=== PATIENT | female | born 1945 | race African-American/Black ===

== ENCOUNTER 2016-06-13 15:33 | Inpatient (IN) | payer MEDICARE, OTHER ==
[2016-06-13 15:50] VITALS: BMI 35.1
--- NOTE | 2016-06-13 16:27 | PDOC ---
History of Present Illness - General History Source: Patient Exam Limitations: No Limitations - History of Present Illness Initial Comments: 06/13/16 18:37 The patient is a 70 year old female, with a significant past medical history of cerebral aneurysm s/p bleed s/p repair (06/2015), HLD, HTN, DM, CAD s/p MIs, CHF , pacemakers, Afib on asa plavix, who presents to the emergency department from [facility] with SOB and cough for 2 weeks. She reports having tightness and soreness in her chest whenever she coughs. She denies any chest pain when she does not cough. She reports having decreased appetite. Patient also notes having chills and being weak since being symptomatic. She reports having a neb treatment with no significant improvement at her [place]. She denies recent fevers, headache or dizziness. She denies recent nausea, vomit, diarrhea or constipation. She denies recent dysuria, frequency, urgency or hematuria. +sick contacts at [facility] Allergies: NKA Social history: Former Smoker. PCP: CARDIO: <Jose A Krueger - Last Filed: 06/13/16 18:37> <Nicolas Riley - Last Filed: 06/13/16 20:57> - General Chief Complaint: Shortness of Breath Stated Complaint: COUGH Time Seen by Provider: 06/13/16 15:56 Past History <Jose A Krueger - Last Filed: 06/13/16 18:37> - Past Medical History Cardiac Disorders: Yes (CAD - [place] X 3 AND AICD PLACEMENT; DISCHARGED FROM [facility] ago) COPD: Yes (CH. BRONCHITIS) CHF: Yes Diabetes: Yes GI Disorders: Yes (GASTRITIS) Disorders: Yes (NEUROGENIC BLADDER) HTN: Yes Hypercholesterolemia: Yes Kidney Stones: No Psychiatric Problems: Yes (depression) Suicide Attempt (Hx): No - Surgical History Cardiac Surgery: Yes (defib. -AICD) Neurologic Surgery: Yes (FOR CEREBRAL aneurysm IN ) - Psycho/Social/Smoking Cessation Hx Anxiety: No Suicidal Ideation: No Smoking History: Former smoker Have you smoked in the past 12 months: No Number of Cigarettes Smoked Daily: 5 If you are a former smoker, when did you quit?: 2005 Information on smoking cessation initiated: No 'Breaking Loose' booklet given: 10/01/16 Hx Alcohol Use: No Drug/Substance Use Hx: No Substance Use Type: None Hx Substance Use Treatment: No <Nicolas Riley - Last Filed: 06/13/16 20:57> - Past Medical History Allergies/Adverse Reactions: Allergies Allergy/AdvReac Type Severity Reaction Status Date / Time No Known Allergies Allergy Verified 03/06/16 18:33 Home Medications: Ambulatory Orders Aspirin [ASA -] 81 mg PO DAILY 01/29/16 Clopidogrel Bisulfate [Plavix -] 75 mg PO DAILY 01/29/16 Colchicine 0.6 mg PO DAILY 01/29/16 Digoxin [Lanoxin -] 0.125 mg PO DAILY 01/29/16 Divalproex [Depakote -] 500 mg PO BID 01/29/16 Docusate Sodium [Colace -] 100 mg PO BID 01/29/16 Ferrous Sulfate 325 mg PO DAILY 01/29/16 Furosemide [Lasix -] 40 mg PO DAILY 01/29/16 Glipizide [Glucotrol] 5 mg PO DAILY 01/29/16 Linaclotide [Linzess] 290 mcg PO DAILY 01/29/16 Lisinopril [Prinivil] 5 mg PO DAILY 01/29/16 Sitagliptin Phosphate [Januvia -] 50 mg PO DAILY 01/29/16 Carvedilol 12.5 mg PO BID #30 tablet 02/27/16 Escitalopram Oxalate [Lexapro -] 20 mg PO DAILY #30 tablet 02/27/16 Ranitidine [Zantac -] 150 mg PO HS #30 tablet 02/27/16 Simvastatin 40 mg PO HS #30 tablet 02/27/16 Spironolactone 25 mg PO DAILY #30 tablet 02/27/16 Zolpidem Tartrate [Ambien] 10 mg PO HS PRN #30 tablet MDD 1 02/27/16 Insulin Sliding Scale [Novolog Vial Sliding Scale -] 0 vial SQ ACHS 03/06/16 Folic Acid - 1 mg PO DAILY tablet 03/11/16 Levofloxacin [Levaquin] 250 mg PO DAILY #1 tablet 03/12/16 Prednisone [Deltasone -] 40 mg PO DAILY #3 tablet 03/12/16 Respiratory Specific PMHX - Complaint Specific PMHX TB (Tuberculosis): No <Nicolas Riley - Last Filed: 06/13/16 20:57> Review of Systems - Review of Systems Able to Perform ROS?: Yes Comments:: 06/13/16 18:37 GENERAL +chills, Loss of Appetite, and weakness. No reported: Fever, Diaphoresis, Malaise, HEENT: No reported: Rhinorrhea, Nasal Congestion, Throat Pain, Throat Swelling, Difficulty Swallowing, Mouth Swelling, Ear Pain, Eye Pain, Visual Changes CARDIOVASCULAR: +chest pressure/pain. No reported: Syncope, Palpitations, Irregular Heart Rate, Peripheral Edema RESPIRATORY: +cough and SOB. No reported: Wheezing, Stridor, Hemoptysis GASTROINTESTINAL: No reported: Abdominal pain, Abdominal Distension, Nausea, Vomiting, Diarrhea, Constipation, Melena, Hematochezia GENITOURINARY: No reported: Dysuria, Frequency, Urgency, Hesitancy, Flank Pain, Genital Pain MUSCULOSKELETAL: No reported: Myalgia, Arthralgia, Joint Swelling, Back pain, Neck Pain SKIN: No reported: Rash, Itching, Pallor HEMEATOLOGIC/IMMUNOLOGIC: No reported: Easy Bleeding, Easy Bruising, Lymphadenopathy, Frequent infections ENDOCRINE: No reported: Unexplained Weight Gain, Unexplained Weight Loss, Heat Intolerance , Cold Intolerance NEUROLOGIC: No reported: Headache, Focal Weakness, Paresthesias, Vertigo, Lightheadedness, Unsteady Gait, Seizure, Mental Status Changes, Incontinence PSYCHIATRIC: No reported: Anxiety, Depression <Jose A Krueger - Last Filed: 06/13/16 18:37> *Physical Exam - Vital Signs Last Vital Signs Temp Pulse Resp BP Pulse Ox 98.9 F 65 22 109/94 94 L 06/13/16 15:46 06/13/16 15:46 06/13/16 15:46 06/13/16 15:46 06/13/16 15:46 - Physical Exam Comments: 06/13/16 18:38 GENERAL: The patient is awake, alert, and fully oriented, obese HEAD: Normocephalic, atraumatic. EYES: extraocular movements intact, sclera anicteric, conjunctiva clear. ENT: Normal voice, Moist mucous membranes. NECK: Normal range of motion, supple LUNGS: Rales and rhonchi bilaterally. +moderately Tachypnic. HEART: Regular rate and rhythm, without murmur, rub or gallop. ABDOMEN: Soft, nontender, normoactive bowel sounds. reducible hernia in the umbilicus No guarding, no rebound.No CVA tenderness EXTREMITIES: Normal range of motion, no edema. No clubbing or cyanosis. No cords , erythema, or tenderness. NEUROLOGICAL: No facial asymmetry, Normal speech. moving all 4 extremities spontaneously and symmetrically PSYCH: Normal mood, normal affect. SKIN: Warm, Dry, normal turgor. <Jose A Krueger - Last Filed: 06/13/16 18:37> - Vital Signs Last Vital Signs Temp Pulse Resp BP Pulse Ox 98.9 F 65 22 109/94 94 L 06/13/16 15:46 06/13/16 15:46 06/13/16 15:46 06/13/16 15:46 06/13/16 15:46 - Physical Exam Comments: 06/13/16 20:56 +subonjunctival hemorrhage in L eye <Nicolas Riley - Last Filed: 06/13/16 20:57> Heart Score/ECG Review - ECG Impressions Comment:: 06/13/16 18:07 Twelve-lead EKG was performed and reviewed by me. ireregularly irregular, left axis deviation ventricular pcing present non specific ST changes <OsvaldoNicolas - Last Filed: 06/13/16 20:57> ED Treatment Course - LABORATORY CBC & Chemistry Diagram: 06/13/16 16:22 06/13/16 16:22 - ADDITIONAL ORDERS Additional order review: Laboratory Results 06/13/16 06/13/16 06/13/16 16:31 16:31 16:22 INR 1.22 H Sodium 137 Potassium 4.8 Chloride 100 Carbon Dioxide 27 Anion Gap 10 BUN 36 H D Creatinine 1.2 H Creat Clearance w eGFR 44.29 Random Glucose 91 D Lactic Acid 1.149 Calcium 8.6 Total Bilirubin 0.8 D AST 56 H D ALT 18 D Alkaline Phosphatase 93 Creatine Kinase 962 H D Troponin I 0.12 H B-Natriuretic Peptide 3262.81 H Total Protein 7.3 Albumin 3.4 06/13/16 16:22 RBC Cancelled MCV Cancelled MCHC Cancelled RDW Cancelled MPV Cancelled Neutrophils % Cancelled Lymphocytes % Cancelled Monocytes % Cancelled Eosinophils % Cancelled Basophils % Cancelled - Medications Given in the ED: ED Medications Discontinued Medications Generic Name Dose Route Start Last Admin Trade Name Narendra PRN Reason Stop Dose Admin Albuterol/Ipratropium 1 amp 06/13/16 17:28 06/13/16 17:57 Duoneb - NEB 06/13/16 17:29 1 amp ONCE ONE Administration Methylprednisolone Sodium Succinate 125 mg 06/13/16 17:28 06/13/16 17:31 Solu-Medrol - IVPB 06/13/16 17:29 125 mg ONCE ONE Administration <Jose A Krueger - Last Filed: 06/13/16 18:37> - LABORATORY CBC & Chemistry Diagram: 06/13/16 18:43 06/13/16 16:22 - RADIOLOGY Radiology Studies Ordered: Category Date Time Status CHEST X-RAY PORTABLE* [RAD] Stat Radiology 06/13/16 16:24 Ordered <Nicolas Riley - Last Filed: 06/13/16 20:57> Medical Decision Making - Medical Decision Making 06/13/16 18:04 70y F hx of chf, copd/asthma, cad from [facility] here with worsening cough/sob for several weeks on exam pt noted to be mildly tachypniec, vitals noted for o2 sat of 94% pulmonary exam noted for wheezing/rhonchi diffusely suspect copd exacerbation, ?trigger of pna vs viral syndrome vs influenza will ck cxr, labs will give nebs, steroids will reassess, likley admission A portion of this note was documented by scribe services under my direction. I have reviewed the details of the note, within reason, and agree with the documentation with the following case summary and management plan written by me 06/13/16 19:34 pts labs reiovewed no leukocytosis noted pts trop at .12 and bnp slightly elevated pt feeling improved with solumedrol and duo neb will admit for copd ecacerbation - likely viral exaccerbation case d/w dr. owens agreed with admission as trop is .[address] in tele until ruled out Case discussed in detail with admitting physician including history, physical exam and ancillary studies. Admitting physician has assumed care for the patient, will follow all pending diagnostics and will complete the evaluation and treatment. <Nicolas Riley - Last Filed: 06/13/16 20:57> *DC/Admit/Observation/Transfer - Attestations Scribe Attestion: 06/13/16 18:38 Documentation prepared by Jose A Krueger, acting as medical collector for Nicolas Riley MD. <Jose A Krueger - Last Filed: 06/13/16 18:37> - Discharge Dispostion Admit: Yes <Nicolas Riley - Last Filed: 06/13/16 20:57> Diagnosis at time of Disposition: COPD exacerbation, Subconjunctival hemorrhage of left eye Atrial fibrillation Qualifiers: Atrial fibrillation type: chronic Qualified Code(s): I48.2 - Chronic atrial fibrillation - Discharge Dispostion Condition at time of disposition: Stable - Referrals
[2016-06-13 16:55] LABS: INR 1.22 (0.82-1.09); PROTHROMBIN TIME (PATIENT) 13.5 SEC (9.98-11.88)
[2016-06-13 17:19] LABS: ALBUMIN 3.4 g/dl (3.4-5.0); BILIRUBIN,TOTAL 0.8 mg/dL (0.2-1.0); CALCIUM 8.6 mg/dL (8.5-10.1); CREATININE 1.2 mg/dL (0.55-1.02); TOT PROT 7.3 g/dl (6.4-8.2)
[2016-06-13 17:22] LABS: TROPONIN I 0.12 ng/ml (0.00-0.05)
[2016-06-13] MEDS ORDERED: methylPREDNISolone NA SUCC 125 MG/2 ML VIAL IVPB ONE (17:28)
[2016-06-13] MEDS ORDERED: ALBUTEROL SO4 2.5/IPRATROPIUM 0.5 INH SOL 3 ML VIAL.NEB. NEB ONE (17:28)
[2016-06-13] MEDS ORDERED: methylPREDNISolone NA SUCC 125 MG/2 ML VIAL ONE (17:32)
[2016-06-13 19:15] LABS: BASOPHIL 0.6 % (0-2.0); EOSINOPHIL 2.3 % (0-4.5); MCH 27.5 pg (25.7-33.7); MCHC 32.4 g/dl (32.0-36.0); MEAN CELL VOLUME 84.9 fl (80-96); NEUTROPHILS 48.6 % (42.8-82.8); RDW 19.2 % (11.6-15.6); WHITE BLOOD COUNT 5.4 K/mm3 (4.0-10.0)
[2016-06-13 20:14] LABS: PLATELET COUNT 112 K/MM3 (134-434)
[2016-06-13 20:15] LABS: MEAN PLT VOLUME 11.5 fl (7.5-11.1)
[2016-06-13 20:16] LABS: PLATELET COMMENT2 NO CLUMPING NOTED; PLATELET COMMENT3 NO CLOTTING DETECTED; PLATELET ESTIMATE SLT DECREASED (NORMAL)
[2016-06-13] MEDS ORDERED: PATIENT'S OWN MEDICATION (NON-FORMULARY) (Zolpidem Tartrate [Ambien] 10 MG) PO PRN (21:34)
[2016-06-13] MEDS ORDERED: PATIENT'S OWN MEDICATION (NON-FORMULARY) (Simvastatin [Simvastatin] 40 MG) PO SCH (22:00)
[2016-06-13] MEDS ORDERED: CARVEDILOL 12.5 MG TABLET (FP) ONE (22:27)
[2016-06-13] MEDS ORDERED: DIVALPROEX SODIUM 500 MG TABLET E.C. ONE (22:28)
[2016-06-13] MEDS ORDERED: ATORVASTATIN CA 40 MG TABLET (FP) ONE (22:28)
[2016-06-13] MEDS ORDERED: DOCUSATE SODIUM 100 MG CAPSULE (FP) PO ONE (22:28)
[2016-06-13] MEDS: ATORVASTATIN CA 20 MG TABLET (FP) PO SCH (22:41)
[2016-06-13] MEDS: DIVALPROEX SODIUM 500 MG TABLET E.C. PO SCH (22:41)
[2016-06-13] MEDS: CARVEDILOL 12.5 MG TABLET (FP) PO SCH (22:41)
[2016-06-13] MEDS: DOCUSATE SODIUM 100 MG CAPSULE (FP) PO SCH (22:41)
[2016-06-14] MEDS: guaiFENesin/D-METHORPHAN HB 10 ML UNIT-DOSE CUPS PO PRN ×3 (01:36→17:19)
[2016-06-14] MEDS: ACETAMINOPHEN 325 MG TABLET (FP) PO PRN ×2 (01:38→20:41)
[2016-06-14] MEDS: methylPREDNISolone NA SUCC 40 MG/1 ML VIAL IVPB SCH ×3 (01:39→18:07)
[2016-06-14] MEDS: glipiZIDE 5 MG TABLET (FP) PO SCH (06:32)
[2016-06-14] MEDS: sitaGLIPtin PHOSPHATE 50 MG TABLET PO SCH (06:32)
[2016-06-14] MEDS: INSULIN SLIDING SCALE (NOVOLOG) 1 VIAL SQ SCH ×3 (06:34→17:28)
[2016-06-14 08:18] LABS: BASOPHIL 0.2 % (0-2.0); MCH 27.3 pg (25.7-33.7); MCHC 32.3 g/dl (32.0-36.0); MEAN CELL VOLUME 84.3 fl (80-96); MEAN PLT VOLUME 11.5 fl (7.5-11.1); NEUTROPHILS 76.6 % (42.8-82.8); PLATELET COUNT 107 K/MM3 (134-434); WHITE BLOOD COUNT 5.3 K/mm3 (4.0-10.0)
[2016-06-14 08:38] LABS: ALBUMIN 3.1 g/dl (3.4-5.0); BILIRUBIN,TOTAL 0.7 mg/dL (0.2-1.0); CALCIUM 8.3 mg/dL (8.5-10.1); CREATININE 1.3 mg/dL (0.55-1.02)
[2016-06-14] MEDS ORDERED: PATIENT'S OWN MEDICATION (NON-FORMULARY) (Colchicine [Colchicine] 0.6 MG) PO SCH (10:00)
--- NOTE | 2016-06-14 10:30 | HP ---
Admitting History and Physical - Primary Care Physician PCP: Madelaine Collier - Admission Chief Complaint: SOB , chest pain History of Present Illness: - History of Present Illness Initial Comments: 06/13/16 18:37 The patient is a 70 year old female, with a significant past medical history of cerebral aneurysm s/p bleed s/p repair (06/2015), HLD, HTN, DM, CAD s/p MIs, CHF , pacemakers, Afib on asa plavix, who presents to the emergency department from [facility] with SOB and cough for 2 weeks. She reports having tightness and soreness in her chest whenever she coughs. She denies any chest pain when she does not cough. She reports having decreased appetite. Patient also notes having chills and being weak since being symptomatic. She reports having a neb treatment with no significant improvement at her [place]. She denies recent fevers, headache or dizziness. She denies recent nausea, vomit, diarrhea or constipation. She denies recent dysuria, frequency, urgency or hematuria. +sick contacts at [facility] Allergies: NKA Social history: Former Smoker. PCP: CARDIO: Pt examined by in Tele KNown to me from [facility]- was seen by me earlier this week for SOB -- started on PO prednisone , CXR done in [place] negative Pt was not feeling better and son wanted her to be transferred to hospital for evaluation. She c/o chest pain when she coughs. Today breathing is better, has a productive cough. 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 (c/p cerebral bleed (aneurysm-->repair) 07/2015 in [place]) Cardiovascular: Yes: AFIB, CHF (systolic), HTN, DC Renal/: Yes: Renal Inusuff ...: No Psych: Yes: Bipolar, Depression - Past Surgical History Past Surgical History: Yes: AICD - Smoking History Smoking history: Former smoker Have you smoked in the past 12 months: No Aproximately how many cigarettes per day: 10 If you are a former smoker, when did you quit?: 2005 - Alcohol/Substance Use Hx Alcohol Use: Yes (SOCIALLY) Home Medications - Allergies Allergies/Adverse Reactions: Allergies Allergy/AdvReac Type Severity Reaction Status Date / Time No Known Allergies Allergy Verified 03/06/16 18:33 - Home Medications Home Medications: Ambulatory Orders Aspirin [ASA -] 81 mg PO DAILY 01/29/16 Clopidogrel Bisulfate [Plavix -] 75 mg PO DAILY 01/29/16 Colchicine 0.6 mg PO DAILY 01/29/16 Digoxin [Lanoxin -] 0.125 mg PO DAILY 01/29/16 Divalproex [Depakote -] 500 mg PO BID 01/29/16 Docusate Sodium [Colace -] 100 mg PO BID 01/29/16 Ferrous Sulfate 325 mg PO DAILY 01/29/16 Furosemide [Lasix -] 40 mg PO DAILY 01/29/16 Glipizide [Glucotrol] 5 mg PO DAILY 01/29/16 Linaclotide [Linzess] 290 mcg PO DAILY 01/29/16 Lisinopril [Prinivil] 5 mg PO DAILY 01/29/16 Sitagliptin Phosphate [Januvia -] 50 mg PO DAILY 01/29/16 Carvedilol 12.5 mg PO BID #30 tablet 02/27/16 Escitalopram Oxalate [Lexapro -] 20 mg PO DAILY #30 tablet 02/27/16 Ranitidine [Zantac -] 150 mg PO HS #30 tablet 02/27/16 Simvastatin 40 mg PO HS #30 tablet 02/27/16 Spironolactone 25 mg PO DAILY #30 tablet 02/27/16 Zolpidem Tartrate [Ambien] 10 mg PO HS PRN #30 tablet MDD 1 02/27/16 Insulin Sliding Scale [Novolog Vial Sliding Scale -] 0 vial SQ ACHS 03/06/16 Folic Acid - 1 mg PO DAILY tablet 03/11/16 Levofloxacin [Levaquin] 250 mg PO DAILY #1 tablet 03/12/16 Prednisone [Deltasone -] 40 mg PO DAILY #3 tablet 03/12/16 Family Disease History - Family Disease History Family Disease History: Other: Daughter (STOPPED URING MARIJUANA; BIPOLAR DISORDER;HTN) Review of Systems - Review of Systems Constitutional: denies: Chills, Fever Cardiovascular: reports: Chest Pain. denies: Palpitations Respiratory: reports: Cough, SOB, Wheezing Physical Examination Vital Signs: Vital Signs Temperature 98 F 06/14/16 06:00 Pulse Rate 72 06/14/16 06:00 Respiratory Rate 18 06/14/16 09:00 Blood Pressure 124/54 06/14/16 06:00 O2 Sat by Pulse Oximetry (%) 99 06/14/16 09:00 Constitutional: Yes: No Distress, Calm Cardiovascular: Yes: Pulse Irregular Respiratory: Yes: Diminished, Rhonchi Gastrointestinal: Yes: Normal Bowel Sounds, Soft, Abdomen, Obese. No: Distention Edema: Yes Edema: LLE: Trace, RLE: Trace Psychiatric: Yes: Alert, Oriented Labs: CBC, BMP 06/14/16 05:45 06/14/16 05:45 Imaging - Results Chest X-ray: Image Reviewed (No infiltrate) EKG: Image Reviewed (Afib) Problem List - Problems (1) COPD exacerbation Code(s): J44.1 - CHRONIC OBSTRUCTIVE PULMONARY DISEASE W (ACUTE) EXACERBATION (2) Chest pain Code(s): R07.9 - CHEST PAIN, UNSPECIFIED Qualifiers: Chest pain type: unspecified Qualified Code(s): R07.9 - Chest pain, unspecified (3) NSTEMI (non-ST elevated myocardial infarction) Code(s): I21.4 - NON-ST ELEVATION (NSTEMI) MYOCARDIAL INFARCTION (4) Atrial fibrillation Code(s): I48.91 - UNSPECIFIED ATRIAL FIBRILLATION Qualifiers: Atrial fibrillation type: chronic Qualified Code(s): I48.2 - Chronic atrial fibrillation Assessment/Plan PLAN -- Check cardiac enzymes -- spoke with [employer] Grinder -- will need stress test -- on Solumedrol -- Nebs as needed -- DVT prophylaxis-- Lovenox -- Pt not on AC due to h/o alcoholic abuse, pt is now in [facility] [place] , but tells me she does not want to go there
[2016-06-14] MEDS: DOCUSATE SODIUM 100 MG CAPSULE (FP) PO SCH ×2 (11:08→22:11)
[2016-06-14] MEDS: SPIRONOLACTONE 25 MG TABLET (FP) PO SCH (11:09)
[2016-06-14] MEDS: CARVEDILOL 12.5 MG TABLET (FP) PO SCH ×2 (11:09→22:11)
[2016-06-14] MEDS: FUROSEMIDE 40 MG TABLET (FP) PO SCH (11:09)
[2016-06-14] MEDS: ESCITALOPRAM OXALATE 20 MG TABLET (FP) PO SCH (11:09)
[2016-06-14] MEDS: ASPIRIN 81 MG CHEWABLE TABLETS PO SCH (11:09)
[2016-06-14] MEDS: LISINOPRIL 5 MG TABLET (FP) PO SCH (11:09)
[2016-06-14] MEDS: CLOPIDOGREL BISULFATE 75 MG TABLET (FP) PO SCH (11:09)
[2016-06-14] MEDS: DIGOXIN 0.125 MG TABLET (FP) PO SCH (11:10)
[2016-06-14] MEDS: COLCHICINE 0.6 MG TABLET (FP) PO SCH (11:10)
[2016-06-14] MEDS: PANTOPRAZOLE 40 MG TABLET (FP) PO SCH (11:10)
[2016-06-14] MEDS ORDERED: PT OWN MED DRAWER 7, Y5N ONE (11:12)
[2016-06-14] MEDS: DIVALPROEX SODIUM 500 MG TABLET E.C. PO SCH ×2 (11:13→22:14)
[2016-06-14] MEDS: POLYETHYLENE GLYCOL 3350 119 GM BTL PO SCH (11:14)
[2016-06-14 11:49] LABS: TROPONIN I 0.05 ng/ml (0.00-0.05)
--- NOTE | 2016-06-14 11:51 | CON.CARD ---
Consult Consult Specialty:: Cardiology Referred by:: Dr. Vaughn Reason for Consultation:: Chest pain, elevated troponin - History of Present Illness Chief Complaint: SOB, cough, chest tightness History of Present Illness: 70 year old woman with a history of HTN, HLD, DM II, CAD reported prior WI's x3 , last cardiac cath 12/2015 ([place]) showed non-obstructive CAD (Left Main: 30% ; LAD prox 30%, mid 30%, distal 30%; LCs mid 30%; om1 40%; rcX Dominant vessel, mid 30%; LVEF 30%; peripheral vessel disease including left external iliac 80% stenosis), Chronic systolic CHF with severe LV systolic dysfunction s/p Satya Sci ICD 2006, AFib previously on coumadin stopped after ICH (cerebral aneursym s/p clipping), COPD, prior etoh abuse, bipolar admitted from [place] with c/o cough, sob , chest tightness. Pt. seen and examined today in [facility]. coughing throughout the exam. no current chest pain. does note intermittent b/l LE edema improved with leg elevation. 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 (c/p cerebral bleed (aneurysm-->repair) 07/2015 in [place]) Cardio/Vascular: Yes: AFIB, CHF (systolic), HTN, WI Pulmonary: Yes: Bronchitis Renal/: Yes: Renal Inusuff ...: No Psych: Yes: Bipolar, Depression - Past Surgical History Past Surgical History: Yes: AICD - Alcohol/Substance Use Hx Alcohol Use: Yes (SOCIALLY) - Smoking History Smoking history: Former smoker Have you smoked in the past 12 months: No Aproximately how many cigarettes per day: 10 If you are a former smoker, when did you quit?: 2005 - Social History Usual Living Arrangement: Custodial ADL: Support Services History of Recent Travel: No Home Medications - Allergies Allergies/Adverse Reactions: Allergies Allergy/AdvReac Type Severity Reaction Status Date / Time No Known Allergies Allergy Verified 03/06/16 18:33 - Home Medications Home Medications: Ambulatory Orders Aspirin [ASA -] 81 mg PO DAILY 01/29/16 Clopidogrel Bisulfate [Plavix -] 75 mg PO DAILY 01/29/16 Colchicine 0.6 mg PO DAILY 01/29/16 Digoxin [Lanoxin -] 0.125 mg PO DAILY 01/29/16 Divalproex [Depakote -] 500 mg PO BID 01/29/16 Docusate Sodium [Colace -] 100 mg PO BID 01/29/16 Ferrous Sulfate 325 mg PO DAILY 01/29/16 Furosemide [Lasix -] 40 mg PO DAILY 01/29/16 Glipizide [Glucotrol] 5 mg PO DAILY 01/29/16 Linaclotide [Linzess] 290 mcg PO DAILY 01/29/16 Lisinopril [Prinivil] 5 mg PO DAILY 01/29/16 Sitagliptin Phosphate [Januvia -] 50 mg PO DAILY 01/29/16 Carvedilol 12.5 mg PO BID #30 tablet 02/27/16 Escitalopram Oxalate [Lexapro -] 20 mg PO DAILY #30 tablet 02/27/16 Ranitidine [Zantac -] 150 mg PO HS #30 tablet 02/27/16 Simvastatin 40 mg PO HS #30 tablet 02/27/16 Spironolactone 25 mg PO DAILY #30 tablet 02/27/16 Zolpidem Tartrate [Ambien] 10 mg PO HS PRN #30 tablet MDD 1 02/27/16 Insulin Sliding Scale [Novolog Vial Sliding Scale -] 0 vial SQ ACHS 03/06/16 Folic Acid - 1 mg PO DAILY tablet 03/11/16 Levofloxacin [Levaquin] 250 mg PO DAILY #1 tablet 03/12/16 Prednisone [Deltasone -] 40 mg PO DAILY #3 tablet 03/12/16 Family Disease History - Family Disease History Family Disease History: Other: Daughter (STOPPED URING MARIJUANA; BIPOLAR DISORDER;HTN) Review of Systems - Review of Systems Constitutional: denies: No Symptoms, Chills, Diaphoresis, Fever, Lethargy, Loss of Appetite, Malaise, Night Sweats, Unintentional Wgt. Loss, Weakness, Other Eyes: denies: No Symptoms, Blind Spots, Blurred Vision, Double Vision, Eye Pain , Floaters, Photophobia, Recent Change in Vision, Other HENT: denies: No Symptoms, Difficult Swallowing, Ear Discharge, Ear Pain, Epistaxis, Gingival Bleeding, Hearing Loss, Mouth Swelling, Nasal Congestion, Ocular Prosthesis, Throat Pain, Toothache, Ringing in Ears, Other Neck: denies: No Symptoms, Decreased ROM, Lumps, Pain on Movement, Stiffness, Swollen Glands, Tenderness, Other Cardiovascular: reports: Chest Pain, Edema, Shortness of Breath. denies: No Symptoms, Palpitations, Other Respiratory: reports: Cough, SOB, SOB on Exertion, Wheezing. denies: No Symptoms, Exercise Intolerance, Hemoptysis, Orthopnea, PND, Snoring, Other Gastrointestinal: denies: No Symptoms, Abdominal Pain, Bloating, Constipation, Diarrhea, Dysphagia, Indigestion, Melena, Nausea, Rectal Bleeding, Vomiting, Vomiting Blood, Other Genitourinary: denies: No Symptoms, Burning, Discharge, Dysuria, Flank Pain, Frequency, Hematuria, Incontinence, Lesions, Menses, Pain, Testicular Mass, Testicular Pain, Testicular Swelling, Urgency, Vaginal Bleeding, Other Breasts: denies: No Symptoms Reported, See HPI, Breast Implants, Discharge from Nipple, Lumps, Pain, Skin Changes, Other Musculoskeletal: denies: No Symptoms, Back Pain, Crepitus, Decreased ROM, Extremity Pain, Joint Pain, Joint Swelling, Muscle Pain, Muscle Cramps, Muscle Weakness, Other Integumentary: denies: No Symptoms, Blister, Bruising, Change in Color, Eczema, Erythema, Incision, Lesions, Lump, Pallor, Pruritis, Rash, Wound, Other Neurological: denies: No Symptoms, Change in LOC, Change in Speech, Confusion, Dizziness, Headache, Incoordination, Numbness, Parasthesia, Pre-Existing Deficit , Seizure, Syncope, Tremors, Unsteady Gait, Weakness, Other Endocrine: denies: No Symptoms, Excessive Sweating, Flushing, Increased Hunger, Increased Thirst, Intolerance to Cold, Intolerance to Heat, Unexplained Weight Gain, Unexplained Weight Loss, Other Hematology/Lymphatic: denies: No Symptoms, Easily Bruised, Excessive Bleeding, Swollen Glands, Other Psychiatric: denies: No Symptoms, Altered Sleep Pattern, Anxiety, Depression, Hallucinations, Panic, Paranoia, Suicidal, Other - Risk Factors Known Risk Factors: Yes: Diabetes Mellitus, Hypercholesterolemia, Hypertension, Prior WI /Emb Stroke Vital Signs: Vital Signs Temperature 98 F 06/14/16 06:00 Pulse Rate 68 06/14/16 11:32 Respiratory Rate 18 06/14/16 11:32 Blood Pressure 129/61 06/14/16 11:32 O2 Sat by Pulse Oximetry (%) 99 06/14/16 09:00 Constitutional: Yes: No Distress, Calm, Obese Eyes: Yes: Conjunctiva Clear, EOM Intact, PERRL HENT: Yes: Atraumatic, Normocephalic Neck: Yes: Supple, Trachea Midline Respiratory: Yes: Regular, Cough, On Nasal O2, Rhonchi, SOB, Wheezes. No: Rales Gastrointestinal: Yes: WNL, Normal Bowel Sounds, Soft. No: Distention, Tenderness Renal/: Yes: WNL Cardiovascular: Yes: Pulse Irregular. No: Regular Rate and Rhythm, Bradycardia , Tachycardia, Gallop, Rub, Varicosities JVD: No Carotid Bruit: No PMI: Non-Displaced Heart Sounds: Yes: S1, S2. No: Split S2, S3, S4, Clicks, Gallop, Rub Murmur: No: Systolic Murmur, Diastolic Murmur Musculoskeletal: Yes: WNL Extremities: Yes: WNL Edema: LLE: Trace, RLE: Trace Peripheral Pulses WNL: Yes Peripheral Pulses: 2+ Left Doralis Pedis, 2+ Right Dorsalis Pedis Integumentary: Yes: WNL Neurological: Yes: Alert, Oriented Psychiatric: Yes: Alert, Oriented - Other Data Labs, Other Data: CBC, BMP 06/14/16 05:45 06/14/16 05:45 INR, PTT INR 1.22 (0.82-1.09) H 06/13/16 16:31 Troponin, BNP 06/14/16 05:45 Troponin I Cancelled Troponin, BNP 06/14/16 05:45 Troponin I Cancelled ekg-not in chart, reportedly vpaced Echo: Pending, Report Reviewed Prior Cardiac Procedures: Cardiac Catheterization Ejection Fraction %: LVEF < 40 % Imaging - Results Chest X-ray: Report Reviewed, Image Reviewed EKG: Report Reviewed, Image Reviewed Other: Report Reviewed, Image Reviewed Assessment/Plan 70 year old woman with a history of HTN, HLD, DM II, CAD reported prior WI's x3 , last cardiac cath 12/2015 ([place]) showed non-obstructive CAD (Left Main: 30% ; LAD prox 30%, mid 30%, distal 30%; LCs mid 30%; om1 40%; rcX Dominant vessel, mid 30%; LVEF 30%; peripheral vessel disease including left external iliac 80% stenosis), Chronic systolic CHF with severe LV systolic dysfunction s/p Satya Sci ICD 2006, AFib previously on coumadin stopped after ICH (cerebral aneursym s/p clipping), COPD, prior etoh abuse, bipolar admitted from [place] with c/o cough, sob , chest tightness. Chest pain-atypical, likely secondary to bronchitis, unlikely acs -recent cardiac cath as above, non-obs CAD -1st trop 0.12 trended down to 0.05 -check 3rd set of cardiac enzymes this afternoon -cont home cardiac meds -treat for bronchitis and monitor for improvement in symptoms -cont tele monitoring SOB-likely bronchitis, appears overall euvolemic -known chronic systolic chf and severe LV systolic dysfunction -cont home lasix for now -tx of acute bronchitis -will monitor for need for increased diuresis afib-hr controlled -cont digoxin and coreg -cont ASA -not on full AC as per prior reports due to history of ICH and cerebral aneurysm -monitor tele
--- NOTE | 2016-06-14 13:38 | EKG ---
Test Reason : Blood Pressure : / mmHG Vent. Rate : 071 BPM Atrial Rate : 192 BPM P-R Int : 000 ms QRS Dur : 102 ms QT Int : 402 ms P-R-T Axes : 000 -43 167 degrees QTc Int : 436 ms ATRIAL FIBRILLATION WITH DEMAND ventricular-paced complexes LEFT AXIS DEVIATION MINIMAL VOLTAGE CRITERIA FOR LVH, MAY BE NORMAL VARIANT NONSPECIFIC ST AND T WAVE ABNORMALITY ABNORMAL ECG WHEN COMPARED WITH ECG OF 07-MAR-2016 00:25, NO SIGNIFICANT CHANGE WAS FOUND Confirmed by VINAY ASHLEY MD ([id number]) on 06/14/2016 1:37:43 PM Referred By: Confirmed By:VINAY ASHLEY MD
[2016-06-14] MEDS: ZOLPIDEM TARTRATE 5 MG TABLET PO PRN (22:11)
[2016-06-14] MEDS: ATORVASTATIN CA 20 MG TABLET (FP) PO SCH (22:11)
[2016-06-14] MEDS: ALBUTEROL SO4 2.5/IPRATROPIUM 0.5 INH SOL 3 ML VIAL.NEB. NEB PRN (22:40)
[2016-06-15] MEDS: methylPREDNISolone NA SUCC 40 MG/1 ML VIAL IVPB SCH ×3 (02:46→17:59)
[2016-06-15] MEDS: ALBUTEROL SO4 2.5/IPRATROPIUM 0.5 INH SOL 3 ML VIAL.NEB. NEB PRN (06:23)
[2016-06-15] MEDS: glipiZIDE 5 MG TABLET (FP) PO SCH (06:43)
[2016-06-15] MEDS: sitaGLIPtin PHOSPHATE 50 MG TABLET PO SCH (06:43)
[2016-06-15] MEDS: INSULIN SLIDING SCALE (NOVOLOG) 1 VIAL SQ SCH ×3 (06:43→17:59)
--- NOTE | 2016-06-15 09:27 | PN ---
Progress Note, Physician Chief Complaint: has wheezing denies chest pain - Current Medication List Current Medications: Active Medications Acetaminophen (Tylenol -) 650 mg PO Q6H PRN PRN Reason: FEVER OR PAIN Last Admin: 06/14/16 20:41 Dose: 650 mg Albuterol/Ipratropium (Duoneb -) 1 amp NEB Q6H PRN PRN Reason: SHORTNESS OF BREATH Last Admin: 06/15/16 06:23 Dose: 1 amp Aspirin (Asa -) 81 mg PO DAILY [facility] Last Admin: 06/14/16 11:09 Dose: 81 mg Atorvastatin Calcium (Lipitor -) 20 mg PO HS [facility] Last Admin: 06/14/16 22:11 Dose: 20 mg Carvedilol (Coreg -) 12.5 mg PO BID [facility] Last Admin: 06/14/16 22:11 Dose: 12.5 mg Clopidogrel Bisulfate (Plavix -) 75 mg PO DAILY [facility] Last Admin: 06/14/16 11:09 Dose: 75 mg Colchicine (Colcrys -) 0.6 mg PO DAILY [facility] Last Admin: 06/14/16 11:10 Dose: 0.6 mg Digoxin (Lanoxin -) 0.125 mg PO DAILY [facility] Last Admin: 06/14/16 11:10 Dose: 0.125 mg Divalproex Sodium (Depakote -) 500 mg PO BID [facility] Last Admin: 06/14/16 22:14 Dose: 500 mg Docusate Sodium (Colace -) 100 mg PO BID [facility] Last Admin: 06/14/16 22:11 Dose: 100 mg Escitalopram Oxalate (Lexapro -) 20 mg PO DAILY [facility] Last Admin: 06/14/16 11:09 Dose: 20 mg Furosemide (Lasix -) 40 mg PO DAILY [facility] Last Admin: 06/14/16 11:09 Dose: 40 mg Glipizide (Glucotrol -) 5 mg PO ACBK [facility] Last Admin: 06/15/16 06:43 Dose: 5 mg Guaifenesin (Robitussin Dm -) 10 ml PO Q6H PRN Last Admin: 06/14/16 17:19 Dose: 10 ml Insulin Aspart (Novolog Vial Sliding Scale -) 1 vial SQ TIDAC [facility] PRN Reason: Protocol Last Admin: 06/15/16 06:43 Dose: 2 units Lisinopril (Prinivil) 5 mg PO DAILY [facility] Last Admin: 06/14/16 11:09 Dose: 5 mg Methylprednisolone Sodium Succinate (Solu-Medrol -) 40 mg IVPB Q8H-IV [facility] Last Admin: 06/15/16 02:46 Dose: 40 mg Pantoprazole Sodium (Protonix -) 40 mg PO DAILY [facility] Last Admin: 06/14/16 11:10 Dose: 40 mg Polyethylene Glycol (Miralax (For Daily Use) -) 17 gm PO DAILY [facility] Last Admin: 06/14/16 11:14 Dose: 17 grams Sitagliptin Phosphate (Januvia -) 50 mg PO ACBK [facility] Last Admin: 06/15/16 06:43 Dose: 50 mg Spironolactone (Aldactone -) 25 mg PO DAILY [facility] Last Admin: 06/14/16 11:09 Dose: 25 mg Zolpidem Tartrate (Ambien -) 5 mg PO HS PRN PRN Reason: INSOMNIA Last Admin: 06/14/16 22:11 Dose: 5 mg - Objective Vital Signs: Vital Signs Temperature 98.4 F 06/15/16 02:27 Pulse Rate 74 06/15/16 06:00 Respiratory Rate 20 06/15/16 06:00 Blood Pressure 129/74 06/15/16 06:00 O2 Sat by Pulse Oximetry (%) 96 06/14/16 21:00 Constitutional: Yes: No Distress Cardiovascular: Yes: Pulse Irregular Respiratory: Yes: Diminished, Rhonchi Gastrointestinal: Yes: Normal Bowel Sounds, Soft, Abdomen, Obese. No: Distention, Tenderness Edema: No Labs: CBC, BMP 06/14/16 05:45 06/14/16 05:45 INR, PTT INR 1.22 (0.82-1.09) H 06/13/16 16:31 Problem List - Problems (1) COPD exacerbation Code(s): J44.1 - CHRONIC OBSTRUCTIVE PULMONARY DISEASE W (ACUTE) EXACERBATION (2) Chest pain Code(s): R07.9 - CHEST PAIN, UNSPECIFIED Qualifiers: Chest pain type: unspecified Qualified Code(s): R07.9 - Chest pain, unspecified (3) NSTEMI (non-ST elevated myocardial infarction) Code(s): I21.4 - NON-ST ELEVATION (NSTEMI) MYOCARDIAL INFARCTION (4) Atrial fibrillation Code(s): I48.91 - UNSPECIFIED ATRIAL FIBRILLATION Qualifiers: Atrial fibrillation type: chronic Qualified Code(s): I48.2 - Chronic atrial fibrillation Assessment/Plan PLAN -- cardiac enzymes negative -- start Ceftriaxone -- on Solumedrol-- continue current dose -- Nebs as needed -- DVT prophylaxis-- Lovenox -- Pt not on AC due to h/o alcoholic abuse, pt is now in [facility] [place] , but tells me she does not want to go there
[2016-06-15] MEDS: ALBUTEROL SO4 2.5/IPRATROPIUM 0.5 INH SOL 3 ML VIAL.NEB. NEB SCH ×4 (10:00→21:48)
[2016-06-15] MEDS: DOCUSATE SODIUM 100 MG CAPSULE (FP) PO SCH ×2 (10:03→21:34)
[2016-06-15] MEDS: DIGOXIN 0.125 MG TABLET (FP) PO SCH (10:03)
[2016-06-15] MEDS: CLOPIDOGREL BISULFATE 75 MG TABLET (FP) PO SCH (10:03)
[2016-06-15] MEDS: FUROSEMIDE 40 MG TABLET (FP) PO SCH (10:03)
[2016-06-15] MEDS: ESCITALOPRAM OXALATE 20 MG TABLET (FP) PO SCH (10:03)
[2016-06-15] MEDS: SPIRONOLACTONE 25 MG TABLET (FP) PO SCH (10:03)
[2016-06-15] MEDS: LISINOPRIL 5 MG TABLET (FP) PO SCH (10:03)
[2016-06-15] MEDS: POLYETHYLENE GLYCOL 3350 119 GM BTL PO SCH (10:04)
[2016-06-15] MEDS: DIVALPROEX SODIUM 500 MG TABLET E.C. PO SCH ×2 (10:04→21:34)
[2016-06-15] MEDS: COLCHICINE 0.6 MG TABLET (FP) PO SCH (10:04)
[2016-06-15] MEDS: PANTOPRAZOLE 40 MG TABLET (FP) PO SCH (10:04)
[2016-06-15] MEDS: CARVEDILOL 12.5 MG TABLET (FP) PO SCH ×2 (10:05→21:34)
[2016-06-15] MEDS: ASPIRIN 81 MG CHEWABLE TABLETS PO SCH (10:05)
[2016-06-15] MEDS: CEFTRIAXONE 50 ML IVPB SCH (10:06)
--- NOTE | 2016-06-15 10:18 | PN ---
Progress Note, Physician History of Present Illness: seen and examined today in nad. states she is feeling slightly better today. still coughing frequently, wheezing, sob. - Current Medication List Current Medications: Active Medications Acetaminophen (Tylenol -) 650 mg PO Q6H PRN PRN Reason: FEVER OR PAIN Last Admin: 06/14/16 20:41 Dose: 650 mg Albuterol/Ipratropium (Duoneb -) 1 amp NEB Q4H [facility] Aspirin (Asa -) 81 mg PO DAILY [facility] Last Admin: 06/15/16 10:05 Dose: 81 mg Atorvastatin Calcium (Lipitor -) 20 mg PO HS [facility] Last Admin: 06/14/16 22:11 Dose: 20 mg Carvedilol (Coreg -) 12.5 mg PO BID [facility] Last Admin: 06/15/16 10:05 Dose: 12.5 mg Clopidogrel Bisulfate (Plavix -) 75 mg PO DAILY [facility] Last Admin: 06/15/16 10:03 Dose: 75 mg Colchicine (Colcrys -) 0.6 mg PO DAILY [facility] Last Admin: 06/15/16 10:04 Dose: 0.6 mg Digoxin (Lanoxin -) 0.125 mg PO DAILY [facility] Last Admin: 06/15/16 10:03 Dose: 0.125 mg Divalproex Sodium (Depakote -) 500 mg PO BID [facility] Last Admin: 06/15/16 10:04 Dose: 500 mg Docusate Sodium (Colace -) 100 mg PO BID [facility] Last Admin: 06/15/16 10:03 Dose: 100 mg Escitalopram Oxalate (Lexapro -) 20 mg PO DAILY [facility] Last Admin: 06/15/16 10:03 Dose: 20 mg Furosemide (Lasix -) 40 mg PO DAILY [facility] Last Admin: 06/15/16 10:03 Dose: 40 mg Glipizide (Glucotrol -) 5 mg PO ACBK [facility] Last Admin: 06/15/16 06:43 Dose: 5 mg Guaifenesin (Robitussin Dm -) 10 ml PO Q6H PRN Last Admin: 06/14/16 17:19 Dose: 10 ml Ceftriaxone Sodium (Rocephin 1gm Ivpb (Pre-Docked)) 50 mls @ 100 mls/hr IVPB DAILY [facility] Last Admin: 06/15/16 10:06 Dose: 100 mls/hr Insulin Aspart (Novolog Vial Sliding Scale -) 1 vial SQ TIDAC [facility] PRN Reason: Protocol Last Admin: 06/15/16 06:43 Dose: 2 units Lisinopril (Prinivil) 5 mg PO DAILY [facility] Last Admin: 06/15/16 10:03 Dose: 5 mg Methylprednisolone Sodium Succinate (Solu-Medrol -) 40 mg IVPB Q8H-IV [facility] Last Admin: 06/15/16 10:04 Dose: 40 mg Pantoprazole Sodium (Protonix -) 40 mg PO DAILY [facility] Last Admin: 06/15/16 10:04 Dose: 40 mg Polyethylene Glycol (Miralax (For Daily Use) -) 17 gm PO DAILY [facility] Last Admin: 06/15/16 10:04 Dose: 17 grams Sitagliptin Phosphate (Januvia -) 50 mg PO ACBK [facility] Last Admin: 06/15/16 06:43 Dose: 50 mg Spironolactone (Aldactone -) 25 mg PO DAILY [facility] Last Admin: 06/15/16 10:03 Dose: 25 mg Zolpidem Tartrate (Ambien -) 5 mg PO HS PRN PRN Reason: INSOMNIA Last Admin: 06/14/16 22:11 Dose: 5 mg - Objective Vital Signs: Vital Signs Temperature 98.4 F 06/15/16 02:27 Pulse Rate 88 06/15/16 10:03 Respiratory Rate 20 06/15/16 06:00 Blood Pressure 129/74 06/15/16 06:00 O2 Sat by Pulse Oximetry (%) 96 06/14/16 21:00 Constitutional: Yes: No Distress, Calm, Obese Eyes: Yes: WNL, Conjunctiva Clear, EOM Intact, PERRL HENT: Yes: WNL, Atraumatic, Normocephalic Neck: Yes: WNL, Supple, Trachea Midline Cardiovascular: Yes: Pulse Irregular, S1, S2. No: Regular Rate and Rhythm, Bradycardia, Tachycardia, Bruit, JVD, Gallop, Murmur, Rub, S3, S4, Varicosities Respiratory: Yes: Regular, Diminished, On Nasal O2, Rhonchi, SOB, Wheezes. No: Rales Gastrointestinal: Yes: WNL, Normal Bowel Sounds, Soft. No: Distention, Tenderness Musculoskeletal: Yes: WNL Extremities: Yes: WNL Edema: No Peripheral Pulses WNL: Yes Peripheral Pulses: Left Doralis Pedis: 2+, Right Dorsalis Pedis: 2+ Integumentary: Yes: WNL Neurological: Yes: Alert, Oriented Psychiatric: Yes: Alert, Oriented Labs: CBC, BMP 06/14/16 05:45 06/14/16 05:45 INR, PTT INR 1.22 (0.82-1.09) H 06/13/16 16:31 - ....Imaging Chest X-ray: Report Reviewed, Image Reviewed EKG: Report Reviewed, Image Reviewed Other: Report Reviewed, Image Reviewed (tele-AFib, Vpaced, HR controlled) Assessment/Plan 70 year old woman with a history of HTN, HLD, DM II, CAD reported prior [place]'s x3 , last cardiac cath 12/2015 ([place]) showed non-obstructive CAD (Left Main: 30% ; LAD prox 30%, mid 30%, distal 30%; LCs mid 30%; om1 40%; rcX Dominant vessel, mid 30%; LVEF 30%; peripheral vessel disease including left external iliac 80% stenosis), Chronic systolic CHF with severe LV systolic dysfunction s/p Satya Sci ICD 2006, AFib previously on coumadin stopped after ICH (cerebral aneursym s/p clipping), COPD, prior etoh abuse, bipolar admitted from [place] with c/o cough, sob , chest tightness. Chest pain-atypical, likely secondary to bronchitis, unlikely acs -recent cardiac cath as above, non-obs CAD -1st trop 0.12 trended down to 0.05 -cont ASA, Plavix (for PAD), Coreg, Lipitor -on further review and consideration of above data and recent cardiac cath showing mild non-obstructive disease and in light of bronchitis with associated chest pain being the most likely diagnosis, additional ischemic work up does not appear necessary on this admission -cont medical management as above for CAD -treat for bronchitis and monitor for improvement in symptoms -cont tele monitoring for now SOB-likely bronchitis, appears overall euvolemic -known chronic systolic chf and severe LV systolic dysfunction -cont Lasix 40mg po daily -cont Coreg, Lisinopril, Spironolactone, Lasix afib-hr controlled -cont digoxin and coreg -cont ASA and Plavix (for PAD) -not on full AC as per prior reports due to history of ICH and cerebral aneurysm , in addition she is on ASA and Plavix for other conditions, would not start full AC at this point -cont tele monitoring for now
[2016-06-15] MEDS: guaiFENesin/D-METHORPHAN HB 10 ML UNIT-DOSE CUPS PO PRN ×2 (13:30→21:49)
[2016-06-15] MEDS: ZOLPIDEM TARTRATE 5 MG TABLET PO PRN (21:34)
[2016-06-15] MEDS: ATORVASTATIN CA 20 MG TABLET (FP) PO SCH (21:34)
[2016-06-15] MEDS: ACETAMINOPHEN 325 MG TABLET (FP) PO PRN (21:49)
[2016-06-16] MEDS: methylPREDNISolone NA SUCC 40 MG/1 ML VIAL IVPB SCH ×3 (01:08→18:40)
[2016-06-16] MEDS: ALBUTEROL SO4 2.5/IPRATROPIUM 0.5 INH SOL 3 ML VIAL.NEB. NEB SCH ×6 (03:00→22:30)
[2016-06-16] MEDS: sitaGLIPtin PHOSPHATE 50 MG TABLET PO SCH (06:27)
[2016-06-16] MEDS: INSULIN SLIDING SCALE (NOVOLOG) 1 VIAL SQ SCH ×3 (06:27→18:40)
[2016-06-16] MEDS: glipiZIDE 5 MG TABLET (FP) PO SCH (06:27)
--- NOTE | 2016-06-16 08:25 | PN ---
Progress Note (short form) - Note Progress Note: SUBJECTIVE: Patient seen and examined. Chart reviewed. Ambulatory on the floor. Mood is labile today. As such denies chest pain. Still coughing. OBJECTIVE: Vital Signs 06/16/16 06/16/16 06/16/16 02:00 05:52 06:00 Temperature 97.7 F 97.8 F Pulse Rate 68 68 Respiratory 18 18 Rate Blood Pressure 141/73 138/75 O2 Sat by Pulse 99 Oximetry (%) Intake & Output 06/15/16 06/16/16 06/16/16 23:59 07:59 15:59 Intake Total 260 210 Output Total 800 Balance 260 -590 Weight 102.24 kg Intake: IV 10 10 saline lock 10 10 Oral 250 200 Output: Urine 800 Straight Cath 800 Other: Voiding Method Toilet Toilet Bowel Movement No No Weight Measurement Method Standing Scale Active Medications Acetaminophen (Tylenol -) 650 mg PO Q6H PRN PRN Reason: FEVER OR PAIN Last Admin: 06/15/16 21:49 Dose: 650 mg Albuterol/Ipratropium (Duoneb -) 1 amp NEB Q4H [facility] Last Admin: 06/16/16 06:20 Dose: 1 amp Aspirin (Asa -) 81 mg PO DAILY [facility] Last Admin: 06/15/16 10:05 Dose: 81 mg Atorvastatin Calcium (Lipitor -) 20 mg PO HS [facility] Last Admin: 06/15/16 21:34 Dose: 20 mg Benzocaine/Menthol (Cepacol Lozenge -) 1 each MM Q4H PRN PRN Reason: SORE THROAT Carvedilol (Coreg -) 12.5 mg PO BID [facility] Last Admin: 06/15/16 21:34 Dose: 12.5 mg Clopidogrel Bisulfate (Plavix -) 75 mg PO DAILY [facility] Last Admin: 06/15/16 10:03 Dose: 75 mg Colchicine (Colcrys -) 0.6 mg PO DAILY [facility] Last Admin: 06/15/16 10:04 Dose: 0.6 mg Digoxin (Lanoxin -) 0.125 mg PO DAILY [facility] Last Admin: 06/15/16 10:03 Dose: 0.125 mg Divalproex Sodium (Depakote -) 500 mg PO BID [facility] Last Admin: 06/15/16 21:34 Dose: 500 mg Docusate Sodium (Colace -) 100 mg PO BID [facility] Last Admin: 06/15/16 21:34 Dose: 100 mg Escitalopram Oxalate (Lexapro -) 20 mg PO DAILY [facility] Last Admin: 06/15/16 10:03 Dose: 20 mg Furosemide (Lasix -) 40 mg PO DAILY [facility] Last Admin: 06/15/16 10:03 Dose: 40 mg Glipizide (Glucotrol -) 5 mg PO ACBK [facility] Last Admin: 06/16/16 06:27 Dose: 5 mg Guaifenesin (Robitussin Dm -) 10 ml PO Q6H PRN Last Admin: 06/15/16 21:49 Dose: 10 ml Ceftriaxone Sodium (Rocephin 1gm Ivpb (Pre-Docked)) 50 mls @ 100 mls/hr IVPB DAILY [facility] Last Admin: 06/15/16 10:06 Dose: 100 mls/hr Insulin Aspart (Novolog Vial Sliding Scale -) 1 vial SQ TIDAC [facility] PRN Reason: Protocol Last Admin: 06/16/16 06:27 Dose: 6 units Lisinopril (Prinivil) 5 mg PO DAILY [facility] Last Admin: 06/15/16 10:03 Dose: 5 mg Methylprednisolone Sodium Succinate (Solu-Medrol -) 40 mg IVPB Q8H-IV [facility] Last Admin: 06/16/16 01:08 Dose: 40 mg Pantoprazole Sodium (Protonix -) 40 mg PO DAILY [facility] Last Admin: 06/15/16 10:04 Dose: 40 mg Polyethylene Glycol (Miralax (For Daily Use) -) 17 gm PO DAILY [facility] Last Admin: 06/15/16 10:04 Dose: 17 grams Sitagliptin Phosphate (Januvia -) 50 mg PO ACBK [facility] Last Admin: 06/16/16 06:27 Dose: 50 mg Spironolactone (Aldactone -) 25 mg PO DAILY [facility] Last Admin: 06/15/16 10:03 Dose: 25 mg Zolpidem Tartrate (Ambien -) 5 mg PO HS PRN PRN Reason: INSOMNIA Last Admin: 06/15/16 21:34 Dose: 5 mg CBC, BMP 06/14/16 05:45 06/14/16 05:45 Laboratory Results - last 24 hr 06/15/16 06/15/16 06/16/16 12:01 17:16 06:22 POC Glucometer 178 217 263 Microbiology 06/13/16 16:25 Blood Culture - Preliminary Blood - Peripheral Venous NO GROWTH OBTAINED AFTER 48 HOURS, INCUBATION TO CONTINUE FOR 3 DAYS. 06/13/16 16:22 Blood Culture - Preliminary Blood - Peripheral Venous NO GROWTH OBTAINED AFTER 48 HOURS, INCUBATION TO CONTINUE FOR 3 DAYS. PHYSICAL EXAMINATION: Constitutional: Yes: No Distress. HEENT: Left eye conjunctival redness. Limbus clear. Cardiovascular: Yes: Pulse Irregular Respiratory: Yes: Diminished, Bilateral Diffused Rhonchi Gastrointestinal: Yes: Normal Bowel Sounds, Soft, Abdomen, Obese. No: Distention, Tenderness Edema: No ASSESSMENT & PLAN: - Still short of breath. - Continue antibiotics. - On Solumedrol-- continue current dose. - Nebs as needed. - DVT prophylaxis-- Lovenox. - Patient not on AC due to h/o alcoholic abuse, pt is now in [facility] [place] , but tells me she does not want to go there. - Cepacol for sore throat. - Follow up labs. - Check Depakote level. - Blood sugars readings noted. - Add basal Insulin. - Can D/C Telemetry. - Discussed with Dr. Owen also. - Will follow. Documentation prepared by Ling Foster, acting as a biomedical equipment technician for Madelaine Collier MD.
[2016-06-16] MEDS: BENZOCAINE/MENTH/CETYLPYRD CL 1 EACH LOZENGE MM PRN ×3 (10:03→18:45)
[2016-06-16] MEDS: CEFTRIAXONE 50 ML IVPB SCH (10:16)
[2016-06-16] MEDS: ASPIRIN 81 MG CHEWABLE TABLETS PO SCH (10:17)
[2016-06-16] MEDS: LISINOPRIL 5 MG TABLET (FP) PO SCH (10:17)
[2016-06-16] MEDS: PANTOPRAZOLE 40 MG TABLET (FP) PO SCH (10:17)
[2016-06-16] MEDS: ESCITALOPRAM OXALATE 20 MG TABLET (FP) PO SCH (10:17)
[2016-06-16] MEDS: SPIRONOLACTONE 25 MG TABLET (FP) PO SCH (10:17)
[2016-06-16] MEDS: CARVEDILOL 12.5 MG TABLET (FP) PO SCH ×2 (10:17→21:37)
[2016-06-16] MEDS: CLOPIDOGREL BISULFATE 75 MG TABLET (FP) PO SCH (10:17)
[2016-06-16] MEDS: DIGOXIN 0.125 MG TABLET (FP) PO SCH (10:17)
[2016-06-16] MEDS: FUROSEMIDE 40 MG TABLET (FP) PO SCH (10:17)
[2016-06-16] MEDS: COLCHICINE 0.6 MG TABLET (FP) PO SCH (10:18)
[2016-06-16] MEDS: POLYETHYLENE GLYCOL 3350 119 GM BTL PO SCH (10:18)
[2016-06-16] MEDS: DOCUSATE SODIUM 100 MG CAPSULE (FP) PO SCH ×2 (10:18→21:37)
[2016-06-16] MEDS: DIVALPROEX SODIUM 500 MG TABLET E.C. PO SCH ×2 (10:20→21:37)
[2016-06-16] MEDS ORDERED: PT OWN MED DRAWER 7, Y5N ONE ×2 (10:20→21:34)
--- NOTE | 2016-06-16 11:21 | PN ---
Progress Note, Physician History of Present Illness: seen and examined today in nad. no overnight events. no new complaints. still coughing, sore throat. - Current Medication List Current Medications: Active Medications Acetaminophen (Tylenol -) 650 mg PO Q6H PRN PRN Reason: FEVER OR PAIN Last Admin: 06/15/16 21:49 Dose: 650 mg Albuterol/Ipratropium (Duoneb -) 1 amp NEB Q4H [facility] Last Admin: 06/16/16 06:20 Dose: 1 amp Aspirin (Asa -) 81 mg PO DAILY [facility] Last Admin: 06/16/16 10:17 Dose: 81 mg Atorvastatin Calcium (Lipitor -) 20 mg PO HS [facility] Last Admin: 06/15/16 21:34 Dose: 20 mg Benzocaine/Menthol (Cepacol Lozenge -) 1 each MM Q4H PRN PRN Reason: SORE THROAT Last Admin: 06/16/16 10:03 Dose: 1 each Carvedilol (Coreg -) 12.5 mg PO BID [facility] Last Admin: 06/16/16 10:17 Dose: 12.5 mg Clopidogrel Bisulfate (Plavix -) 75 mg PO DAILY [facility] Last Admin: 06/16/16 10:17 Dose: 75 mg Colchicine (Colcrys -) 0.6 mg PO DAILY [facility] Last Admin: 06/16/16 10:18 Dose: 0.6 mg Digoxin (Lanoxin -) 0.125 mg PO DAILY [facility] Last Admin: 06/16/16 10:17 Dose: 0.125 mg Divalproex Sodium (Depakote -) 500 mg PO BID [facility] Last Admin: 06/16/16 10:20 Dose: 500 mg Docusate Sodium (Colace -) 100 mg PO BID [facility] Last Admin: 06/16/16 10:18 Dose: 100 mg Escitalopram Oxalate (Lexapro -) 20 mg PO DAILY [facility] Last Admin: 06/16/16 10:17 Dose: 20 mg Furosemide (Lasix -) 40 mg PO DAILY [facility] Last Admin: 06/16/16 10:17 Dose: 40 mg Glipizide (Glucotrol -) 5 mg PO ACBK [facility] Last Admin: 06/16/16 06:27 Dose: 5 mg Guaifenesin (Robitussin Dm -) 10 ml PO Q6H PRN Last Admin: 06/15/16 21:49 Dose: 10 ml Ceftriaxone Sodium (Rocephin 1gm Ivpb (Pre-Docked)) 50 mls @ 100 mls/hr IVPB DAILY [facility] Last Admin: 06/16/16 10:16 Dose: 100 mls/hr Insulin Aspart (Novolog Vial Sliding Scale -) 1 vial SQ TIDAC [facility] PRN Reason: Protocol Last Admin: 06/16/16 06:27 Dose: 6 units Insulin Detemir (Levemir Vial) 8 units SQ HS [facility] Lisinopril (Prinivil) 5 mg PO DAILY [facility] Last Admin: 06/16/16 10:17 Dose: 5 mg Methylprednisolone Sodium Succinate (Solu-Medrol -) 40 mg IVPB Q8H-IV [facility] Last Admin: 06/16/16 10:17 Dose: 40 mg Pantoprazole Sodium (Protonix -) 40 mg PO DAILY [facility] Last Admin: 06/16/16 10:17 Dose: 40 mg Polyethylene Glycol (Miralax (For Daily Use) -) 17 gm PO DAILY [facility] Last Admin: 06/16/16 10:18 Dose: 17 grams Sitagliptin Phosphate (Januvia -) 50 mg PO ACBK [facility] Last Admin: 06/16/16 06:27 Dose: 50 mg Spironolactone (Aldactone -) 25 mg PO DAILY [facility] Last Admin: 06/16/16 10:17 Dose: 25 mg Zolpidem Tartrate (Ambien -) 5 mg PO HS PRN PRN Reason: INSOMNIA Last Admin: 06/15/16 21:34 Dose: 5 mg - Objective Vital Signs: Vital Signs Temperature 97.8 F 06/16/16 06:00 Pulse Rate 92 H 06/16/16 10:17 Respiratory Rate 18 06/16/16 06:00 Blood Pressure 138/75 06/16/16 06:00 O2 Sat by Pulse Oximetry (%) 99 06/16/16 05:52 Constitutional: Yes: No Distress, Calm, Obese Eyes: Yes: WNL, Conjunctiva Clear, EOM Intact, PERRL HENT: Yes: WNL, Atraumatic, Normocephalic Neck: Yes: WNL, Supple, Trachea Midline Cardiovascular: Yes: Pulse Irregular, S1, S2. No: Bradycardia, Tachycardia, Bruit, JVD, Gallop, Murmur, Rub, S3, S4, Varicosities Respiratory: Yes: Regular, Diminished, On Nasal O2, Rhonchi, Wheezes. No: Rales , SOB Gastrointestinal: Yes: WNL, Normal Bowel Sounds, Soft. No: Distention, Tenderness Musculoskeletal: Yes: WNL Extremities: Yes: WNL Edema: No Peripheral Pulses WNL: Yes Peripheral Pulses: Left Doralis Pedis: 2+, Right Dorsalis Pedis: 2+ Integumentary: Yes: WNL Neurological: Yes: Alert, Oriented Psychiatric: Yes: Alert, Oriented Labs: CBC, BMP 06/14/16 05:45 06/14/16 05:45 INR, PTT INR 1.22 (0.82-1.09) H 06/13/16 16:31 - ....Imaging Chest X-ray: Report Reviewed, Image Reviewed EKG: Report Reviewed, Image Reviewed Other: Report Reviewed, Image Reviewed (tele-AFib, HR controlled, Vpaced) Assessment/Plan 70 year old woman with a history of HTN, HLD, DM II, CAD reported prior [place]'s x3 , last cardiac cath 12/2015 ([place]) showed non-obstructive CAD (Left Main: 30% ; LAD prox 30%, mid 30%, distal 30%; LCs mid 30%; om1 40%; rcX Dominant vessel, mid 30%; LVEF 30%; peripheral vessel disease including left external iliac 80% stenosis), Chronic systolic CHF with severe LV systolic dysfunction s/p Satya Sci ICD 2006, AFib previously on coumadin stopped after ICH (cerebral aneursym s/p clipping), COPD, prior etoh abuse, bipolar admitted from [place] with c/o cough, sob , chest tightness. Chest pain-atypical, likely secondary to bronchitis, unlikely acs -recent cardiac cath as above, non-obs CAD -1st trop 0.12 trended down to 0.05 -cont ASA, Plavix (for PAD), Coreg, Lipitor -on further review and consideration of above data and recent cardiac cath showing mild non-obstructive disease and in light of bronchitis with associated chest pain being the most likely diagnosis, additional ischemic work up does not appear necessary on this admission -cont medical management as above for CAD -treat for bronchitis and monitor for improvement in symptoms -ok to dc tele, pt has not had any arrhythmias concerning for ischemia since admission -outpatient follow up SOB-likely bronchitis, appears overall euvolemic -known chronic systolic chf and severe LV systolic dysfunction -cont Lasix 40mg po daily -cont Coreg, Lisinopril, Spironolactone, Lasix afib-hr controlled -cont digoxin and coreg -cont ASA and Plavix (for PAD) -not on full AC as per prior reports due to history of ICH and cerebral aneurysm , in addition she is on ASA and Plavix for other conditions, would not start full AC at this point -ok to dc tele
[2016-06-16] MEDS: ACETAMINOPHEN 325 MG TABLET (FP) PO PRN ×2 (14:07→18:45)
[2016-06-16] MEDS ORDERED: INSULIN (NOVOLOG) ASPART 100 UNITS/ML 10ML VIAL ONE (18:20)
[2016-06-16] MEDS: guaiFENesin/D-METHORPHAN HB 10 ML UNIT-DOSE CUPS PO PRN (18:45)
[2016-06-16] MEDS: ZOLPIDEM TARTRATE 5 MG TABLET PO PRN (21:37)
[2016-06-16] MEDS: ATORVASTATIN CA 20 MG TABLET (FP) PO SCH (21:37)
[2016-06-16] MEDS: INSULIN DETEMIR 100 UNITS/ML MDV SQ SCH (21:38)
[2016-06-17] MEDS: methylPREDNISolone NA SUCC 40 MG/1 ML VIAL IVPB SCH ×2 (01:05→09:53)
[2016-06-17] MEDS: ALBUTEROL SO4 2.5/IPRATROPIUM 0.5 INH SOL 3 ML VIAL.NEB. NEB SCH ×6 (02:00→21:35)
[2016-06-17] MEDS: guaiFENesin/D-METHORPHAN HB 10 ML UNIT-DOSE CUPS PO PRN ×2 (05:45→19:48)
[2016-06-17] MEDS: BENZOCAINE/MENTH/CETYLPYRD CL 1 EACH LOZENGE MM PRN (05:45)
[2016-06-17] MEDS: sitaGLIPtin PHOSPHATE 50 MG TABLET PO SCH (06:32)
[2016-06-17] MEDS: INSULIN SLIDING SCALE (NOVOLOG) 1 VIAL SQ SCH ×3 (06:32→17:18)
[2016-06-17] MEDS: glipiZIDE 5 MG TABLET (FP) PO SCH (06:32)
[2016-06-17 07:17] LABS: BASOPHIL 0.2 % (0-2.0); MCH 27.7 pg (25.7-33.7); MCHC 32.9 g/dl (32.0-36.0); MEAN PLT VOLUME 12.2 fl (7.5-11.1); NEUTROPHILS 87.2 % (42.8-82.8); PLATELET COUNT 132 K/MM3 (134-434); RDW 18.9 % (11.6-15.6)
[2016-06-17 07:51] LABS: ALBUMIN 3.3 g/dl (3.4-5.0); CALCIUM 8.8 mg/dL (8.5-10.1)
[2016-06-17 07:56] LABS: BILIRUBIN,TOTAL 0.6 mg/dL (0.2-1.0); TOT PROT 7.4 g/dl (6.4-8.2)
[2016-06-17] MEDS ORDERED: PT OWN MED DRAWER 7, Y5N ONE ×2 (08:18→21:22)
[2016-06-17] MEDS: LISINOPRIL 5 MG TABLET (FP) PO SCH (09:53)
[2016-06-17] MEDS: COLCHICINE 0.6 MG TABLET (FP) PO SCH (09:53)
[2016-06-17] MEDS: DOCUSATE SODIUM 100 MG CAPSULE (FP) PO SCH ×2 (09:53→21:24)
[2016-06-17] MEDS: FUROSEMIDE 40 MG TABLET (FP) PO SCH (09:53)
[2016-06-17] MEDS: DIVALPROEX SODIUM 500 MG TABLET E.C. PO SCH ×2 (09:53→21:24)
[2016-06-17] MEDS: CLOPIDOGREL BISULFATE 75 MG TABLET (FP) PO SCH (09:53)
[2016-06-17] MEDS: CEFTRIAXONE 50 ML IVPB SCH (09:53)
[2016-06-17] MEDS: DIGOXIN 0.125 MG TABLET (FP) PO SCH (09:54)
[2016-06-17] MEDS: ASPIRIN 81 MG CHEWABLE TABLETS PO SCH (09:54)
[2016-06-17] MEDS: ESCITALOPRAM OXALATE 20 MG TABLET (FP) PO SCH (09:54)
[2016-06-17] MEDS: PANTOPRAZOLE 40 MG TABLET (FP) PO SCH (09:54)
[2016-06-17] MEDS: CARVEDILOL 12.5 MG TABLET (FP) PO SCH ×2 (09:55→21:24)
[2016-06-17] MEDS: POLYETHYLENE GLYCOL 3350 119 GM BTL PO SCH (09:55)
[2016-06-17] MEDS: SPIRONOLACTONE 25 MG TABLET (FP) PO SCH (09:55)
--- NOTE | 2016-06-17 10:10 | PN ---
Progress Note, Physician Chief Complaint: feeling better has cough denies chest pain - Current Medication List Current Medications: Active Medications Acetaminophen (Tylenol -) 650 mg PO Q6H PRN PRN Reason: FEVER OR PAIN Last Admin: 06/16/16 18:45 Dose: 650 mg Albuterol/Ipratropium (Duoneb -) 1 amp NEB Q4H [facility] Last Admin: 06/17/16 06:35 Dose: 1 amp Aspirin (Asa -) 81 mg PO DAILY [facility] Last Admin: 06/17/16 09:54 Dose: 81 mg Atorvastatin Calcium (Lipitor -) 20 mg PO HS [facility] Last Admin: 06/16/16 21:37 Dose: 20 mg Benzocaine/Menthol (Cepacol Lozenge -) 1 each MM Q4H PRN PRN Reason: SORE THROAT Last Admin: 06/17/16 05:45 Dose: 1 each Carvedilol (Coreg -) 12.5 mg PO BID [facility] Last Admin: 06/17/16 09:55 Dose: 12.5 mg Clopidogrel Bisulfate (Plavix -) 75 mg PO DAILY [facility] Last Admin: 06/17/16 09:53 Dose: 75 mg Colchicine (Colcrys -) 0.6 mg PO DAILY [facility] Last Admin: 06/17/16 09:53 Dose: 0.6 mg Digoxin (Lanoxin -) 0.125 mg PO DAILY [facility] Last Admin: 06/17/16 09:54 Dose: 0.125 mg Divalproex Sodium (Depakote -) 500 mg PO BID [facility] Last Admin: 06/17/16 09:53 Dose: 500 mg Docusate Sodium (Colace -) 100 mg PO BID [facility] Last Admin: 06/17/16 09:53 Dose: 100 mg Escitalopram Oxalate (Lexapro -) 20 mg PO DAILY [facility] Last Admin: 06/17/16 09:54 Dose: 20 mg Furosemide (Lasix -) 40 mg PO DAILY [facility] Last Admin: 06/17/16 09:53 Dose: 40 mg Glipizide (Glucotrol -) 5 mg PO ACBK [facility] Last Admin: 06/17/16 06:32 Dose: 5 mg Guaifenesin (Robitussin Dm -) 10 ml PO Q4H PRN PRN Reason: COUGH Ceftriaxone Sodium (Rocephin 1gm Ivpb (Pre-Docked)) 50 mls @ 100 mls/hr IVPB DAILY [facility] Last Admin: 06/17/16 09:53 Dose: 100 mls/hr Insulin Aspart (Novolog Vial Sliding Scale -) 1 vial SQ TIDAC [facility] PRN Reason: Protocol Last Admin: 06/17/16 06:32 Dose: 4 units Insulin Detemir (Levemir Vial) 8 units SQ HS [facility] Last Admin: 06/16/16 21:38 Dose: 8 units Lisinopril (Prinivil) 5 mg PO DAILY [facility] Last Admin: 06/17/16 09:53 Dose: 5 mg Methylprednisolone Sodium Succinate (Solu-Medrol -) 40 mg IVPB Q12H [facility] Pantoprazole Sodium (Protonix -) 40 mg PO DAILY [facility] Last Admin: 06/17/16 09:54 Dose: 40 mg Polyethylene Glycol (Miralax (For Daily Use) -) 17 gm PO DAILY [facility] Last Admin: 06/17/16 09:55 Dose: 17 grams Sitagliptin Phosphate (Januvia -) 50 mg PO ACBK [facility] Last Admin: 06/17/16 06:32 Dose: 50 mg Spironolactone (Aldactone -) 25 mg PO DAILY [facility] Last Admin: 06/17/16 09:55 Dose: 25 mg Zolpidem Tartrate (Ambien -) 5 mg PO HS PRN PRN Reason: INSOMNIA Last Admin: 06/16/16 21:37 Dose: 5 mg - Objective Vital Signs: Vital Signs Temperature 98 F 06/17/16 07:52 Pulse Rate 85 06/17/16 09:54 Respiratory Rate 20 06/17/16 07:52 Blood Pressure 146/80 06/17/16 07:52 O2 Sat by Pulse Oximetry (%) 99 06/16/16 21:00 Constitutional: Yes: No Distress, Calm Cardiovascular: Yes: Pulse Irregular Respiratory: Yes: Cough, Rhonchi (decreased) Gastrointestinal: Yes: Normal Bowel Sounds, Soft, Abdomen, Obese. No: Distention, Tenderness Edema: No Labs: CBC, BMP 06/17/16 05:35 06/17/16 05:35 INR, PTT INR 1.22 (0.82-1.09) H 06/13/16 16:31 Problem List - Problems (1) COPD exacerbation Code(s): J44.1 - CHRONIC OBSTRUCTIVE PULMONARY DISEASE W (ACUTE) EXACERBATION (2) Chest pain Code(s): R07.9 - CHEST PAIN, UNSPECIFIED Qualifiers: Chest pain type: unspecified Qualified Code(s): R07.9 - Chest pain, unspecified (3) NSTEMI (non-ST elevated myocardial infarction) Code(s): I21.4 - NON-ST ELEVATION (NSTEMI) MYOCARDIAL INFARCTION (4) Atrial fibrillation Code(s): I48.91 - UNSPECIFIED ATRIAL FIBRILLATION Qualifiers: Atrial fibrillation type: chronic Qualified Code(s): I48.2 - Chronic atrial fibrillation Assessment/Plan PLAN -- cardiac enzymes negative -- on Ceftriaxone -- on Solumedrol--taper dose -- Nebs as needed -- start inhaled corticosteroids -- PT eval -- DVT prophylaxis-- Lovenox -- Pt not on AC due to h/o alcoholic abuse, pt is now in [employer] [facility] care [place] , but tells me she does not want to go there
[2016-06-17] MEDS: BUDESONIDE/FORMETEROL FUMARATE 160/4.5 mcg INHALER IH SCH ×2 (11:56→21:25)
--- NOTE | 2016-06-17 14:45 | PN ---
Progress Note, Physician Chief Complaint: Pt is anxious, and says she does not want to return to [facility],. Denies chest pain or dyspnea. History of Present Illness: The patient is a 70 year old black female, with a significant past medical history of cerebral aneurysm s/p bleed s/p repair (06/2015), HLD, HTN, DM, CAD s/ p MIs, diastolic CHF, pacemaker, Afib on asa and plavix, who presents to the emergency department from [facility] with SOB and cough for 2 weeks. She reports having tightness and soreness in her chest whenever she coughs. She denies any chest pain when she does not cough. She reports having decreased appetite. Patient also notes having chills and being weak since being symptomatic. She reports having a neb treatment with no significant improvement at her OR. She denies recent fevers, headache or dizziness. She denies recent nausea, vomit, diarrhea or constipation. She denies recent dysuria, frequency, urgency or hematuria. +sick contacts at [facility] Allergies: NKA Social history: Former Smoker; ETOH abuse. PCP: CARDIO: - Current Medication List Current Medications: Active Medications Acetaminophen (Tylenol -) 650 mg PO Q6H PRN PRN Reason: FEVER OR PAIN Last Admin: 06/16/16 18:45 Dose: 650 mg Albuterol/Ipratropium (Duoneb -) 1 amp NEB Q4H [facility] Last Admin: 06/17/16 13:25 Dose: 1 amp Aspirin (Asa -) 81 mg PO DAILY [facility] Last Admin: 06/17/16 09:54 Dose: 81 mg Atorvastatin Calcium (Lipitor -) 20 mg PO HS [facility] Last Admin: 06/16/16 21:37 Dose: 20 mg Benzocaine/Menthol (Cepacol Lozenge -) 1 each MM Q4H PRN PRN Reason: SORE THROAT Last Admin: 06/17/16 05:45 Dose: 1 each Budesonide/Formoterol Fumarate (Symbicort 160/4.5mcg -) 2 puff IH BID [facility] Last Admin: 06/17/16 11:56 Dose: 2 puff Carvedilol (Coreg -) 12.5 mg PO BID [facility] Last Admin: 06/17/16 09:55 Dose: 12.5 mg Clopidogrel Bisulfate (Plavix -) 75 mg PO DAILY [facility] Last Admin: 06/17/16 09:53 Dose: 75 mg Colchicine (Colcrys -) 0.6 mg PO DAILY [facility] Last Admin: 06/17/16 09:53 Dose: 0.6 mg Digoxin (Lanoxin -) 0.125 mg PO DAILY [facility] Last Admin: 06/17/16 09:54 Dose: 0.125 mg Divalproex Sodium (Depakote -) 500 mg PO BID [facility] Last Admin: 06/17/16 09:53 Dose: 500 mg Docusate Sodium (Colace -) 100 mg PO BID [facility] Last Admin: 06/17/16 09:53 Dose: 100 mg Escitalopram Oxalate (Lexapro -) 20 mg PO DAILY [facility] Last Admin: 06/17/16 09:54 Dose: 20 mg Furosemide (Lasix -) 40 mg PO DAILY [facility] Last Admin: 06/17/16 09:53 Dose: 40 mg Glipizide (Glucotrol -) 5 mg PO ACBK [facility] Last Admin: 06/17/16 06:32 Dose: 5 mg Guaifenesin (Robitussin Dm -) 10 ml PO Q4H PRN PRN Reason: COUGH Ceftriaxone Sodium (Rocephin 1gm Ivpb (Pre-Docked)) 50 mls @ 100 mls/hr IVPB DAILY [facility] Last Admin: 06/17/16 09:53 Dose: 100 mls/hr Insulin Aspart (Novolog Vial Sliding Scale -) 1 vial SQ TIDAC [facility] PRN Reason: Protocol Last Admin: 06/17/16 11:44 Dose: 4 units Insulin Detemir (Levemir Vial) 8 units SQ HS [facility] Last Admin: 06/16/16 21:38 Dose: 8 units Lisinopril (Prinivil) 5 mg PO DAILY [facility] Last Admin: 06/17/16 09:53 Dose: 5 mg Methylprednisolone Sodium Succinate (Solu-Medrol -) 40 mg IVPB BID [facility] Pantoprazole Sodium (Protonix -) 40 mg PO DAILY [facility] Last Admin: 06/17/16 09:54 Dose: 40 mg Polyethylene Glycol (Miralax (For Daily Use) -) 17 gm PO DAILY [facility] Last Admin: 06/17/16 09:55 Dose: 17 grams Saliva Substitute (Mouthkote Solution -) 1 applic MM DAILY [facility] Sitagliptin Phosphate (Januvia -) 50 mg PO ACBK [facility] Last Admin: 06/17/16 06:32 Dose: 50 mg Spironolactone (Aldactone -) 25 mg PO DAILY [facility] Last Admin: 06/17/16 09:55 Dose: 25 mg Zolpidem Tartrate (Ambien -) 5 mg PO HS PRN PRN Reason: INSOMNIA Last Admin: 06/16/16 21:37 Dose: 5 mg - Objective Vital Signs: Vital Signs Temperature 98 F 06/17/16 07:52 Pulse Rate 85 06/17/16 09:54 Respiratory Rate 20 06/17/16 08:00 Blood Pressure 146/80 06/17/16 07:52 O2 Sat by Pulse Oximetry (%) 97 06/17/16 08:00 Constitutional: Yes: Anxious, Mild Distress Eyes: Yes: WNL HENT: Yes: WNL Neck: Yes: WNL Cardiovascular: Yes: Pulse Irregular Respiratory: Yes: Regular Gastrointestinal: Yes: Soft ...Rectal Exam: Yes: Deferred Genitourinary: No: Anuria Breast(s): Yes: WNL Musculoskeletal: Yes: WNL Extremities: Yes: Cool Edema: Yes Edema: LLE: Trace, RLE: Trace Peripheral Pulses WNL: Yes Integumentary: Yes: WNL Neurological: Yes: Alert, Oriented Psychiatric: Yes: Other (anxiety) Labs: CBC, BMP 06/17/16 05:35 06/17/16 05:35 INR, PTT INR 1.22 (0.82-1.09) H 06/13/16 16:31 Problem List - Problems (1) COPD exacerbation Assessment/Plan: bronchodilators, steroids, and O2 per park activities coordinator. Code(s): J44.1 - CHRONIC OBSTRUCTIVE PULMONARY DISEASE W (ACUTE) EXACERBATION (2) Chest pain Assessment/Plan: non-obstructive CAD on most recent coronary angiogram. Continue anti-ischemic/CHF medications. On ASA and clopidogrel. Code(s): R07.9 - CHEST PAIN, UNSPECIFIED Qualifiers: Chest pain type: unspecified Qualified Code(s): R07.9 - Chest pain, unspecified (3) Renal dysfunction Assessment/Plan: avoid dehydration (would discontinue furosemide); f/u BUN/Cr. Code(s): N28.9 - DISORDER OF KIDNEY AND URETER, UNSPECIFIED (4) Subconjunctival hemorrhage of left eye Code(s): H11.32 - CONJUNCTIVAL HEMORRHAGE, LEFT EYE (5) AA (alcohol abuse) Code(s): F10.10 - ALCOHOL ABUSE, UNCOMPLICATED (6) Atrial fibrillation Assessment/Plan: On carvedilol for AF HR control (as well as for severe systolic LV dysfunction and HTN). On ASA and clopidogrel (CAD and PAD); off systemic anticoagulant due to hx cerebral bleed. Code(s): I48.91 - UNSPECIFIED ATRIAL FIBRILLATION Qualifiers: Atrial fibrillation type: chronic Qualified Code(s): I48.2 - Chronic atrial fibrillation (7) Bipolar I disorder with depression Code(s): F31.9 - BIPOLAR DISORDER, UNSPECIFIED (8) Acute on chronic systolic (congestive) heart failure Assessment/Plan: Continue Coreg, lisinopril, Aldactone. On digoxin; keep level 0.5-1.0 (presently 0.7) Would discontinue furosemide (no JVD; CXR without acute changes; rising BUN). F/u K+ (presently 4.8); pt is on ACEI and spironolactone. Code(s): I50.23 - ACUTE ON CHRONIC SYSTOLIC (CONGESTIVE) HEART FAILURE
[2016-06-17] MEDS: LYTES/YERBA SANTA 240 ML BOTTLE MM SCH (14:54)
[2016-06-17] MEDS: ACETAMINOPHEN 325 MG TABLET (FP) PO PRN (19:48)
[2016-06-17] MEDS: ATORVASTATIN CA 20 MG TABLET (FP) PO SCH (21:24)
[2016-06-17] MEDS: INSULIN DETEMIR 100 UNITS/ML MDV SQ SCH (21:24)
[2016-06-17] MEDS: ZOLPIDEM TARTRATE 5 MG TABLET PO PRN (21:24)
[2016-06-17] MEDS ORDERED: methylPREDNISolone NA SUCC 40 MG/1 ML VIAL IVPB SCH (22:00)
[2016-06-18] MEDS: ALBUTEROL SO4 2.5/IPRATROPIUM 0.5 INH SOL 3 ML VIAL.NEB. NEB SCH ×4 (02:30→13:30)
[2016-06-18] MEDS: INSULIN SLIDING SCALE (NOVOLOG) 1 VIAL SQ SCH ×3 (06:23→18:22)
[2016-06-18] MEDS: glipiZIDE 5 MG TABLET (FP) PO SCH (06:23)
[2016-06-18] MEDS: sitaGLIPtin PHOSPHATE 50 MG TABLET PO SCH (06:23)
[2016-06-18] MEDS: guaiFENesin/D-METHORPHAN HB 10 ML UNIT-DOSE CUPS PO PRN ×4 (06:42→21:09)
[2016-06-18] MEDS: LYTES/YERBA SANTA 240 ML BOTTLE MM SCH (10:31)
--- NOTE | 2016-06-18 11:18 | PN ---
Progress Note, Physician Chief Complaint: SOB today, has more cough denies chest pain - Current Medication List Current Medications: Active Medications Acetaminophen (Tylenol -) 650 mg PO Q6H PRN PRN Reason: FEVER OR PAIN Last Admin: 06/17/16 19:48 Dose: 650 mg Albuterol/Ipratropium (Duoneb -) 1 amp NEB Q4H [facility] Last Admin: 06/18/16 09:25 Dose: 1 amp Aspirin (Asa -) 81 mg PO DAILY [facility] Last Admin: 06/17/16 09:54 Dose: 81 mg Atorvastatin Calcium (Lipitor -) 20 mg PO HS [facility] Last Admin: 06/17/16 21:24 Dose: 20 mg Benzocaine/Menthol (Cepacol Lozenge -) 1 each MM Q4H PRN PRN Reason: SORE THROAT Last Admin: 06/17/16 05:45 Dose: 1 each Budesonide/Formoterol Fumarate (Symbicort 160/4.5mcg -) 2 puff IH BID [facility] Last Admin: 06/17/16 21:25 Dose: 2 puff Carvedilol (Coreg -) 12.5 mg PO BID [facility] Last Admin: 06/17/16 21:24 Dose: 12.5 mg Clopidogrel Bisulfate (Plavix -) 75 mg PO DAILY [facility] Last Admin: 06/17/16 09:53 Dose: 75 mg Colchicine (Colcrys -) 0.6 mg PO DAILY [facility] Last Admin: 06/17/16 09:53 Dose: 0.6 mg Digoxin (Lanoxin -) 0.125 mg PO DAILY [facility] Last Admin: 06/17/16 09:54 Dose: 0.125 mg Divalproex Sodium (Depakote -) 500 mg PO BID [facility] Last Admin: 06/17/16 21:24 Dose: 500 mg Docusate Sodium (Colace -) 100 mg PO BID [facility] Last Admin: 06/17/16 21:24 Dose: 100 mg Escitalopram Oxalate (Lexapro -) 20 mg PO DAILY [facility] Last Admin: 06/17/16 09:54 Dose: 20 mg Furosemide (Lasix -) 40 mg PO DAILY [facility] Last Admin: 06/17/16 09:53 Dose: 40 mg Glipizide (Glucotrol -) 5 mg PO ACBK [facility] Last Admin: 06/18/16 06:23 Dose: 5 mg Guaifenesin (Robitussin Dm -) 10 ml PO Q4H PRN PRN Reason: COUGH Last Admin: 06/18/16 06:42 Dose: 10 ml Ceftriaxone Sodium (Rocephin 1gm Ivpb (Pre-Docked)) 50 mls @ 100 mls/hr IVPB DAILY [facility] Last Admin: 06/17/16 09:53 Dose: 100 mls/hr Insulin Aspart (Novolog Vial Sliding Scale -) 1 vial SQ TIDAC [facility] PRN Reason: Protocol Last Admin: 06/18/16 06:23 Dose: 6 units Insulin Detemir (Levemir Vial) 8 units SQ HS [facility] Last Admin: 06/17/16 21:24 Dose: 8 units Lisinopril (Prinivil) 5 mg PO DAILY [facility] Last Admin: 06/17/16 09:53 Dose: 5 mg Pantoprazole Sodium (Protonix -) 40 mg PO DAILY [facility] Last Admin: 06/17/16 09:54 Dose: 40 mg Polyethylene Glycol (Miralax (For Daily Use) -) 17 gm PO DAILY [facility] Last Admin: 06/17/16 09:55 Dose: 17 grams Saliva Substitute (Mouthkote Solution -) 1 applic MM DAILY [facility] Last Admin: 06/17/16 14:54 Dose: 1 applic Sitagliptin Phosphate (Januvia -) 50 mg PO ACBK [facility] Last Admin: 06/18/16 06:23 Dose: 50 mg Spironolactone (Aldactone -) 25 mg PO DAILY [facility] Last Admin: 06/17/16 09:55 Dose: 25 mg Zolpidem Tartrate (Ambien -) 5 mg PO HS PRN PRN Reason: INSOMNIA Last Admin: 06/17/16 21:24 Dose: 5 mg - Objective Vital Signs: Vital Signs Temperature 98.4 F 06/18/16 06:00 Pulse Rate 77 06/18/16 08:58 Respiratory Rate 20 06/18/16 08:58 Blood Pressure 138/87 06/18/16 08:58 O2 Sat by Pulse Oximetry (%) 100 06/18/16 09:05 Constitutional: Yes: No Distress, Calm Cardiovascular: Yes: Pulse Irregular Respiratory: Yes: Diminished, Rhonchi Gastrointestinal: Yes: Normal Bowel Sounds, Soft, Abdomen, Obese. No: Distention, Tenderness Edema: No Labs: CBC, BMP 06/17/16 05:35 06/17/16 05:35 INR, PTT INR 1.22 (0.82-1.09) H 06/13/16 16:31 Problem List - Problems (1) COPD exacerbation Code(s): J44.1 - CHRONIC OBSTRUCTIVE PULMONARY DISEASE W (ACUTE) EXACERBATION (2) Chest pain Code(s): R07.9 - CHEST PAIN, UNSPECIFIED Qualifiers: Chest pain type: unspecified Qualified Code(s): R07.9 - Chest pain, unspecified (3) NSTEMI (non-ST elevated myocardial infarction) Code(s): I21.4 - NON-ST ELEVATION (NSTEMI) MYOCARDIAL INFARCTION (4) Atrial fibrillation Code(s): I48.91 - UNSPECIFIED ATRIAL FIBRILLATION Qualifiers: Atrial fibrillation type: chronic Qualified Code(s): I48.2 - Chronic atrial fibrillation Assessment/Plan PLAN -- cardiac enzymes negative -- on Ceftriaxone -- on Solumedrol--increase today -- Nebs as needed -- on inhaled corticosteroids -- PT eval -- DVT prophylaxis-- Lovenox -- Pulmonary evaluation -- Pt not on AC due to h/o alcoholic abuse, pt is now in prison care [place] , but tells me she does not want to go there
[2016-06-18] MEDS: COLCHICINE 0.6 MG TABLET (FP) PO SCH (11:26)
[2016-06-18] MEDS: DIGOXIN 0.125 MG TABLET (FP) PO SCH (11:27)
[2016-06-18] MEDS: ESCITALOPRAM OXALATE 20 MG TABLET (FP) PO SCH (11:27)
[2016-06-18] MEDS: PANTOPRAZOLE 40 MG TABLET (FP) PO SCH (11:27)
[2016-06-18] MEDS: CARVEDILOL 12.5 MG TABLET (FP) PO SCH ×2 (11:27→21:07)
[2016-06-18] MEDS: FUROSEMIDE 40 MG TABLET (FP) PO SCH (11:27)
[2016-06-18] MEDS: CLOPIDOGREL BISULFATE 75 MG TABLET (FP) PO SCH (11:27)
[2016-06-18] MEDS: ASPIRIN 81 MG CHEWABLE TABLETS PO SCH (11:28)
[2016-06-18] MEDS: SPIRONOLACTONE 25 MG TABLET (FP) PO SCH (11:28)
[2016-06-18] MEDS: DOCUSATE SODIUM 100 MG CAPSULE (FP) PO SCH ×2 (11:28→21:07)
[2016-06-18] MEDS: POLYETHYLENE GLYCOL 3350 119 GM BTL PO SCH (11:29)
[2016-06-18] MEDS: LISINOPRIL 5 MG TABLET (FP) PO SCH (11:29)
[2016-06-18] MEDS: BUDESONIDE/FORMETEROL FUMARATE 160/4.5 mcg INHALER IH SCH ×2 (11:30→21:09)
[2016-06-18] MEDS: ACETAMINOPHEN 325 MG TABLET (FP) PO PRN ×2 (11:40→21:05)
[2016-06-18] MEDS ORDERED: PT OWN MED DRAWER 7, Y5N ONE (12:30)
[2016-06-18] MEDS: DIVALPROEX SODIUM 500 MG TABLET E.C. PO SCH ×2 (12:33→21:15)
[2016-06-18] MEDS: CEFTRIAXONE 50 ML IVPB SCH (12:34)
[2016-06-18] MEDS: methylPREDNISolone NA SUCC 125 MG/2 ML VIAL IVPB SCH ×2 (12:47→18:22)
[2016-06-18] MEDS ORDERED: INSULIN (NOVOLOG) ASPART 100 UNITS/ML 10ML VIAL ONE ×2 (13:03→18:16)
--- NOTE | 2016-06-18 14:52 | PN ---
Progress Note (short form) - Note Progress Note: PULMONARY CONSULTATION DICTATED 06/18/16 IMP COPD EXACERBATION CHF SEVERE LV DYSFUNCTION S/P ICD ASHD S/P CA X 3 AFIB DM HTN HLD H/O SMOKING H/O NUT PROCESS HELPER BLEED H/O ETOH BIPOLAR PLAN IV STEROIDS INHALED BRONCHODILATORS NASAL O2 LASIX ANTIBIOTICS CHEST CT PFTS 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 - Problems (1) Acute on chronic systolic (congestive) heart failure Code(s): I50.23 - ACUTE ON CHRONIC SYSTOLIC (CONGESTIVE) HEART FAILURE (2) COPD exacerbation Code(s): J44.1 - CHRONIC OBSTRUCTIVE PULMONARY DISEASE W (ACUTE) EXACERBATION (3) Chest pain Code(s): R07.9 - CHEST PAIN, UNSPECIFIED Qualifiers: Chest pain type: unspecified Qualified Code(s): R07.9 - Chest pain, unspecified (4) Renal dysfunction Code(s): N28.9 - DISORDER OF KIDNEY AND URETER, UNSPECIFIED (5) AA (alcohol abuse) Code(s): F10.10 - ALCOHOL ABUSE, UNCOMPLICATED (6) Atrial fibrillation Code(s): I48.91 - UNSPECIFIED ATRIAL FIBRILLATION Qualifiers: Atrial fibrillation type: chronic Qualified Code(s): I48.2 - Chronic atrial fibrillation (7) Brain aneurysm Code(s): I67.1 - CEREBRAL ANEURYSM, NONRUPTURED (9) Atrial fibrillation with normal ventricular rate Code(s): I48.91 - UNSPECIFIED ATRIAL FIBRILLATION (10) Atypical chest pain Code(s): R07.89 - OTHER CHEST PAIN (11) Bipolar I disorder with depression Code(s): F31.9 - BIPOLAR DISORDER, UNSPECIFIED (12) Arteriosclerosis of coronary artery in patient with history of myocardial infarction Code(s): I25.10 - ATHSCL HEART DISEASE OF [place] CORONARY ARTERY W/O ANG PCTRS I25.2 - OLD MYOCARDIAL INFARCTION (13) Chronic bronchitis Code(s): J42 - UNSPECIFIED CHRONIC BRONCHITIS Qualifiers: Chronic bronchitis type: unspecified Qualified Code(s): J42 - Unspecified chronic bronchitis (14) HLD (hyperlipidemia) Code(s): E78.5 - HYPERLIPIDEMIA, UNSPECIFIED (15) HTN (hypertension) Code(s): I10 - ESSENTIAL (PRIMARY) HYPERTENSION Qualifiers: Hypertension type: essential hypertension Qualified Code(s): I10 - Essential (primary) hypertension (16) Neurogenic bladder Code(s): N31.9 - NEUROMUSCULAR DYSFUNCTION OF BLADDER, UNSPECIFIED (17) Obesity Code(s): E66.9 - OBESITY, UNSPECIFIED Qualifiers: Obesity type: due to excess calories Obesity severity: non-morbid Qualified Code(s): E66.09 - Other obesity due to excess calories (18) COPD (chronic obstructive pulmonary disease) Code(s): J44.9 - CHRONIC OBSTRUCTIVE PULMONARY DISEASE, UNSPECIFIED
--- NOTE | 2016-06-18 14:56 | PN ---
Progress Note, Physician Chief Complaint: Pt denies chest pain or dyspnea. History of Present Illness: The patient is a 70 year old black female, with a significant past medical history of cerebral aneurysm s/p bleed s/p repair (06/2015), HLD, HTN, DM, CAD s/ p MIs, diastolic CHF, pacemaker, Afib on asa and plavix, who presents to the emergency department from [facility] with SOB and cough for 2 weeks. She reports having tightness and soreness in her chest whenever she coughs. She denies any chest pain when she does not cough. She reports having decreased appetite. Patient also notes having chills and being weak since being symptomatic. She reports having a neb treatment with no significant improvement at her [place]. She denies recent fevers, headache or dizziness. She denies recent nausea, vomit, diarrhea or constipation. She denies recent dysuria, frequency, urgency or hematuria. +sick contacts at [facility] Allergies: NKA Social history: Former Smoker; ETOH abuse. PCP: CARDIO: - Current Medication List Current Medications: Active Medications Acetaminophen (Tylenol -) 650 mg PO Q6H PRN PRN Reason: FEVER OR PAIN Last Admin: 06/18/16 11:40 Dose: 650 mg Albuterol Sulfate (Ventolin 0.083% Nebulizer Soln -) 1 amp NEB Q4H PRN PRN Reason: SHORT OF BREATH/WHEEZING Aspirin (Asa -) 81 mg PO DAILY [facility] Last Admin: 06/18/16 11:28 Dose: 81 mg Atorvastatin Calcium (Lipitor -) 20 mg PO HS [facility] Last Admin: 06/17/16 21:24 Dose: 20 mg Benzocaine/Menthol (Cepacol Lozenge -) 1 each MM Q4H PRN PRN Reason: SORE THROAT Last Admin: 06/17/16 05:45 Dose: 1 each Budesonide/Formoterol Fumarate (Symbicort 160/4.5mcg -) 2 puff IH BID [facility] Last Admin: 06/18/16 11:30 Dose: 2 puff Carvedilol (Coreg -) 12.5 mg PO BID [facility] Last Admin: 06/18/16 11:27 Dose: 12.5 mg Clopidogrel Bisulfate (Plavix -) 75 mg PO DAILY [facility] Last Admin: 06/18/16 11:27 Dose: 75 mg Colchicine (Colcrys -) 0.6 mg PO DAILY [facility] Last Admin: 06/18/16 11:26 Dose: 0.6 mg Digoxin (Lanoxin -) 0.125 mg PO DAILY [facility] Last Admin: 06/18/16 11:27 Dose: 0.125 mg Divalproex Sodium (Depakote -) 500 mg PO BID [facility] Last Admin: 06/18/16 12:33 Dose: 500 mg Docusate Sodium (Colace -) 100 mg PO BID [facility] Last Admin: 06/18/16 11:28 Dose: 100 mg Escitalopram Oxalate (Lexapro -) 20 mg PO DAILY [facility] Last Admin: 06/18/16 11:27 Dose: 20 mg Furosemide (Lasix -) 40 mg PO DAILY [facility] Last Admin: 06/18/16 11:27 Dose: 40 mg Glipizide (Glucotrol -) 5 mg PO ACBK [facility] Last Admin: 06/18/16 06:23 Dose: 5 mg Guaifenesin (Robitussin Dm -) 10 ml PO Q4H PRN PRN Reason: COUGH Last Admin: 06/18/16 11:41 Dose: 10 ml Ceftriaxone Sodium (Rocephin 1gm Ivpb (Pre-Docked)) 50 mls @ 100 mls/hr IVPB DAILY [facility] Last Admin: 06/18/16 12:34 Dose: 100 mls/hr Insulin Aspart (Novolog Vial Sliding Scale -) 1 vial SQ TIDAC [facility] PRN Reason: Protocol Last Admin: 06/18/16 13:05 Dose: 2 units Insulin Detemir (Levemir Vial) 8 units SQ HS [facility] Last Admin: 06/17/16 21:24 Dose: 8 units Lisinopril (Prinivil) 5 mg PO DAILY [facility] Last Admin: 06/18/16 11:29 Dose: 5 mg Methylprednisolone Sodium Succinate (Solu-Medrol -) 60 mg IVPB Q8H-IV [facility] Last Admin: 06/18/16 12:47 Dose: 60 mg Pantoprazole Sodium (Protonix -) 40 mg PO DAILY [facility] Last Admin: 06/18/16 11:27 Dose: 40 mg Polyethylene Glycol (Miralax (For Daily Use) -) 17 gm PO DAILY [facility] Last Admin: 06/18/16 11:29 Dose: 17 grams Saliva Substitute (Mouthkote Solution -) 1 applic MM DAILY [facility] Last Admin: 06/17/16 14:54 Dose: 1 applic Sitagliptin Phosphate (Januvia -) 50 mg PO ACBK [facility] Last Admin: 06/18/16 06:23 Dose: 50 mg Spironolactone (Aldactone -) 25 mg PO DAILY [facility] Last Admin: 06/18/16 11:28 Dose: 25 mg Tiotropium [place] (Spiriva -) 18 puff IH DAILY [facility] Zolpidem Tartrate (Ambien -) 5 mg PO HS PRN PRN Reason: INSOMNIA Last Admin: 06/17/16 21:24 Dose: 5 mg - Objective Vital Signs: Vital Signs Temperature 98.4 F 06/18/16 06:00 Pulse Rate 94 H 06/18/16 11:27 Respiratory Rate 20 06/18/16 08:58 Blood Pressure 138/87 06/18/16 08:58 O2 Sat by Pulse Oximetry (%) 100 06/18/16 09:05 Constitutional: Yes: Calm Eyes: Yes: WNL HENT: Yes: WNL Neck: Yes: WNL Cardiovascular: Yes: Pulse Irregular Respiratory: Yes: Regular Gastrointestinal: Yes: Soft ...Rectal Exam: Yes: Deferred Breast(s): Yes: WNL Musculoskeletal: Yes: WNL Extremities: Yes: WNL Edema: No Integumentary: Yes: WNL Neurological: Yes: Alert, Oriented Psychiatric: Yes: Alert, Oriented Labs: CBC, BMP 06/17/16 05:35 06/17/16 05:35 INR, PTT INR 1.22 (0.82-1.09) H 06/13/16 16:31 Problem List - Problems (1) COPD exacerbation Assessment/Plan: bronchodilators, steroids, and O2 per senior telecommunications specialist. Code(s): J44.1 - CHRONIC OBSTRUCTIVE PULMONARY DISEASE W (ACUTE) EXACERBATION (2) Chest pain Assessment/Plan: non-obstructive CAD on most recent coronary angiogram. Continue anti-ischemic/CHF medications. On ASA and clopidogrel. Code(s): R07.9 - CHEST PAIN, UNSPECIFIED Qualifiers: Chest pain type: unspecified Qualified Code(s): R07.9 - Chest pain, unspecified (3) Renal dysfunction Assessment/Plan: avoid dehydration (would discontinue furosemide); f/u BUN/Cr. Code(s): N28.9 - DISORDER OF KIDNEY AND URETER, UNSPECIFIED (4) Subconjunctival hemorrhage of left eye Code(s): H11.32 - CONJUNCTIVAL HEMORRHAGE, LEFT EYE (5) AA (alcohol abuse) Code(s): F10.10 - ALCOHOL ABUSE, UNCOMPLICATED (6) Atrial fibrillation Assessment/Plan: On carvedilol for AF HR control (as well as for severe systolic LV dysfunction and HTN). On ASA and clopidogrel (CAD and PAD); off systemic anticoagulant due to hx cerebral bleed. Code(s): I48.91 - UNSPECIFIED ATRIAL FIBRILLATION Qualifiers: Atrial fibrillation type: chronic Qualified Code(s): I48.2 - Chronic atrial fibrillation (7) Bipolar I disorder with depression Code(s): F31.9 - BIPOLAR DISORDER, UNSPECIFIED (8) Acute on chronic systolic (congestive) heart failure Assessment/Plan: Continue Coreg, lisinopril, Aldactone. On digoxin; keep level 0.5-1.0 (presently 0.7) Would discontinue furosemide (no JVD; CXR without acute changes; rising BUN). F/u K+ (presently 4.8); pt is on ACEI and spironolactone. Code(s): I50.23 - ACUTE ON CHRONIC SYSTOLIC (CONGESTIVE) HEART FAILURE
--- NOTE | 2016-06-18 17:37 | CONS ---
DATE OF CONSULTATION: 06/18/2016 PULMONARY CONSULTATION REFERRING PHYSICIAN: Shannon Vaughn M.D. HISTORY OF PRESENT ILLNESS: The patient is a 70-year-old black female past medical history of ASHD status post [place] x3, type 2 diabetes mellitus, hyperlipidemia, hypertension, atrial fibrillation, CHF with severe LV dysfunction status post ICD 2017, history of intracerebral hemorrhage status post clipping, COPD, history of ETOH, bipolar, hypertension, hyperlipidemia, admitted to [facility] from [facility] secondary to increasing shortness of breath, cough, and chest congestion. Patient denied any fevers, did complain of some chills. Not any nausea, vomiting, or diaphoreses. Patient was admitted with the above. On admission, she was felt to have most likely COPD exacerbation, probable CHF. She was evaluated by Dr. Mejia for cardiology consultation. Patient was placed on steroids, inhaled bronchodilators with initial improvement, though today she started developed increasing cough, chest congestion, and dyspnea on exertion. She denies any hemoptysis. She has a history of tobacco use for many years, quit in 2006. There is no history of occupational exposure to chemicals or fumes. There is no history of DVT or PE in the past. PAST MEDICAL HISTORY: Again includes ASHD status post [place] x3, CHF status post ICD, type 2 diabetes mellitus, COPD, hyperlipidemia, hypertension as well as atrial fibrillation and chronic kidney disease. REVIEW OF SYSTEMS: Positive for cough. Positive bronchospasm. Positive shortness of breath. No fever. No chills. No hemoptysis. No abdominal pain. Positive lower extremity edema. CURRENT MEDICATIONS: Include Symbicort 160/4.5, Solu-Medrol 60 q.8, lisinopril, Tylenol, ceftriaxone, Depakote, lexapro, colchicine, Robitussin DM, Ambien, albuterol, DuoNeb, Coreg, Lanoxin, Colace, Miralax, Januvia, Lipitor, Levemir, Lasix, Aldactone, aspirin, Plavix ,and Protonix and Glucotrol. PHYSICAL EXAMINATION: General: The patient is a well-developed, well-nourished female, awake, alert, currently in no acute distress. Vital signs: She is currently afebrile. Blood pressure is 138/87, respiratory rate 20, O2 saturation is 100% on nasal O2, and heart rate is 94 and regular. HEENT: Head is normocephalic, atraumatic. Neck: Supple. Heart: Regular. S1, S2. Chest: Decreased bilateral rhonchi and wheezes. Abdomen: Soft. Bowel sounds positive. Extremities: Bilateral lower extremity edema. LABORATORY: BUN 35, creatinine 1.0. WBC 8, hemoglobin 11.6, hematocrit 35.2 with platelet count of 132,000. BNP 3262. Chest x-ray reveals no pulmonary vascular congestion. IMPRESSION: Dyspnea, chest congestion most likely multiple factors: 1. Chronic obstructive pulmonary disease exacerbation. 2. Congestive heart failure. 3. Atherosclerotic heart disease status post myocardial infarction x3. 4. History of severe left ventricular dysfunction status post implantable cardioverter defibrillator. 5. Atrial fibrillation. 6. Diabetes mellitus. 7. Hypertension. 8. History of tobacco use. PLAN: Continue IV steroids, inhaled bronchodilators, supplemental O2. Obtain CT scan of the chest. Continue Lasix. Daily weights. PFTs as outpatient. DIMITRY STUART M.D. [id number] MTDD
[2016-06-18] MEDS: INSULIN DETEMIR 100 UNITS/ML MDV SQ SCH (21:08)
[2016-06-18] MEDS: ATORVASTATIN CA 20 MG TABLET (FP) PO SCH (21:09)
[2016-06-18] MEDS: ZOLPIDEM TARTRATE 5 MG TABLET PO PRN (21:29)
[2016-06-19] MEDS: guaiFENesin/D-METHORPHAN HB 10 ML UNIT-DOSE CUPS PO PRN ×5 (01:32→21:22)
[2016-06-19] MEDS: COLCHICINE 0.6 MG TABLET (FP) PO SCH ×2 (01:48→10:51)
[2016-06-19] MEDS: methylPREDNISolone NA SUCC 125 MG/2 ML VIAL IVPB SCH ×3 (01:57→18:17)
[2016-06-19] MEDS: glipiZIDE 5 MG TABLET (FP) PO SCH (06:46)
[2016-06-19] MEDS: INSULIN SLIDING SCALE (NOVOLOG) 1 VIAL SQ SCH ×3 (06:46→17:08)
[2016-06-19] MEDS: sitaGLIPtin PHOSPHATE 50 MG TABLET PO SCH (06:46)
[2016-06-19] MEDS: ACETAMINOPHEN 325 MG TABLET (FP) PO PRN ×3 (06:47→21:22)
[2016-06-19] MEDS ORDERED: PT OWN MED DRAWER 7, Y5N ONE ×4 (10:44→21:21)
[2016-06-19] MEDS: BUDESONIDE/FORMETEROL FUMARATE 160/4.5 mcg INHALER IH SCH ×2 (10:47→21:13)
[2016-06-19] MEDS: methylPREDNISolone NA SUCC 40 MG/1 ML VIAL IVPB SCH (10:47)
[2016-06-19] MEDS: ASPIRIN 81 MG CHEWABLE TABLETS PO SCH (10:48)
[2016-06-19] MEDS: DOCUSATE SODIUM 100 MG CAPSULE (FP) PO SCH ×2 (10:48→21:14)
[2016-06-19] MEDS: FUROSEMIDE 40 MG TABLET (FP) PO SCH (10:48)
[2016-06-19] MEDS: SPIRONOLACTONE 25 MG TABLET (FP) PO SCH (10:49)
[2016-06-19] MEDS: DIVALPROEX SODIUM 500 MG TABLET E.C. PO SCH ×2 (10:49→21:12)
[2016-06-19] MEDS: CARVEDILOL 12.5 MG TABLET (FP) PO SCH ×2 (10:49→21:12)
[2016-06-19] MEDS: CLOPIDOGREL BISULFATE 75 MG TABLET (FP) PO SCH (10:49)
[2016-06-19] MEDS: PANTOPRAZOLE 40 MG TABLET (FP) PO SCH (10:49)
[2016-06-19] MEDS: LISINOPRIL 5 MG TABLET (FP) PO SCH (10:49)
[2016-06-19] MEDS: ESCITALOPRAM OXALATE 20 MG TABLET (FP) PO SCH (10:49)
[2016-06-19] MEDS: TIOTROPIUM BROMIDE 18 MCG/INH (DEVICE W/ 30 CAPSULES) IH SCH (10:51)
[2016-06-19] MEDS: DIGOXIN 0.125 MG TABLET (FP) PO SCH (10:55)
[2016-06-19] MEDS: LYTES/YERBA SANTA 240 ML BOTTLE MM SCH (10:58)
[2016-06-19] MEDS: POLYETHYLENE GLYCOL 3350 119 GM BTL PO SCH (11:00)
[2016-06-19] MEDS ORDERED: INSULIN (NOVOLOG) ASPART 100 UNITS/ML 10ML VIAL ONE ×3 (11:20→17:14)
--- NOTE | 2016-06-19 12:06 | PN ---
Progress Note, Physician Chief Complaint: feeling better today Wheezing is less - Current Medication List Current Medications: Active Medications Acetaminophen (Tylenol -) 650 mg PO Q6H PRN PRN Reason: FEVER OR PAIN Last Admin: 06/19/16 06:47 Dose: 650 mg Albuterol Sulfate (Ventolin 0.083% Nebulizer Soln -) 1 amp NEB Q4H PRN PRN Reason: SHORT OF BREATH/WHEEZING Aspirin (Asa -) 81 mg PO DAILY [facility] Last Admin: 06/19/16 10:48 Dose: 81 mg Atorvastatin Calcium (Lipitor -) 20 mg PO HS [facility] Last Admin: 06/18/16 21:09 Dose: 20 mg Benzocaine/Menthol (Cepacol Lozenge -) 1 each MM Q4H PRN PRN Reason: SORE THROAT Last Admin: 06/17/16 05:45 Dose: 1 each Budesonide/Formoterol Fumarate (Symbicort 160/4.5mcg -) 2 puff IH BID [facility] Last Admin: 06/19/16 10:47 Dose: 2 puff Carvedilol (Coreg -) 12.5 mg PO BID [facility] Last Admin: 06/19/16 10:49 Dose: 12.5 mg Clopidogrel Bisulfate (Plavix -) 75 mg PO DAILY [facility] Last Admin: 06/19/16 10:49 Dose: 75 mg Colchicine (Colcrys -) 0.6 mg PO DAILY [facility] Last Admin: 06/19/16 10:51 Dose: Not Given Digoxin (Lanoxin -) 0.125 mg PO DAILY [facility] Last Admin: 06/19/16 10:55 Dose: 0.125 mg Divalproex Sodium (Depakote -) 500 mg PO BID [facility] Last Admin: 06/19/16 10:49 Dose: 500 mg Docusate Sodium (Colace -) 100 mg PO BID [facility] Last Admin: 06/19/16 10:48 Dose: 100 mg Escitalopram Oxalate (Lexapro -) 20 mg PO DAILY [facility] Last Admin: 06/19/16 10:49 Dose: 20 mg Furosemide (Lasix -) 40 mg PO DAILY [facility] Last Admin: 06/19/16 10:48 Dose: 40 mg Glipizide (Glucotrol -) 5 mg PO ACBK [facility] Last Admin: 06/19/16 06:46 Dose: 5 mg Guaifenesin (Robitussin Dm -) 10 ml PO Q4H PRN PRN Reason: COUGH Last Admin: 06/19/16 11:13 Dose: 10 ml Ceftriaxone Sodium (Rocephin 1gm Ivpb (Pre-Docked)) 50 mls @ 100 mls/hr IVPB DAILY [facility] Last Admin: 06/18/16 12:34 Dose: 100 mls/hr Insulin Aspart (Novolog Vial Sliding Scale -) 1 vial SQ TIDAC [facility] PRN Reason: Protocol Last Admin: 06/19/16 11:27 Dose: 4 units Insulin Detemir (Levemir Vial) 8 units SQ HS [facility] Last Admin: 06/18/16 21:08 Dose: 8 units Lisinopril (Prinivil) 5 mg PO DAILY [facility] Last Admin: 06/19/16 10:49 Dose: 5 mg Methylprednisolone Sodium Succinate (Solu-Medrol -) 60 mg IVPB Q8H-IV [facility] Last Admin: 06/19/16 10:47 Dose: 60 mg Pantoprazole Sodium (Protonix -) 40 mg PO DAILY [facility] Last Admin: 06/19/16 10:49 Dose: 40 mg Polyethylene Glycol (Miralax (For Daily Use) -) 17 gm PO DAILY [facility] Last Admin: 06/19/16 11:00 Dose: 17 grams Saliva Substitute (Mouthkote Solution -) 1 applic MM DAILY [facility] Last Admin: 06/19/16 10:58 Dose: 1 applic Sitagliptin Phosphate (Januvia -) 50 mg PO ACBK [facility] Last Admin: 06/19/16 06:46 Dose: 50 mg Spironolactone (Aldactone -) 25 mg PO DAILY [facility] Last Admin: 06/19/16 10:49 Dose: 25 mg Tiotropium [place] (Spiriva -) 18 puff IH DAILY [facility] Last Admin: 06/19/16 10:51 Dose: 18 inh Zolpidem Tartrate (Ambien -) 5 mg PO HS PRN PRN Reason: INSOMNIA Last Admin: 06/18/16 21:29 Dose: 5 mg - Objective Vital Signs: Vital Signs Temperature 98.8 F 06/19/16 10:39 Pulse Rate 67 06/19/16 10:55 Respiratory Rate 20 06/19/16 10:39 Blood Pressure 149/64 06/19/16 10:39 O2 Sat by Pulse Oximetry (%) 95 06/18/16 21:00 Constitutional: Yes: No Distress, Calm Cardiovascular: Yes: Pulse Irregular Respiratory: Yes: Diminished, Rhonchi (decreased) Gastrointestinal: Yes: Normal Bowel Sounds, Soft, Abdomen, Obese. No: Distention, Tenderness Edema: No Labs: CBC, BMP 06/17/16 05:35 06/17/16 05:35 INR, PTT INR 1.22 (0.82-1.09) H 06/13/16 16:31 Problem List - Problems (1) COPD exacerbation Code(s): J44.1 - CHRONIC OBSTRUCTIVE PULMONARY DISEASE W (ACUTE) EXACERBATION (2) Chest pain Code(s): R07.9 - CHEST PAIN, UNSPECIFIED Qualifiers: Chest pain type: unspecified Qualified Code(s): R07.9 - Chest pain, unspecified (3) NSTEMI (non-ST elevated myocardial infarction) Code(s): I21.4 - NON-ST ELEVATION (NSTEMI) MYOCARDIAL INFARCTION (4) Atrial fibrillation Code(s): I48.91 - UNSPECIFIED ATRIAL FIBRILLATION Qualifiers: Atrial fibrillation type: chronic Qualified Code(s): I48.2 - Chronic atrial fibrillation Assessment/Plan PLAN -- on Ceftriaxone -- on Solumedrol -- Nebs as needed -- on inhaled corticosteroids -- PT eval -- DVT prophylaxis-- Lovenox -- Pulmonary evaluation appreciated CT chest notedno infiltrates Incentive spirometry -- Pt not on AC due to h/o alcoholic abuse, pt is now in [facility] , but tells me she does not want to go there
--- NOTE | 2016-06-19 12:13 | PN ---
Progress Note (short form) - Note Progress Note: PULMONARY States breathing is much improved from yesterday but still short of breath with chest tightness. Last Vital Signs Temp Pulse Resp BP Pulse Ox 98.8 F 67 20 149/64 95 06/19/16 10:39 06/19/16 10:55 06/19/16 10:39 06/19/16 10:39 06/18/16 21:00 Gen: NAD at rest Heart: RRR Lung: bilateral expiratory wheezes, decreased air entry Abd: soft, nontender Ext: no edema CBC, BMP 06/17/16 05:35 06/17/16 05:35 Active Medications Acetaminophen (Tylenol -) 650 mg PO Q6H PRN PRN Reason: FEVER OR PAIN Last Admin: 06/19/16 06:47 Dose: 650 mg Albuterol Sulfate (Ventolin 0.083% Nebulizer Soln -) 1 amp NEB Q4H PRN PRN Reason: SHORT OF BREATH/WHEEZING Aspirin (Asa -) 81 mg PO DAILY [facility] Last Admin: 06/19/16 10:48 Dose: 81 mg Atorvastatin Calcium (Lipitor -) 20 mg PO HS [facility] Last Admin: 06/18/16 21:09 Dose: 20 mg Benzocaine/Menthol (Cepacol Lozenge -) 1 each MM Q4H PRN PRN Reason: SORE THROAT Last Admin: 06/17/16 05:45 Dose: 1 each Budesonide/Formoterol Fumarate (Symbicort 160/4.5mcg -) 2 puff IH BID [facility] Last Admin: 06/19/16 10:47 Dose: 2 puff Carvedilol (Coreg -) 12.5 mg PO BID [facility] Last Admin: 06/19/16 10:49 Dose: 12.5 mg Clopidogrel Bisulfate (Plavix -) 75 mg PO DAILY [facility] Last Admin: 06/19/16 10:49 Dose: 75 mg Colchicine (Colcrys -) 0.6 mg PO DAILY [facility] Last Admin: 06/19/16 10:51 Dose: Not Given Digoxin (Lanoxin -) 0.125 mg PO DAILY [facility] Last Admin: 06/19/16 10:55 Dose: 0.125 mg Divalproex Sodium (Depakote -) 500 mg PO BID [facility] Last Admin: 06/19/16 10:49 Dose: 500 mg Docusate Sodium (Colace -) 100 mg PO BID [facility] Last Admin: 06/19/16 10:48 Dose: 100 mg Escitalopram Oxalate (Lexapro -) 20 mg PO DAILY [facility] Last Admin: 06/19/16 10:49 Dose: 20 mg Furosemide (Lasix -) 40 mg PO DAILY [facility] Last Admin: 06/19/16 10:48 Dose: 40 mg Glipizide (Glucotrol -) 5 mg PO ACBK [facility] Last Admin: 06/19/16 06:46 Dose: 5 mg Guaifenesin (Robitussin Dm -) 10 ml PO Q4H PRN PRN Reason: COUGH Last Admin: 06/19/16 11:13 Dose: 10 ml Ceftriaxone Sodium (Rocephin 1gm Ivpb (Pre-Docked)) 50 mls @ 100 mls/hr IVPB DAILY [facility] Last Admin: 06/18/16 12:34 Dose: 100 mls/hr Insulin Aspart (Novolog Vial Sliding Scale -) 1 vial SQ TIDAC [facility] PRN Reason: Protocol Last Admin: 06/19/16 11:27 Dose: 4 units Insulin Detemir (Levemir Vial) 8 units SQ HS [facility] Last Admin: 06/18/16 21:08 Dose: 8 units Lisinopril (Prinivil) 5 mg PO DAILY [facility] Last Admin: 06/19/16 10:49 Dose: 5 mg Methylprednisolone Sodium Succinate (Solu-Medrol -) 60 mg IVPB Q8H-IV [facility] Last Admin: 06/19/16 10:47 Dose: 60 mg Pantoprazole Sodium (Protonix -) 40 mg PO DAILY [facility] Last Admin: 06/19/16 10:49 Dose: 40 mg Polyethylene Glycol (Miralax (For Daily Use) -) 17 gm PO DAILY [facility] Last Admin: 06/19/16 11:00 Dose: 17 grams Saliva Substitute (Mouthkote Solution -) 1 applic MM DAILY [facility] Last Admin: 06/19/16 10:58 Dose: 1 applic Sitagliptin Phosphate (Januvia -) 50 mg PO ACBK [facility] Last Admin: 06/19/16 06:46 Dose: 50 mg Spironolactone (Aldactone -) 25 mg PO DAILY [facility] Last Admin: 06/19/16 10:49 Dose: 25 mg Tiotropium [place] (Spiriva -) 18 puff IH DAILY [facility] Last Admin: 06/19/16 10:51 Dose: 18 inh Zolpidem Tartrate (Ambien -) 5 mg PO HS PRN PRN Reason: INSOMNIA Last Admin: 06/18/16 21:29 Dose: 5 mg A/P Acute COPD Exacerbation LV Systolic Dysfunction CAD s/p CABG Atrial Fibrillation HTN DM Hyperlipidemia - continue medrol at current dose, if continues to improve can taper in AM - inhaled bronchodilators standing and PRN - CT chest reviewed, small area of atelectasis but no infiltrates - can d/c antibiotics if cultures negative - O2 to keep SpO2 >90% - rate controlled - anticoagulation if no contraindications - DVT prophylaxis
[2016-06-19] MEDS: CEFTRIAXONE 50 ML IVPB SCH (12:17)
[2016-06-19] MEDS: ATORVASTATIN CA 20 MG TABLET (FP) PO SCH (21:13)
[2016-06-19] MEDS: INSULIN DETEMIR 100 UNITS/ML MDV SQ SCH (21:13)
[2016-06-19] MEDS: ZOLPIDEM TARTRATE 5 MG TABLET PO PRN (21:22)
[2016-06-20] MEDS: methylPREDNISolone NA SUCC 125 MG/2 ML VIAL IVPB SCH ×2 (02:29→10:21)
[2016-06-20] MEDS: sitaGLIPtin PHOSPHATE 50 MG TABLET PO SCH (06:33)
[2016-06-20] MEDS: glipiZIDE 5 MG TABLET (FP) PO SCH (06:33)
[2016-06-20] MEDS: INSULIN SLIDING SCALE (NOVOLOG) 1 VIAL SQ SCH ×3 (06:33→17:24)
[2016-06-20] MEDS: ACETAMINOPHEN 325 MG TABLET (FP) PO PRN ×2 (07:09→20:05)
[2016-06-20] MEDS: guaiFENesin/D-METHORPHAN HB 10 ML UNIT-DOSE CUPS PO PRN ×2 (07:09→21:49)
[2016-06-20] MEDS ORDERED: PT OWN MED DRAWER 7, Y5N ONE ×5 (09:40→22:41)
[2016-06-20] MEDS: BUDESONIDE/FORMETEROL FUMARATE 160/4.5 mcg INHALER IH SCH ×2 (09:43→21:30)
[2016-06-20] MEDS: TIOTROPIUM BROMIDE 18 MCG/INH (DEVICE W/ 30 CAPSULES) IH SCH ×2 (09:43→10:20)
[2016-06-20] MEDS: FUROSEMIDE 40 MG TABLET (FP) PO SCH (09:44)
[2016-06-20] MEDS: DOCUSATE SODIUM 100 MG CAPSULE (FP) PO SCH ×2 (09:44→21:29)
[2016-06-20] MEDS: COLCHICINE 0.6 MG TABLET (FP) PO SCH (09:44)
[2016-06-20] MEDS: LISINOPRIL 5 MG TABLET (FP) PO SCH (09:44)
[2016-06-20] MEDS: ASPIRIN 81 MG CHEWABLE TABLETS PO SCH (09:44)
[2016-06-20] MEDS: CLOPIDOGREL BISULFATE 75 MG TABLET (FP) PO SCH (09:44)
[2016-06-20] MEDS: CARVEDILOL 12.5 MG TABLET (FP) PO SCH ×2 (09:44→21:29)
[2016-06-20] MEDS: PANTOPRAZOLE 40 MG TABLET (FP) PO SCH (09:44)
[2016-06-20] MEDS: SPIRONOLACTONE 25 MG TABLET (FP) PO SCH (09:44)
[2016-06-20] MEDS: ESCITALOPRAM OXALATE 20 MG TABLET (FP) PO SCH (09:45)
[2016-06-20] MEDS: DIGOXIN 0.125 MG TABLET (FP) PO SCH (09:45)
[2016-06-20] MEDS: DIVALPROEX SODIUM 500 MG TABLET E.C. PO SCH ×2 (09:49→21:29)
--- NOTE | 2016-06-20 10:06 | PN ---
Progress Note (short form) - Note Progress Note: Subjective Patient seen and examined. Chart reviewed. Feels better. Mood is pleasant today. Denies cp. Still gets SOB. Does not want to go back to [facility] on [facility]. Objective Last Vital Signs Temp Pulse Resp BP Pulse Ox 98.2 F 72 20 139/62 99 06/20/16 09:35 06/20/16 09:35 06/20/16 09:35 06/20/16 09:35 06/19/16 21:00 Labs: CBC, BMP 06/17/16 05:35 06/17/16 05:35 Problem List - Problems (1) COPD exacerbation Code(s): J44.1 - CHRONIC OBSTRUCTIVE PULMONARY DISEASE W (ACUTE) EXACERBATION (2) Chest pain Code(s): R07.9 - CHEST PAIN, UNSPECIFIED Qualifiers: Chest pain type: unspecified Qualified Code(s): R07.9 - Chest pain, unspecified (3) NSTEMI (non-ST elevated myocardial infarction) Code(s): I21.4 - NON-ST ELEVATION (NSTEMI) MYOCARDIAL INFARCTION (4) Atrial fibrillation Code(s): I48.91 - UNSPECIFIED ATRIAL FIBRILLATION Qualifiers: Atrial fibrillation type: chronic Qualified Code(s): I48.2 - Chronic atrial fibrillation Physical Exam: Constitutional: Yes: No Distress, Calm Cardiovascular: Yes: Pulse Irregular Respiratory: Yes: Diminished, Rhonchi (decreased) Gastrointestinal: Yes: Normal Bowel Sounds, Soft, Abdomen, Obese. No: Distention, Tenderness Edema: No Assessment and Plan Continue steroids same dose Continue other meds Ambulate Will follow Discussed with casey saw operator also Documentation prepared by Ni [address], acting as a biomedical technician for Madelaine Collier MD.
[2016-06-20] MEDS: POLYETHYLENE GLYCOL 3350 119 GM BTL PO SCH (10:20)
[2016-06-20] MEDS: LYTES/YERBA SANTA 240 ML BOTTLE MM SCH (10:21)
[2016-06-20] MEDS: ALBUTEROL SO4 0.083% IH SOL 2.5 MG/3 ML VIAL.NEB. NEB PRN ×2 (11:11→21:43)
[2016-06-20] MEDS ORDERED: INSULIN (NOVOLOG) ASPART 100 UNITS/ML 10ML VIAL ONE (12:09)
--- NOTE | 2016-06-20 13:15 | PN ---
Teaching Attending Note Name of Resident: Lisbet Godwin ATTENDING PHYSICIAN STATEMENT I saw and evaluated the patient. I reviewed the resident's note and discussed the case with the resident. I agree with the resident's findings and plan as documented. PULMONARY ALERT,FEELING BETTER,LESS DYSPNEIC IMP COPD EXACERBATION IMPROVING CHF SEVERE LV DYSFUNCTION S/P ICD ASHD S/P AR X 3 AFIB DM HTN HLD H/O SMOKING H/O MEDICAL SCRIBE BLEED H/O ETOH BIPOLAR PLAN STEROID TAPER INHALED BRONCHODILATORS NASAL O2 LASIX ANTIBIOTICS PFTS 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 - Problems (1) Acute on chronic systolic (congestive) heart failure Code(s): I50.23 - ACUTE ON CHRONIC SYSTOLIC (CONGESTIVE) HEART FAILURE (2) COPD exacerbation Code(s): J44.1 - CHRONIC OBSTRUCTIVE PULMONARY DISEASE W (ACUTE) EXACERBATION (3) Chest pain Code(s): R07.9 - CHEST PAIN, UNSPECIFIED Qualifiers: Chest pain type: unspecified Qualified Code(s): R07.9 - Chest pain, unspecified (4) Renal dysfunction Code(s): N28.9 - DISORDER OF KIDNEY AND URETER, UNSPECIFIED (5) AA (alcohol abuse) Code(s): F10.10 - ALCOHOL ABUSE, UNCOMPLICATED (6) Atrial fibrillation Code(s): I48.91 - UNSPECIFIED ATRIAL FIBRILLATION Qualifiers: Atrial fibrillation type: chronic Qualified Code(s): I48.2 - Chronic atrial fibrillation (7) Brain aneurysm Code(s): I67.1 - CEREBRAL ANEURYSM, NONRUPTURED (9) Atrial fibrillation with normal ventricular rate Code(s): I48.91 - UNSPECIFIED ATRIAL FIBRILLATION (10) Atypical chest pain Code(s): R07.89 - OTHER CHEST PAIN (11) Bipolar I disorder with depression Code(s): F31.9 - BIPOLAR DISORDER, UNSPECIFIED (12) Arteriosclerosis of coronary artery in patient with history of myocardial infarction Code(s): I25.10 - ATHSCL HEART DISEASE OF [place] CORONARY ARTERY W/O ANG PCTRS I25.2 - OLD MYOCARDIAL INFARCTION (13) Chronic bronchitis Code(s): J42 - UNSPECIFIED CHRONIC BRONCHITIS Qualifiers: Chronic bronchitis type: unspecified Qualified Code(s): J42 - Unspecified chronic bronchitis (14) HLD (hyperlipidemia) Code(s): E78.5 - HYPERLIPIDEMIA, UNSPECIFIED (15) HTN (hypertension) Code(s): I10 - ESSENTIAL (PRIMARY) HYPERTENSION Qualifiers: Hypertension type: essential hypertension Qualified Code(s): I10 - Essential (primary) hypertension (16) Neurogenic bladder Code(s): N31.9 - NEUROMUSCULAR DYSFUNCTION OF [place], UNSPECIFIED (17) Obesity Code(s): E66.9 - OBESITY, UNSPECIFIED Qualifiers: Obesity type: due to excess calories Obesity severity: non-morbid Qualified Code(s): E66.09 - Other obesity due to excess calories (18) COPD (chronic obstructive pulmonary disease) Code(s): J44.9 - CHRONIC OBSTRUCTIVE PULMONARY DISEASE, UNSPECIFIED
--- NOTE | 2016-06-20 16:04 | PN ---
Physical Exam: SUBJECTIVE: Patient seen and examined Patient resting in bed nad. No acute events overnight. afebrile and hemodynamically stable. States she feels much better. ambulating down hallway without O2 and doesnt get SOB. Uses NC at night. states she has a cough and only gets sob when coughing. states she has trouble coughing up the sputum. Deneis chest pain, f/c, n/c, abd pain, diarrhea or constipation. OBJECTIVE: Vital Signs Period Temp Pulse Resp BP Sys/Bernard Pulse Ox Last 24 Hr 97.5 F-98.8 F 62-89 16-20 139-155/62-92 96-99 GENERAL: The patient is awake, alert, and fully oriented, in no acute distress. HEAD: Normal with no signs of trauma. EYES: PERRL, extraocular movements intact, sclera anicteric, conjunctiva clear. ENT: moist mucous membranes. NECK: supple. LUNGS: coarse breath sounds diffusely. wet cough. HEART: irregularly irregular, S1, S2 ABDOMEN: Soft, nontender, nondistended, normoactive bowel sounds EXTREMITIES: 2+ pulses, warm, well-perfused, no edema. NEUROLOGICAL: Cranial nerves II through XII grossly intact. Normal speech, gait not observed. PSYCH: Normal mood, normal affect. SKIN: Warm, dry Laboratory Results - last 24 hr 06/19/16 06/20/16 06/20/16 17:06 06:11 11:57 POC Glucometer 299 281 248 Active Medications Generic Name Dose Route Start Last Admin Trade Name Freq PRN Reason Stop Dose Admin Acetaminophen 650 mg 06/14/16 01:07 06/20/16 07:09 Tylenol - PO 650 mg Q6H PRN Administration FEVER OR PAIN Albuterol Sulfate 1 amp 06/18/16 14:53 06/20/16 11:11 Ventolin 0.083% Nebulizer Soln - NEB 1 amp Q4H PRN Administration SHORT OF BREATH/WHEEZING Aspirin 81 mg 06/14/16 10:00 06/20/16 09:44 Asa - PO 81 mg DAILY [facility] Administration Atorvastatin Calcium 20 mg 06/13/16 22:00 06/19/16 21:13 Lipitor - PO 20 mg HS OBIE Administration Benzocaine/Menthol 1 each 06/16/16 09:27 06/17/16 05:45 Cepacol Lozenge - MM 1 each Q4H PRN Administration SORE THROAT Budesonide/Formoterol Fumarate 2 puff 06/17/16 11:30 06/20/16 09:43 Symbicort 160/4.5mcg - IH 2 puff BID OBIE Administration Carvedilol 12.5 mg 06/13/16 22:00 06/20/16 09:44 Coreg - PO 12.5 mg BID OBIE Administration Clopidogrel Bisulfate 75 mg 06/14/16 10:00 06/20/16 09:44 Plavix - PO 75 mg DAILY OBIE Administration Colchicine 0.6 mg 06/14/16 10:00 06/20/16 09:44 Colcrys - PO 0.6 mg DAILY OBIE Administration Digoxin 0.125 mg 06/14/16 10:00 06/20/16 09:45 Lanoxin - PO 0.125 mg DAILY OBIE Administration Divalproex Sodium 500 mg 06/13/16 22:00 06/20/16 09:49 Depakote - PO 500 mg BID OBIE Administration Docusate Sodium 100 mg 06/13/16 22:00 06/20/16 09:44 Colace - PO 100 mg BID OBIE Administration Escitalopram Oxalate 20 mg 06/14/16 10:00 06/20/16 09:45 Lexapro - PO 20 mg DAILY OBIE Administration Furosemide 40 mg 06/14/16 10:00 06/20/16 09:44 Lasix - PO 40 mg DAILY OBIE Administration Glipizide 5 mg 06/14/16 07:00 06/20/16 06:33 Glucotrol - PO 5 mg ACBK [facility] Administration Guaifenesin 10 ml 06/17/16 10:07 06/20/16 07:09 Robitussin Dm - PO 10 ml Q4H PRN Administration COUGH Insulin Aspart 1 vial 06/14/16 07:00 06/20/16 11:59 Novolog Vial Sliding Scale - SQ 4 units TIDAC [facility] Administration Protocol Insulin Detemir 8 units 06/16/16 22:00 06/19/16 21:13 Levemir Vial SQ 8 units HS [facility]BIE Administration Lisinopril 5 mg 06/14/16 10:00 06/20/16 09:44 Prinivil PO 5 mg DAILY [facility]BIE Administration Methylprednisolone Sodium Succinate 40 mg 06/20/16 18:00 Solu-Medrol - IVPB Q8H-IV [facility] Pantoprazole Sodium 40 mg 06/14/16 10:00 06/20/16 09:44 Protonix - PO 40 mg DAILY [facility]BIE Administration Polyethylene Glycol 17 gm 06/14/16 10:30 06/20/16 10:20 Miralax (For Daily Use) - PO 17 grams DAILY [facility] Administration Saliva Substitute 1 applic 06/17/16 13:30 06/20/16 10:21 Mouthkote Solution - MM Not Given DAILY [facility] Sitagliptin Phosphate 50 mg 06/14/16 07:00 06/20/16 06:33 Januvia - PO 50 mg ACBK [facility] Administration Spironolactone 25 mg 06/14/16 10:00 06/20/16 09:44 Aldactone - PO 25 mg DAILY [facility]BI[facility] Administration Tiotropium [place] 18 puff 06/18/16 15:00 06/20/16 10:20 Spiriva - IH 1 inh DAILY [facility] Administration Zolpidem Tartrate 5 mg 06/13/16 21:47 06/19/16 21:22 Ambien - PO 5 mg HS PRN Administration INSOMNIA ASSESSMENT/PLAN: acute on chronic COPD exacebation -symptomatic improvement -CT chest enedelia cute process -NC O2 as needed -symbicort, spiriva, albuterol -taper medrol 60 BID -mucinex -abx notindicated -pre/post exercise O2 measurement before d/c systolic CHF -s/p ICD -stable Afib -continue plavix HTN -continue home meds HLD -continue home meds DM -tight glycemic control while on steroids Problem List - Problems (1) COPD (chronic obstructive pulmonary disease) Code(s): J44.9 - CHRONIC OBSTRUCTIVE PULMONARY DISEASE, UNSPECIFIED (2) COPD exacerbation Code(s): J44.1 - CHRONIC OBSTRUCTIVE PULMONARY DISEASE W (ACUTE) EXACERBATION (3) Atrial fibrillation Code(s): I48.91 - UNSPECIFIED ATRIAL FIBRILLATION Qualifiers: Atrial fibrillation type: chronic Qualified Code(s): I48.2 - Chronic atrial fibrillation (4) Brain aneurysm Code(s): I67.1 - CEREBRAL ANEURYSM, NONRUPTURED (6) S/P cerebral aneurysm repair Code(s): Z98.89 - OTHER SPECIFIED POSTPROCEDURAL STATES * DO NOT USE * Z86.79 - PERSONAL HISTORY OF OTHER DISEASES OF THE CIRCULATORY SYSTEM (7) Atrial fibrillation with normal ventricular rate Code(s): I48.91 - UNSPECIFIED ATRIAL FIBRILLATION (8) Bipolar I disorder with depression Code(s): F31.9 - BIPOLAR DISORDER, UNSPECIFIED (9) DVT prophylaxis Code(s): [id number] - (10) Bipolar disorder Code(s): F31.9 - BIPOLAR DISORDER, UNSPECIFIED Qualifiers: Current episode severity: unspecified (11) Diabetes Code(s): E11.9 - TYPE 2 DIABETES MELLITUS WITHOUT COMPLICATIONS Qualifiers: Diabetes mellitus type: type 2 Diabetes mellitus complication status: with unspecified complications (12) HLD (hyperlipidemia) Code(s): E78.5 - HYPERLIPIDEMIA, UNSPECIFIED (13) HTN (hypertension) Code(s): I10 - ESSENTIAL (PRIMARY) HYPERTENSION Qualifiers: Hypertension type: essential hypertension Qualified Code(s): I10 - Essential (primary) hypertension (14) Obesity Code(s): E66.9 - OBESITY, UNSPECIFIED Qualifiers: Obesity type: due to excess calories Obesity severity: non-morbid Qualified Code(s): E66.09 - Other obesity due to excess calories (15) Systolic CHF Code(s): I50.20 - UNSPECIFIED SYSTOLIC (CONGESTIVE) HEART FAILURE Qualifiers: Congestive heart failure chronicity: unspecified congestive heart failure chronicity Qualified Code(s): I50.20 - Unspecified systolic (congestive) heart failure Visit type - Emergency Visit Emergency Visit: Yes ED Registration Date: 06/13/16 Care time: The patient presented to the Emergency Department on the above date and was hospitalized for further evaluation of their emergent condition. - New Patient This patient is new to me today: Yes Date on this admission: 06/20/16 - Critical Care Critical Care patient: No - Discharge Referral Referred to [facility] No
[2016-06-20] MEDS: methylPREDNISolone NA SUCC 40 MG/1 ML VIAL IVPB SCH (17:25)
[2016-06-20] MEDS: INSULIN DETEMIR 100 UNITS/ML MDV SQ SCH (21:29)
[2016-06-20] MEDS: ATORVASTATIN CA 20 MG TABLET (FP) PO SCH (21:29)
[2016-06-20] MEDS: ZOLPIDEM TARTRATE 5 MG TABLET PO PRN (21:49)
[2016-06-20] MEDS ORDERED: INSULIN DETEMIR 100 UNITS/ML MDV SQ ONE (21:58)
[2016-06-20] MEDS ORDERED: guaiFENesin 600 MG TABLET.ER (FP) PO SCH (22:00)
[2016-06-21] MEDS ORDERED: PT OWN MED DRAWER 7, Y5N ONE (00:56)
[2016-06-21] MEDS: methylPREDNISolone NA SUCC 40 MG/1 ML VIAL IVPB SCH ×3 (02:01→17:45)
[2016-06-21] MEDS ORDERED: INSULIN (NOVOLOG) ASPART 100 UNITS/ML 10ML VIAL ONE ×4 (05:52→17:38)
[2016-06-21] MEDS: glipiZIDE 5 MG TABLET (FP) PO SCH (06:10)
[2016-06-21] MEDS: sitaGLIPtin PHOSPHATE 50 MG TABLET PO SCH (06:10)
[2016-06-21] MEDS: INSULIN SLIDING SCALE (NOVOLOG) 1 VIAL SQ SCH ×3 (06:10→17:43)
[2016-06-21] MEDS: ACETAMINOPHEN 325 MG TABLET (FP) PO PRN ×2 (06:11→15:23)
--- NOTE | 2016-06-21 09:35 | PN ---
Progress Note (short form) - Note Progress Note: PULMONARY Breathing continues to improve. Still some nonproductive cough and wheezing. No fevers or chills. Last Vital Signs Temp Pulse Resp BP Pulse Ox 98.8 F 65 18 171/88 99 06/21/16 06:00 06/21/16 06:00 06/21/16 06:00 06/21/16 06:00 06/20/16 21:00 Gen: NAD at rest Heart: RRR Lung: bilateral expiratory wheezes and ronchi, better air entry Abd: soft, nontender Ext: no edema CBC, BMP 06/17/16 05:35 06/17/16 05:35 Active Medications Acetaminophen (Tylenol -) 650 mg PO Q6H PRN PRN Reason: FEVER OR PAIN Last Admin: 06/21/16 06:11 Dose: 650 mg Albuterol Sulfate (Ventolin 0.083% Nebulizer Soln -) 1 amp NEB Q4H PRN PRN Reason: SHORT OF BREATH/WHEEZING Last Admin: 06/20/16 21:43 Dose: 1 amp Aspirin (Asa -) 81 mg PO DAILY [facility] Last Admin: 06/20/16 09:44 Dose: 81 mg Atorvastatin Calcium (Lipitor -) 20 mg PO HS [facility] Last Admin: 06/20/16 21:29 Dose: 20 mg Benzocaine/Menthol (Cepacol Lozenge -) 1 each MM Q4H PRN PRN Reason: SORE THROAT Last Admin: 06/17/16 05:45 Dose: 1 each Budesonide/Formoterol Fumarate (Symbicort 160/4.5mcg -) 2 puff IH BID [facility] Last Admin: 06/20/16 21:30 Dose: 2 puff Carvedilol (Coreg -) 12.5 mg PO BID [facility] Last Admin: 06/20/16 21:29 Dose: 12.5 mg Clopidogrel Bisulfate (Plavix -) 75 mg PO DAILY [facility] Last Admin: 06/20/16 09:44 Dose: 75 mg Colchicine (Colcrys -) 0.6 mg PO DAILY [facility] Last Admin: 06/20/16 09:44 Dose: 0.6 mg Digoxin (Lanoxin -) 0.125 mg PO DAILY [facility] Last Admin: 06/20/16 09:45 Dose: 0.125 mg Divalproex Sodium (Depakote -) 500 mg PO BID [facility] Last Admin: 06/20/16 21:29 Dose: 500 mg Docusate Sodium (Colace -) 100 mg PO BID [facility] Last Admin: 06/20/16 21:29 Dose: 100 mg Escitalopram Oxalate (Lexapro -) 20 mg PO DAILY [facility] Last Admin: 06/20/16 09:45 Dose: 20 mg Furosemide (Lasix -) 40 mg PO DAILY [facility] Last Admin: 06/20/16 09:44 Dose: 40 mg Glipizide (Glucotrol -) 5 mg PO ACBK [facility] Last Admin: 06/21/16 06:10 Dose: 5 mg Guaifenesin (Robitussin Dm -) 10 ml PO Q4H PRN PRN Reason: COUGH Last Admin: 06/20/16 21:49 Dose: 10 ml Insulin Aspart (Novolog Vial Sliding Scale -) 1 vial SQ TIDAC [facility] PRN Reason: Protocol Last Admin: 06/21/16 06:10 Dose: 6 units Insulin Detemir (Levemir Vial) 8 units SQ HS [facility] Last Admin: 06/20/16 21:29 Dose: 8 units Lisinopril (Prinivil) 5 mg PO DAILY [facility] Last Admin: 06/20/16 09:44 Dose: 5 mg Methylprednisolone Sodium Succinate (Solu-Medrol -) 40 mg IVPB Q8H-IV [facility] Last Admin: 06/21/16 02:01 Dose: 40 mg Pantoprazole Sodium (Protonix -) 40 mg PO DAILY [facility] Last Admin: 06/20/16 09:44 Dose: 40 mg Polyethylene Glycol (Miralax (For Daily Use) -) 17 gm PO DAILY [facility] Last Admin: 06/20/16 10:20 Dose: 17 grams Saliva Substitute (Mouthkote Solution -) 1 applic MM DAILY [facility] Last Admin: 06/20/16 10:21 Dose: Not Given Sitagliptin Phosphate (Januvia -) 50 mg PO ACBK [facility] Last Admin: 06/21/16 06:10 Dose: 50 mg Spironolactone (Aldactone -) 25 mg PO DAILY [facility] Last Admin: 06/20/16 09:44 Dose: 25 mg Tiotropium [place] (Spiriva -) 18 puff IH DAILY [facility] Last Admin: 06/20/16 10:20 Dose: 1 inh Zolpidem Tartrate (Ambien -) 5 mg PO HS PRN PRN Reason: INSOMNIA Last Admin: 06/20/16 21:49 Dose: 5 mg A/P Acute COPD Exacerbation LV Systolic Dysfunction CAD s/p CABG Atrial Fibrillation HTN DM Hyperlipidemia - continue medrol at current dose, if continues to improve can taper in AM - inhaled bronchodilators standing and PRN - O2 to keep SpO2 >90% - rate controlled - anticoagulation if no contraindications - DVT prophylaxis
[2016-06-21] MEDS: ESCITALOPRAM OXALATE 20 MG TABLET (FP) PO SCH (10:51)
[2016-06-21] MEDS: DIGOXIN 0.125 MG TABLET (FP) PO SCH (10:51)
[2016-06-21] MEDS: ASPIRIN 81 MG CHEWABLE TABLETS PO SCH (10:51)
[2016-06-21] MEDS: SPIRONOLACTONE 25 MG TABLET (FP) PO SCH (10:51)
[2016-06-21] MEDS: COLCHICINE 0.6 MG TABLET (FP) PO SCH (10:51)
[2016-06-21] MEDS: PANTOPRAZOLE 40 MG TABLET (FP) PO SCH (10:56)
[2016-06-21] MEDS: FUROSEMIDE 40 MG TABLET (FP) PO SCH (10:57)
[2016-06-21] MEDS: CLOPIDOGREL BISULFATE 75 MG TABLET (FP) PO SCH (10:57)
[2016-06-21] MEDS: LISINOPRIL 5 MG TABLET (FP) PO SCH (10:57)
[2016-06-21] MEDS: CARVEDILOL 12.5 MG TABLET (FP) PO SCH ×2 (10:57→21:17)
[2016-06-21] MEDS: DOCUSATE SODIUM 100 MG CAPSULE (FP) PO SCH ×2 (10:57→21:17)
[2016-06-21] MEDS: ENOXAPARIN NA (PORCINE) 40 MG/0.4 ML DISP.SYRIN SQ SCH (10:58)
[2016-06-21] MEDS: DIVALPROEX SODIUM 500 MG TABLET E.C. PO SCH ×2 (10:58→21:17)
[2016-06-21] MEDS: TIOTROPIUM BROMIDE 18 MCG/INH (DEVICE W/ 30 CAPSULES) IH SCH (10:59)
[2016-06-21] MEDS: BUDESONIDE/FORMETEROL FUMARATE 160/4.5 mcg INHALER IH SCH ×2 (10:59→21:18)
[2016-06-21] MEDS: LYTES/YERBA SANTA 240 ML BOTTLE MM SCH (11:26)
--- NOTE | 2016-06-21 11:33 | PN ---
Progress Note (short form) - Note Progress Note: Progress Note: Subjective Patient seen and examined. Feels better. Mood is pleasant Denies cp. Objective Vital Signs Period Temp Pulse Resp BP Sys/Bernard Pulse Ox Last 24 Hr 98.0 F-98.8 F 65-84 16-20 137-171/55-88 99 Active Medications Acetaminophen (Tylenol -) 650 mg PO Q6H PRN PRN Reason: FEVER OR PAIN Last Admin: 06/21/16 06:11 Dose: 650 mg Albuterol Sulfate (Ventolin 0.083% Nebulizer Soln -) 1 amp NEB Q4H PRN PRN Reason: SHORT OF BREATH/WHEEZING Last Admin: 06/20/16 21:43 Dose: 1 amp Aspirin (Asa -) 81 mg PO DAILY [facility] Last Admin: 06/21/16 10:51 Dose: 81 mg Atorvastatin Calcium (Lipitor -) 20 mg PO HS [facility] Last Admin: 06/20/16 21:29 Dose: 20 mg Benzocaine/Menthol (Cepacol Lozenge -) 1 each MM Q4H PRN PRN Reason: SORE THROAT Last Admin: 06/17/16 05:45 Dose: 1 each Budesonide/Formoterol Fumarate (Symbicort 160/4.5mcg -) 2 puff IH BID [facility] Last Admin: 06/21/16 10:59 Dose: 2 puff Carvedilol (Coreg -) 12.5 mg PO BID [facility] Last Admin: 06/21/16 10:57 Dose: 12.5 mg Clopidogrel Bisulfate (Plavix -) 75 mg PO DAILY [facility] Last Admin: 06/21/16 10:57 Dose: 75 mg Colchicine (Colcrys -) 0.6 mg PO DAILY [facility] Last Admin: 06/21/16 10:51 Dose: 0.6 mg Digoxin (Lanoxin -) 0.125 mg PO DAILY [facility] Last Admin: 06/21/16 10:51 Dose: 0.125 mg Divalproex Sodium (Depakote -) 500 mg PO BID [facility] Last Admin: 06/21/16 10:58 Dose: 500 mg Docusate Sodium (Colace -) 100 mg PO BID [facility] Last Admin: 06/21/16 10:57 Dose: 100 mg Enoxaparin Sodium (Lovenox -) 40 mg SQ DAILY [facility] Last Admin: 06/21/16 10:58 Dose: 40 mg Escitalopram Oxalate (Lexapro -) 20 mg PO DAILY [facility] Last Admin: 06/21/16 10:51 Dose: 20 mg Furosemide (Lasix -) 40 mg PO DAILY [facility] Last Admin: 06/21/16 10:57 Dose: 40 mg Glipizide (Glucotrol -) 5 mg PO ACBK [facility] Last Admin: 06/21/16 06:10 Dose: 5 mg Guaifenesin (Robitussin Dm -) 10 ml PO Q4H PRN PRN Reason: COUGH Last Admin: 06/20/16 21:49 Dose: 10 ml Insulin Aspart (Novolog Vial Sliding Scale -) 1 vial SQ TIDAC [facility] PRN Reason: Protocol Last Admin: 06/21/16 11:10 Dose: 4 units Insulin Detemir (Levemir Vial) 8 units SQ HS [facility] Last Admin: 06/20/16 21:29 Dose: 8 units Lisinopril (Prinivil) 5 mg PO DAILY [facility] Last Admin: 06/21/16 10:57 Dose: 5 mg Methylprednisolone Sodium Succinate (Solu-Medrol -) 40 mg IVPB Q8H-IV [facility] Last Admin: 06/21/16 10:59 Dose: 40 mg Pantoprazole Sodium (Protonix -) 40 mg PO DAILY [facility] Last Admin: 06/21/16 10:56 Dose: 40 mg Polyethylene Glycol (Miralax (For Daily Use) -) 17 gm PO DAILY [facility] Last Admin: 06/20/16 10:20 Dose: 17 grams Saliva Substitute (Mouthkote Solution -) 1 applic MM DAILY [facility] Last Admin: 06/21/16 11:26 Dose: 1 applic Sitagliptin Phosphate (Januvia -) 50 mg PO ACBK [facility] Last Admin: 06/21/16 06:10 Dose: 50 mg Spironolactone (Aldactone -) 25 mg PO DAILY [facility] Last Admin: 06/21/16 10:51 Dose: 25 mg Tiotropium [place] (Spiriva -) 18 puff IH DAILY [facility] Last Admin: 06/21/16 10:59 Dose: 1 inh Zolpidem Tartrate (Ambien -) 5 mg PO HS PRN PRN Reason: INSOMNIA Last Admin: 06/20/16 21:49 Dose: 5 mg CBC, BMP 06/17/16 05:35 06/17/16 05:35 Problem List - Problems (1) COPD exacerbation Code(s): J44.1 - CHRONIC OBSTRUCTIVE PULMONARY DISEASE W (ACUTE) EXACERBATION (2) Chest pain Code(s): R07.9 - CHEST PAIN, UNSPECIFIED Qualifiers: Chest pain type: unspecified Qualified Code(s): R07.9 - Chest pain, unspecified (3) NSTEMI (non-ST elevated myocardial infarction) Code(s): I21.4 - NON-ST ELEVATION (NSTEMI) MYOCARDIAL INFARCTION (4) Atrial fibrillation Code(s): I48.91 - UNSPECIFIED ATRIAL FIBRILLATION Qualifiers: Atrial fibrillation type: chronic Qualified Code(s): I48.2 - Chronic atrial fibrillation Physical Exam: Constitutional: Yes: No Distress, Calm Cardiovascular: Yes: Pulse Irregular Respiratory: Yes: Diminished, Rhonchi (decreased) Gastrointestinal: Yes: Normal Bowel Sounds, Soft, Abdomen, Obese. No: Distention, Tenderness Edema: No Assessment and Plan slowly getting better Continue steroids same dose pulmonary follow up noted Continue other meds meds reviewed Ambulate will follow
[2016-06-21] MEDS: POLYETHYLENE GLYCOL 3350 119 GM BTL PO SCH (15:21)
[2016-06-21] MEDS: ATORVASTATIN CA 20 MG TABLET (FP) PO SCH (21:17)
[2016-06-21] MEDS: INSULIN DETEMIR 100 UNITS/ML MDV SQ SCH (21:18)
[2016-06-21] MEDS: guaiFENesin/D-METHORPHAN HB 10 ML UNIT-DOSE CUPS PO PRN (21:26)
[2016-06-21] MEDS: ZOLPIDEM TARTRATE 5 MG TABLET PO PRN (21:26)
[2016-06-22] MEDS: methylPREDNISolone NA SUCC 40 MG/1 ML VIAL IVPB SCH ×3 (01:16→21:53)
[2016-06-22] MEDS: INSULIN SLIDING SCALE (NOVOLOG) 1 VIAL SQ SCH ×3 (06:34→17:02)
[2016-06-22] MEDS: sitaGLIPtin PHOSPHATE 50 MG TABLET PO SCH (06:34)
[2016-06-22] MEDS: glipiZIDE 5 MG TABLET (FP) PO SCH (06:34)
[2016-06-22] MEDS ORDERED: INSULIN (NOVOLOG) ASPART 100 UNITS/ML 10ML VIAL ONE (08:38)
[2016-06-22] MEDS ORDERED: PT OWN MED DRAWER 7, Y5N ONE ×3 (08:40→20:49)
[2016-06-22] MEDS: FUROSEMIDE 40 MG TABLET (FP) PO SCH (09:22)
[2016-06-22] MEDS: DOCUSATE SODIUM 100 MG CAPSULE (FP) PO SCH ×2 (09:23→21:49)
[2016-06-22] MEDS: SPIRONOLACTONE 25 MG TABLET (FP) PO SCH (09:23)
[2016-06-22] MEDS: ESCITALOPRAM OXALATE 20 MG TABLET (FP) PO SCH (09:23)
[2016-06-22] MEDS: CARVEDILOL 12.5 MG TABLET (FP) PO SCH ×2 (09:23→21:49)
[2016-06-22] MEDS: ASPIRIN 81 MG CHEWABLE TABLETS PO SCH (09:23)
[2016-06-22] MEDS: COLCHICINE 0.6 MG TABLET (FP) PO SCH (09:23)
[2016-06-22] MEDS: DIGOXIN 0.125 MG TABLET (FP) PO SCH (09:23)
[2016-06-22] MEDS: CLOPIDOGREL BISULFATE 75 MG TABLET (FP) PO SCH (09:23)
[2016-06-22] MEDS: PANTOPRAZOLE 40 MG TABLET (FP) PO SCH (09:23)
[2016-06-22] MEDS: LISINOPRIL 5 MG TABLET (FP) PO SCH (09:24)
[2016-06-22] MEDS: ENOXAPARIN NA (PORCINE) 40 MG/0.4 ML DISP.SYRIN SQ SCH (09:24)
[2016-06-22] MEDS: BUDESONIDE/FORMETEROL FUMARATE 160/4.5 mcg INHALER IH SCH ×2 (09:24→21:54)
[2016-06-22] MEDS: DIVALPROEX SODIUM 500 MG TABLET E.C. PO SCH ×2 (09:34→21:49)
[2016-06-22] MEDS: POLYETHYLENE GLYCOL 3350 119 GM BTL PO SCH (09:34)
[2016-06-22] MEDS: LYTES/YERBA SANTA 240 ML BOTTLE MM SCH (09:34)
[2016-06-22] MEDS: ACETAMINOPHEN 325 MG TABLET (FP) PO PRN ×2 (11:07→23:51)
--- NOTE | 2016-06-22 11:10 | PN ---
Progress Note (short form) - Note Progress Note: PULMONARY Breathing continues to improve. Still with nonproductive cough and wheezing. No fevers or chills. c/o constipation and dry eyes. Last Vital Signs Temp Pulse Resp BP Pulse Ox 98.4 F 88 18 146/81 98 06/22/16 07:20 06/22/16 09:23 06/22/16 07:20 06/22/16 07:20 06/21/16 21:00 Gen: NAD at rest Heart: RRR Lung: bilateral expiratory wheezes and ronchi, better air entry Abd: soft, nontender Ext: no edema CBC, BMP 06/17/16 05:35 06/17/16 05:35 Active Medications Acetaminophen (Tylenol -) 650 mg PO Q6H PRN PRN Reason: FEVER OR PAIN Last Admin: 06/22/16 11:07 Dose: 650 mg Albuterol Sulfate (Ventolin 0.083% Nebulizer Soln -) 1 amp NEB Q4H PRN PRN Reason: SHORT OF BREATH/WHEEZING Last Admin: 06/20/16 21:43 Dose: 1 amp Aspirin (Asa -) 81 mg PO DAILY [facility] Last Admin: 06/22/16 09:23 Dose: 81 mg Atorvastatin Calcium (Lipitor -) 20 mg PO HS [facility] Last Admin: 06/21/16 21:17 Dose: 20 mg Benzocaine/Menthol (Cepacol Lozenge -) 1 each MM Q4H PRN PRN Reason: SORE THROAT Last Admin: 06/17/16 05:45 Dose: 1 each Budesonide/Formoterol Fumarate (Symbicort 160/4.5mcg -) 2 puff IH BID [facility] Last Admin: 06/22/16 09:24 Dose: 2 puff Carvedilol (Coreg -) 12.5 mg PO BID [facility] Last Admin: 06/22/16 09:23 Dose: 12.5 mg Clopidogrel Bisulfate (Plavix -) 75 mg PO DAILY [facility] Last Admin: 06/22/16 09:23 Dose: 75 mg Colchicine (Colcrys -) 0.6 mg PO DAILY [facility] Last Admin: 06/22/16 09:23 Dose: 0.6 mg Digoxin (Lanoxin -) 0.125 mg PO DAILY [facility] Last Admin: 06/22/16 09:23 Dose: 0.125 mg Divalproex Sodium (Depakote -) 500 mg PO BID [facility] Last Admin: 06/22/16 09:34 Dose: 500 mg Docusate Sodium (Colace -) 100 mg PO BID [facility] Last Admin: 06/22/16 09:23 Dose: 100 mg Enoxaparin Sodium (Lovenox -) 40 mg SQ DAILY [facility] Last Admin: 06/22/16 09:24 Dose: 40 mg Escitalopram Oxalate (Lexapro -) 20 mg PO DAILY [facility] Last Admin: 06/22/16 09:23 Dose: 20 mg Furosemide (Lasix -) 40 mg PO DAILY [facility] Last Admin: 06/22/16 09:22 Dose: 40 mg Glipizide (Glucotrol -) 5 mg PO ACBK [facility] Last Admin: 06/22/16 06:34 Dose: 5 mg Guaifenesin (Robitussin Dm -) 10 ml PO Q4H PRN PRN Reason: COUGH Last Admin: 06/21/16 21:26 Dose: 10 ml Insulin Aspart (Novolog Vial Sliding Scale -) 1 vial SQ TIDAC [facility] PRN Reason: Protocol Last Admin: 06/22/16 06:34 Dose: 6 units Insulin Detemir (Levemir Vial) 8 units SQ HS [facility] Last Admin: 06/21/16 21:18 Dose: 8 units Lisinopril (Prinivil) 5 mg PO DAILY [facility] Last Admin: 06/22/16 09:24 Dose: 5 mg Methylprednisolone Sodium Succinate (Solu-Medrol -) 40 mg IVPB Q8H-IV [facility] Last Admin: 06/22/16 09:22 Dose: 40 mg Pantoprazole Sodium (Protonix -) 40 mg PO DAILY [facility] Last Admin: 06/22/16 09:23 Dose: 40 mg Polyethylene Glycol (Miralax (For Daily Use) -) 17 gm PO DAILY [facility] Last Admin: 06/22/16 09:34 Dose: Not Given Saliva Substitute (Mouthkote Solution -) 1 applic MM DAILY [facility] Last Admin: 06/22/16 09:34 Dose: 1 applic Sitagliptin Phosphate (Januvia -) 50 mg PO ACBK [facility] Last Admin: 06/22/16 06:34 Dose: 50 mg Spironolactone (Aldactone -) 25 mg PO DAILY [facility] Last Admin: 06/22/16 09:23 Dose: 25 mg Tiotropium [place] (Spiriva -) 1 puff IH DAILY [facility] Zolpidem Tartrate (Ambien -) 5 mg PO HS PRN PRN Reason: INSOMNIA Last Admin: 06/21/16 21:26 Dose: 5 mg A/P Acute COPD Exacerbation LV Systolic Dysfunction CAD s/p CABG Atrial Fibrillation HTN DM Hyperlipidemia - will decrease medrol to q12h, if continues to improve, can change steroids to PO in AM - inhaled bronchodilators standing and PRN - O2 to keep SpO2 >90% - rate controlled - anticoagulation if no contraindications - DVT prophylaxis
[2016-06-22] MEDS ORDERED: ARTIFICIAL TEARS (POLYVINYL ALCOHOL 1.4%) OPTH DROPS OU PRN (11:11)
[2016-06-22] MEDS: BISACODYL 5 MG TABLET.DR (FP) PO PRN (12:14)
[2016-06-22] MEDS: TIOTROPIUM BROMIDE 18 MCG/INH (DEVICE W/ 5 CAPSULES) IH SCH (12:14)
[2016-06-22] MEDS: TIOTROPIUM BROMIDE 18 MCG/INH (DEVICE W/ 30 CAPSULES) IH SCH (12:21)
--- NOTE | 2016-06-22 13:54 | PN ---
Progress Note (short form) - Note Progress Note: Pt feels better decreased sob. no cp overall better Vital Signs Temp 98.4 F 06/22/16 07:20 Pulse 65 06/22/16 11:16 Resp 20 06/22/16 10:00 BP 130/60 06/22/16 10:00 Pulse Ox 93 L 06/22/16 11:16 Intake & Output 06/21/16 06/22/16 06/22/16 23:59 11:59 23:59 Intake Total 1530 50 Output Total 1300 Balance 230 50 Weight 234 lb 0.5 oz Intake: IVPB 100 50 Oral 1430 Output: Urine 1300 Straight Cath 1300 Other: Voiding Method Toilet Self-Catheterization # Unmeasured Voids Straight Cath 1 1 Bowel Movement No Yes # Bowel Movements 1 Weight Measurement Method Standing Scale Active Medications Acetaminophen (Tylenol -) 650 mg PO Q6H PRN PRN Reason: FEVER OR PAIN Last Admin: 06/22/16 11:07 Dose: 650 mg Albuterol Sulfate (Ventolin 0.083% Nebulizer Soln -) 1 amp NEB Q4H PRN PRN Reason: SHORT OF BREATH/WHEEZING Last Admin: 06/20/16 21:43 Dose: 1 amp Artificial Tears (Artificial Tears) 1 drop OU QID PRN PRN Reason: DRY EYES Aspirin (Asa -) 81 mg PO DAILY [facility] Last Admin: 06/22/16 09:23 Dose: 81 mg Atorvastatin Calcium (Lipitor -) 20 mg PO HS [facility] Last Admin: 06/21/16 21:17 Dose: 20 mg Benzocaine/Menthol (Cepacol Lozenge -) 1 each MM Q4H PRN PRN Reason: SORE THROAT Last Admin: 06/17/16 05:45 Dose: 1 each Bisacodyl (Dulcolax -) 5 mg PO DAILY PRN PRN Reason: CONSTIPATION Last Admin: 06/22/16 12:14 Dose: 5 mg Budesonide/Formoterol Fumarate (Symbicort 160/4.5mcg -) 2 puff IH BID [facility] Last Admin: 06/22/16 09:24 Dose: 2 puff Carvedilol (Coreg -) 12.5 mg PO BID [facility] Last Admin: 06/22/16 09:23 Dose: 12.5 mg Clopidogrel Bisulfate (Plavix -) 75 mg PO DAILY [facility] Last Admin: 06/22/16 09:23 Dose: 75 mg Colchicine (Colcrys -) 0.6 mg PO DAILY [facility] Last Admin: 06/22/16 09:23 Dose: 0.6 mg Digoxin (Lanoxin -) 0.125 mg PO DAILY [facility] Last Admin: 06/22/16 09:23 Dose: 0.125 mg Divalproex Sodium (Depakote -) 500 mg PO BID [facility] Last Admin: 06/22/16 09:34 Dose: 500 mg Docusate Sodium (Colace -) 100 mg PO BID [facility] Last Admin: 06/22/16 09:23 Dose: 100 mg Enoxaparin Sodium (Lovenox -) 40 mg SQ DAILY [facility] Last Admin: 06/22/16 09:24 Dose: 40 mg Escitalopram Oxalate (Lexapro -) 20 mg PO DAILY [facility] Last Admin: 06/22/16 09:23 Dose: 20 mg Furosemide (Lasix -) 40 mg PO DAILY [facility] Last Admin: 06/22/16 09:22 Dose: 40 mg Glipizide (Glucotrol -) 5 mg PO ACBK [facility] Last Admin: 06/22/16 06:34 Dose: 5 mg Guaifenesin (Robitussin Dm -) 10 ml PO Q4H PRN PRN Reason: COUGH Last Admin: 06/21/16 21:26 Dose: 10 ml Insulin Aspart (Novolog Vial Sliding Scale -) 1 vial SQ TIDAC [facility] PRN Reason: Protocol Last Admin: 06/22/16 12:15 Dose: 6 units Insulin Detemir (Levemir Vial) 8 units SQ HS [facility] Last Admin: 06/21/16 21:18 Dose: 8 units Lisinopril (Prinivil) 5 mg PO DAILY [facility] Last Admin: 06/22/16 09:24 Dose: 5 mg Methylprednisolone Sodium Succinate (Solu-Medrol -) 40 mg IVPB BID [facility] Pantoprazole Sodium (Protonix -) 40 mg PO DAILY [facility] Last Admin: 06/22/16 09:23 Dose: 40 mg Polyethylene Glycol (Miralax (For Daily Use) -) 17 gm PO DAILY [facility] Last Admin: 06/22/16 09:34 Dose: Not Given Saliva Substitute (Mouthkote Solution -) 1 applic MM DAILY [facility] Last Admin: 06/22/16 09:34 Dose: 1 applic Sitagliptin Phosphate (Januvia -) 50 mg PO ACBK [facility] Last Admin: 06/22/16 06:34 Dose: 50 mg Spironolactone (Aldactone -) 25 mg PO DAILY [facility] Last Admin: 06/22/16 09:23 Dose: 25 mg Tiotropium [place] (Spiriva -) 1 puff IH DAILY [facility] Last Admin: 06/22/16 12:14 Dose: 1 puff Zolpidem Tartrate (Ambien -) 5 mg PO HS PRN PRN Reason: INSOMNIA Last Admin: 06/21/16 21:26 Dose: 5 mg CBC, BMP 06/17/16 05:35 06/17/16 05:35 Physical Exam: Constitutional: Yes: No Distress, Calm Cardiovascular: Yes: Pulse Irregular Respiratory: Yes: Diminished, Rhonchi (decreased) Gastrointestinal: Yes: Normal Bowel Sounds, Soft, Abdomen, Obese. No: Distention, Tenderness Edema: No Assessment and Plan slowly getting better Continue steroids --taper pulmonary follow up noted Continue other meds meds reviewed Ambulate will follow d/c planning- likely in am on po steroids if better
[2016-06-22] MEDS: INSULIN DETEMIR 100 UNITS/ML MDV SQ SCH (21:49)
[2016-06-22] MEDS: ATORVASTATIN CA 20 MG TABLET (FP) PO SCH (21:51)
[2016-06-22] MEDS: ZOLPIDEM TARTRATE 5 MG TABLET PO PRN (21:52)
[2016-06-22] MEDS: guaiFENesin/D-METHORPHAN HB 10 ML UNIT-DOSE CUPS PO PRN (21:55)
[2016-06-23] MEDS: ACETAMINOPHEN 325 MG TABLET (FP) PO PRN ×3 (06:50→23:32)
[2016-06-23] MEDS: guaiFENesin/D-METHORPHAN HB 10 ML UNIT-DOSE CUPS PO PRN ×3 (06:50→23:34)
[2016-06-23] MEDS: sitaGLIPtin PHOSPHATE 50 MG TABLET PO SCH (06:50)
[2016-06-23] MEDS: glipiZIDE 5 MG TABLET (FP) PO SCH (06:50)
[2016-06-23] MEDS: INSULIN SLIDING SCALE (NOVOLOG) 1 VIAL SQ SCH ×3 (06:51→17:47)
[2016-06-23] MEDS ORDERED: INSULIN DETEMIR 100 UNITS/ML MDV SQ ONE (07:15)
[2016-06-23] MEDS ORDERED: INSULIN (NOVOLOG) ASPART 100 UNITS/ML 10ML VIAL ONE (07:15)
--- NOTE | 2016-06-23 07:18 | PN ---
Progress Note, Physician Chief Complaint: Pt denies chest pain or dyspnea; sitting up at bedside. History of Present Illness: The patient is a 70 year old black female, with a significant past medical history of cerebral aneurysm s/p bleed s/p repair (06/2015), HLD, HTN, DM, CAD s/ p MIs, diastolic CHF, pacemaker, Afib on asa and plavix, who presents to the emergency department from [facility] with SOB and cough for 2 weeks. She reports having tightness and soreness in her chest whenever she coughs. She denies any chest pain when she does not cough. She reports having decreased appetite. Patient also notes having chills and being weak since being symptomatic. She reports having a neb treatment with no significant improvement at her [place]. She denies recent fevers, headache or dizziness. She denies recent nausea, vomit, diarrhea or constipation. She denies recent dysuria, frequency, urgency or hematuria. +sick contacts at [facility] Allergies: NKA Social history: Former Smoker; ETOH abuse. PCP: CARDIO: - Current Medication List Current Medications: Active Medications Acetaminophen (Tylenol -) 650 mg PO Q6H PRN PRN Reason: FEVER OR PAIN Last Admin: 06/23/16 06:50 Dose: 650 mg Albuterol Sulfate (Ventolin 0.083% Nebulizer Soln -) 1 amp NEB Q4H PRN PRN Reason: SHORT OF BREATH/WHEEZING Last Admin: 06/20/16 21:43 Dose: 1 amp Artificial Tears (Artificial Tears) 1 drop OU QID PRN PRN Reason: DRY EYES Aspirin (Asa -) 81 mg PO DAILY [facility] Last Admin: 06/22/16 09:23 Dose: 81 mg Atorvastatin Calcium (Lipitor -) 20 mg PO HS [facility] Last Admin: 06/22/16 21:51 Dose: 20 mg Benzocaine/Menthol (Cepacol Lozenge -) 1 each MM Q4H PRN PRN Reason: SORE THROAT Last Admin: 06/17/16 05:45 Dose: 1 each Bisacodyl (Dulcolax -) 5 mg PO DAILY PRN PRN Reason: CONSTIPATION Last Admin: 06/22/16 12:14 Dose: 5 mg Budesonide/Formoterol Fumarate (Symbicort 160/4.5mcg -) 2 puff IH BID [facility] Last Admin: 06/22/16 21:54 Dose: 2 puff Carvedilol (Coreg -) 12.5 mg PO BID [facility] Last Admin: 06/22/16 21:49 Dose: 12.5 mg Clopidogrel Bisulfate (Plavix -) 75 mg PO DAILY [facility] Last Admin: 06/22/16 09:23 Dose: 75 mg Colchicine (Colcrys -) 0.6 mg PO DAILY [facility] Last Admin: 06/22/16 09:23 Dose: 0.6 mg Digoxin (Lanoxin -) 0.125 mg PO DAILY [facility] Last Admin: 06/22/16 09:23 Dose: 0.125 mg Divalproex Sodium (Depakote -) 500 mg PO BID [facility] Last Admin: 06/22/16 21:49 Dose: 500 mg Docusate Sodium (Colace -) 100 mg PO BID [facility] Last Admin: 06/22/16 21:49 Dose: 100 mg Enoxaparin Sodium (Lovenox -) 40 mg SQ DAILY [facility] Last Admin: 06/22/16 09:24 Dose: 40 mg Escitalopram Oxalate (Lexapro -) 20 mg PO DAILY [facility] Last Admin: 06/22/16 09:23 Dose: 20 mg Furosemide (Lasix -) 40 mg PO DAILY [facility] Last Admin: 06/22/16 09:22 Dose: 40 mg Glipizide (Glucotrol -) 5 mg PO ACBK [facility] Last Admin: 06/23/16 06:50 Dose: 5 mg Guaifenesin (Robitussin Dm -) 10 ml PO Q4H PRN PRN Reason: COUGH Last Admin: 06/23/16 06:50 Dose: 10 ml Insulin Aspart (Novolog Vial Sliding Scale -) 1 vial SQ TIDAC [facility] PRN Reason: Protocol Last Admin: 06/23/16 06:51 Dose: 8 units Insulin Detemir (Levemir Vial) 8 units SQ HS [facility] Last Admin: 06/22/16 21:49 Dose: 8 units Lisinopril (Prinivil) 5 mg PO DAILY [facility] Last Admin: 06/22/16 09:24 Dose: 5 mg Methylprednisolone Sodium Succinate (Solu-Medrol -) 40 mg IVPB BID [facility] Last Admin: 06/22/16 21:53 Dose: 40 mg Pantoprazole Sodium (Protonix -) 40 mg PO DAILY [facility] Last Admin: 06/22/16 09:23 Dose: 40 mg Polyethylene Glycol (Miralax (For Daily Use) -) 17 gm PO DAILY [facility] Last Admin: 06/22/16 09:34 Dose: Not Given Saliva Substitute (Mouthkote Solution -) 1 applic MM DAILY [facility] Last Admin: 06/22/16 09:34 Dose: 1 applic Sitagliptin Phosphate (Januvia -) 50 mg PO ACBK [facility] Last Admin: 06/23/16 06:50 Dose: 50 mg Spironolactone (Aldactone -) 25 mg PO DAILY [facility] Last Admin: 06/22/16 09:23 Dose: 25 mg Tiotropium [place] (Spiriva -) 1 puff IH DAILY [facility] Last Admin: 06/22/16 12:14 Dose: 1 puff Zolpidem Tartrate (Ambien -) 10 mg PO HS PRN PRN Reason: INSOMNIA Last Admin: 06/22/16 21:52 Dose: 10 mg - Objective Vital Signs: Vital Signs Temperature 98 F 06/22/16 22:00 Pulse Rate 99 H 06/22/16 22:00 Respiratory Rate 18 06/22/16 22:00 Blood Pressure 136/56 06/22/16 22:00 O2 Sat by Pulse Oximetry (%) 97 06/22/16 21:00 Constitutional: Yes: Calm Eyes: Yes: WNL HENT: Yes: WNL Neck: Yes: WNL Cardiovascular: Yes: Regular Rate and Rhythm Respiratory: Yes: Regular Gastrointestinal: Yes: Soft ...Rectal Exam: Yes: Deferred Genitourinary: Yes: Anuria Breast(s): Yes: WNL Musculoskeletal: Yes: Joint Stiffness Extremities: Yes: Cool Edema: No Peripheral Pulses WNL: Yes Neurological: Yes: Alert, Oriented, Weakness Psychiatric: Yes: Alert, Oriented Labs: CBC, BMP 06/17/16 05:35 06/17/16 05:35 INR, PTT INR 1.22 (0.82-1.09) H 06/13/16 16:31 Problem List - Problems (1) COPD exacerbation Assessment/Plan: bronchodilators, steroids, and O2 per planer offbearer. Code(s): J44.1 - CHRONIC OBSTRUCTIVE PULMONARY DISEASE W (ACUTE) EXACERBATION (2) Chest pain Assessment/Plan: non-obstructive CAD on most recent coronary angiogram. Continue anti-ischemic/CHF medications. On ASA and clopidogrel. Physical rehabilitaion. Code(s): R07.9 - CHEST PAIN, UNSPECIFIED Qualifiers: Chest pain type: unspecified Qualified Code(s): R07.9 - Chest pain, unspecified (3) Renal dysfunction Assessment/Plan: avoid dehydration (would discontinue furosemide); f/u BUN/Cr. Code(s): N28.9 - DISORDER OF KIDNEY AND URETER, UNSPECIFIED (4) Subconjunctival hemorrhage of left eye Code(s): H11.32 - CONJUNCTIVAL HEMORRHAGE, LEFT EYE (5) AA (alcohol abuse) Code(s): F10.10 - ALCOHOL ABUSE, UNCOMPLICATED (6) Atrial fibrillation Assessment/Plan: On carvedilol for AF HR control (as well as for severe systolic LV dysfunction and HTN). On ASA and clopidogrel (CAD and PAD); off systemic anticoagulant due to hx cerebral bleed. Code(s): I48.91 - UNSPECIFIED ATRIAL FIBRILLATION Qualifiers: Atrial fibrillation type: chronic Qualified Code(s): I48.2 - Chronic atrial fibrillation (7) Bipolar I disorder with depression Code(s): F31.9 - BIPOLAR DISORDER, UNSPECIFIED (8) Acute on chronic systolic (congestive) heart failure Assessment/Plan: Continue Coreg, lisinopril, Aldactone. On digoxin; keep level 0.5-1.0 (presently 0.7) Would discontinue furosemide (no JVD; CXR without acute changes; rising BUN). F/u K+ (presently 4.8); pt is on ACEI and spironolactone. Code(s): I50.23 - ACUTE ON CHRONIC SYSTOLIC (CONGESTIVE) HEART FAILURE
[2016-06-23] MEDS ORDERED: PT OWN MED DRAWER 7, Y5N ONE ×4 (10:01→22:40)
--- NOTE | 2016-06-23 10:06 | PN ---
Progress Note (short form) - Note Progress Note: Subjective Patient seen and examined. Feels the same. Denies chest pain. Objective Last Vital Signs Temp Pulse Resp BP Pulse Ox 98.6 F 75 24 140/75 97 06/23/16 09:54 06/23/16 09:54 06/23/16 09:54 06/23/16 09:54 06/22/16 21:00 CBC, BMP 06/17/16 05:35 06/17/16 05:35 Laboratory Results - last 24 hr 06/22/16 06/22/16 06/23/16 12:13 16:42 06:49 POC Glucometer 263 287 312 Physical Exam Constitutional: Yes: No Distress, Calm Cardiovascular: Yes: Pulse Irregular Respiratory: Yes: Bilateral Wheezes Gastrointestinal: Yes: Normal Bowel Sounds, Soft, Abdomen, Obese. No: Distention, Tenderness Edema: No Assessment and Plan slowly getting better Continue steroids --will continue same dose today pulmonary follow up Continue other meds meds reviewed Ambulate will follow d/c planning- likely in am on po steroids if better Documentation prepared by Tasha Bearden, acting as a paramedical aide for Madelaine Collier MD.
[2016-06-23] MEDS: methylPREDNISolone NA SUCC 40 MG/1 ML VIAL IVPB SCH ×2 (10:10→23:54)
[2016-06-23] MEDS: ASPIRIN 81 MG CHEWABLE TABLETS PO SCH (10:10)
[2016-06-23] MEDS: ESCITALOPRAM OXALATE 20 MG TABLET (FP) PO SCH (10:11)
[2016-06-23] MEDS: PANTOPRAZOLE 40 MG TABLET (FP) PO SCH (10:11)
[2016-06-23] MEDS: CARVEDILOL 12.5 MG TABLET (FP) PO SCH ×2 (10:11→23:12)
[2016-06-23] MEDS: FUROSEMIDE 40 MG TABLET (FP) PO SCH (10:11)
[2016-06-23] MEDS: COLCHICINE 0.6 MG TABLET (FP) PO SCH (10:11)
[2016-06-23] MEDS: LISINOPRIL 5 MG TABLET (FP) PO SCH (10:11)
[2016-06-23] MEDS: SPIRONOLACTONE 25 MG TABLET (FP) PO SCH (10:11)
[2016-06-23] MEDS: CLOPIDOGREL BISULFATE 75 MG TABLET (FP) PO SCH (10:11)
[2016-06-23] MEDS: DIGOXIN 0.125 MG TABLET (FP) PO SCH (10:11)
[2016-06-23] MEDS: DOCUSATE SODIUM 100 MG CAPSULE (FP) PO SCH ×2 (10:12→23:12)
[2016-06-23] MEDS: ENOXAPARIN NA (PORCINE) 40 MG/0.4 ML DISP.SYRIN SQ SCH (10:12)
[2016-06-23] MEDS: DIVALPROEX SODIUM 500 MG TABLET E.C. PO SCH ×2 (10:12→23:13)
[2016-06-23] MEDS: BUDESONIDE/FORMETEROL FUMARATE 160/4.5 mcg INHALER IH SCH ×2 (10:13→23:13)
[2016-06-23] MEDS: LYTES/YERBA SANTA 240 ML BOTTLE MM SCH (10:17)
[2016-06-23] MEDS: POLYETHYLENE GLYCOL 3350 119 GM BTL PO SCH (10:17)
[2016-06-23] MEDS: BISACODYL 5 MG TABLET.DR (FP) PO PRN (10:22)
[2016-06-23] MEDS: TIOTROPIUM BROMIDE 18 MCG/INH (DEVICE W/ 5 CAPSULES) IH SCH (10:22)
--- NOTE | 2016-06-23 11:09 | PN ---
Physical Exam: SUBJECTIVE: Patient seen and examined Patient resting in bed NAD. No acute events overnight. Afebrile and hemodynamically stable. States she feels better. Ambulating down hallway without O2, no SOB. Uses NC rarely when coughing and at night. Still has trouble coughing up the sputum but feels secretions loosening. Deneis chest pain , f/c, n/c, abd pain, diarrhea or constipation. OBJECTIVE: Vital Signs Period Temp Pulse Resp BP Sys/Bernard Pulse Ox Last 24 Hr 98 F-98.6 F 61-99 18-24 129-160/55-75 93-97 GENERAL: The patient is awake, alert, and fully oriented, in no acute distress. HEAD: Normal with no signs of trauma. EYES: PERRL, extraocular movements intact, sclera anicteric, conjunctiva clear. ENT: moist mucous membranes. NECK: supple. LUNGS: bronchial ronchi, CTA lung castellano HEART: rate controlled, irregularly irregular, S1, S2 ABDOMEN: Soft, nontender, nondistended, normoactive bowel sounds EXTREMITIES: 2+ pulses, warm, well-perfused, no edema. NEUROLOGICAL: Cranial nerves II through XII grossly intact. Normal speech, gait not observed. PSYCH: Normal mood, normal affect. SKIN: Warm, dry Laboratory Results - last 24 hr 06/22/16 06/22/16 06/23/16 12:13 16:42 06:49 POC Glucometer 263 287 312 06/23/16 10:51 POC Glucometer 263 Active Medications Generic Name Dose Route Start Last Admin Trade Name Freq PRN Reason Stop Dose Admin Acetaminophen 650 mg 06/14/16 01:07 06/23/16 06:50 Tylenol - PO 650 mg Q6H PRN Administration FEVER OR PAIN Albuterol Sulfate 1 amp 06/18/16 14:53 06/20/16 21:43 Ventolin 0.083% Nebulizer Soln - NEB 1 amp Q4H PRN Administration SHORT OF BREATH/WHEEZING Artificial Tears 1 drop 06/22/16 11:11 Artificial Tears OU QID PRN DRY EYES Aspirin 81 mg 06/14/16 10:00 06/23/16 10:10 Asa - PO 81 mg DAILY [facility] Administration Atorvastatin Calcium 20 mg 06/13/16 22:00 06/22/16 21:51 Lipitor - PO 20 mg HS [facility] Administration Benzocaine/Menthol 1 each 06/16/16 09:27 06/17/16 05:45 Cepacol Lozenge - MM 1 each Q4H PRN Administration SORE THROAT Bisacodyl 5 mg 06/22/16 11:10 06/23/16 10:22 Dulcolax - PO 5 mg DAILY PRN Administration CONSTIPATION Budesonide/Formoterol Fumarate 2 puff 06/17/16 11:30 06/23/16 10:13 Symbicort 160/4.5mcg - IH 2 puff BID [facility] Administration Carvedilol 12.5 mg 06/13/16 22:00 06/23/16 10:11 Coreg - PO 12.5 mg BID [facility] Administration Clopidogrel Bisulfate 75 mg 06/14/16 10:00 06/23/16 10:11 Plavix - PO 75 mg DAILY [facility] Administration Colchicine 0.6 mg 06/14/16 10:00 06/23/16 10:11 Colcrys - PO 0.6 mg DAILY [facility] Administration Digoxin 0.125 mg 06/14/16 10:00 06/23/16 10:11 Lanoxin - PO 0.125 mg DAILY [facility] Administration Divalproex Sodium 500 mg 06/13/16 22:00 06/23/16 10:12 Depakote - PO 500 mg BID [facility] Administration Docusate Sodium 100 mg 06/13/16 22:00 06/23/16 10:12 Colace - PO 100 mg BID [facility] Administration Enoxaparin Sodium 40 mg 06/21/16 10:00 06/23/16 10:12 Lovenox - SQ 40 mg DAILY [facility] Administration Escitalopram Oxalate 20 mg 06/14/16 10:00 06/23/16 10:11 Lexapro - PO 20 mg DAILY [facility] Administration Furosemide 40 mg 06/14/16 10:00 06/23/16 10:11 Lasix - PO 40 mg DAILY [facility] Administration Glipizide 5 mg 06/14/16 07:00 06/23/16 06:50 Glucotrol - PO 5 mg ACBK [facility] Administration Guaifenesin 10 ml 06/17/16 10:07 06/23/16 06:50 Robitussin Dm - PO 10 ml Q4H PRN Administration COUGH Insulin Aspart 1 vial 06/14/16 07:00 06/23/16 06:51 Novolog Vial Sliding Scale - SQ 8 units TIDAC [facility] Administration Protocol Insulin Detemir 8 units 06/16/16 22:00 06/22/16 21:49 Levemir Vial SQ 8 units HS [facility] Administration Lisinopril 5 mg 06/14/16 10:00 06/23/16 10:11 Prinivil PO 5 mg DAILY [facility] Administration Methylprednisolone Sodium Succinate 40 mg 06/22/16 22:00 06/23/16 10:10 Solu-Medrol - IVPB 40 mg BID [facility] Administration Pantoprazole Sodium 40 mg 06/14/16 10:00 06/23/16 10:11 Protonix - PO 40 mg DAILY [facility] Administration Polyethylene Glycol 17 gm 06/14/16 10:30 06/23/16 10:17 Miralax (For Daily Use) - PO Not Given DAILY [facility] Saliva Substitute 1 applic 06/17/16 13:30 06/23/16 10:17 Mouthkote Solution - MM 1 applic DAILY [facility] Administration Sitagliptin Phosphate 50 mg 06/14/16 07:00 06/23/16 06:50 Januvia - PO 50 mg ACBK [facility] Administration Spironolactone 25 mg 06/14/16 10:00 06/23/16 10:11 Aldactone - PO 25 mg DAILY [facility] Administration Tiotropium [place] 1 puff 06/22/16 10:45 06/23/16 10:22 Spiriva - IH 1 puff DAILY [facility] Administration Zolpidem Tartrate 10 mg 06/22/16 21:15 06/22/16 21:52 Ambien - PO 10 mg HS PRN Administration INSOMNIA ASSESSMENT/PLAN: Acute on Chronic COPD exacerbation -symptomatic improvement -CT chest no acute process -NC O2 as needed -symbicort, spiriva, albuterol -medrol 40 BID day 2; will change to PO steroids tomorrow if improved -mucinex -abx not indicated -pre/post exercise O2 measurement before d/c -outpatient sleep study systolic CHF -s/p ICD -stable Afib -rate controlled -continue plavix HTN -continue home meds HLD -continue home meds DM -tight glycemic control while on steroids Problem List - Problems (1) COPD (chronic obstructive pulmonary disease) Code(s): J44.9 - CHRONIC OBSTRUCTIVE PULMONARY DISEASE, UNSPECIFIED (2) COPD exacerbation Code(s): J44.1 - CHRONIC OBSTRUCTIVE PULMONARY DISEASE W (ACUTE) EXACERBATION (3) Atrial fibrillation Code(s): I48.91 - UNSPECIFIED ATRIAL FIBRILLATION Qualifiers: Atrial fibrillation type: chronic Qualified Code(s): I48.2 - Chronic atrial fibrillation (4) Atrial fibrillation with normal ventricular rate Code(s): I48.91 - UNSPECIFIED ATRIAL FIBRILLATION (5) Bipolar I disorder with depression Code(s): F31.9 - BIPOLAR DISORDER, UNSPECIFIED (6) DVT prophylaxis Code(s): [id number] - (7) Bipolar disorder Code(s): F31.9 - BIPOLAR DISORDER, UNSPECIFIED Qualifiers: Current episode severity: unspecified (8) Diabetes Code(s): E11.9 - TYPE 2 DIABETES MELLITUS WITHOUT COMPLICATIONS Qualifiers: Diabetes mellitus type: type 2 Diabetes mellitus complication status: with unspecified complications (9) HLD (hyperlipidemia) Code(s): E78.5 - HYPERLIPIDEMIA, UNSPECIFIED (10) HTN (hypertension) Code(s): I10 - ESSENTIAL (PRIMARY) HYPERTENSION Qualifiers: Hypertension type: essential hypertension Qualified Code(s): I10 - Essential (primary) hypertension (11) Obesity Code(s): E66.9 - OBESITY, UNSPECIFIED Qualifiers: Obesity type: due to excess calories Obesity severity: non-morbid Qualified Code(s): E66.09 - Other obesity due to excess calories (12) Systolic CHF Code(s): I50.20 - UNSPECIFIED SYSTOLIC (CONGESTIVE) HEART FAILURE Qualifiers: Congestive heart failure chronicity: unspecified congestive heart failure chronicity Qualified Code(s): I50.20 - Unspecified systolic (congestive) heart failure Visit type - Emergency Visit Emergency Visit: Yes ED Registration Date: 06/13/16 Care time: The patient presented to the Emergency Department on the above date and was hospitalized for further evaluation of their emergent condition. - New Patient This patient is new to me today: No - Critical Care Critical Care patient: No - Discharge Referral Referred to [facility] No
--- NOTE | 2016-06-23 13:25 | PN ---
Teaching Attending Note Name of Resident: Lisbet Godwin ATTENDING PHYSICIAN STATEMENT I saw and evaluated the patient. I reviewed the resident's note and discussed the case with the resident. I agree with the resident's findings and plan as documented. pulmonary alert,feeling better,less dyspneic,less cough SUBJECTIVE: IMP COPD EXACERBATION IMPROVING CHF SEVERE LV DYSFUNCTION S/P ICD ASHD S/P PA X 3 AFIB DM HTN HLD H/O SMOKING H/O MANUFACTURE SPECIALIST BLEED H/O ETOH BIPOLAR PLAN CONT STEROID TAPER INHALED BRONCHODILATORS NASAL O2 LASIX ANTIBIOTICS PFTS 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 - Problems (1) Acute on chronic systolic (congestive) heart failure Code(s): I50.23 - ACUTE ON CHRONIC SYSTOLIC (CONGESTIVE) HEART FAILURE (2) COPD exacerbation Code(s): J44.1 - CHRONIC OBSTRUCTIVE PULMONARY DISEASE W (ACUTE) EXACERBATION (3) Chest pain Code(s): R07.9 - CHEST PAIN, UNSPECIFIED Qualifiers: Chest pain type: unspecified Qualified Code(s): R07.9 - Chest pain, unspecified (4) Renal dysfunction Code(s): N28.9 - DISORDER OF KIDNEY AND URETER, UNSPECIFIED (5) AA (alcohol abuse) Code(s): F10.10 - ALCOHOL ABUSE, UNCOMPLICATED (6) Atrial fibrillation Code(s): I48.91 - UNSPECIFIED ATRIAL FIBRILLATION Qualifiers: Atrial fibrillation type: chronic Qualified Code(s): I48.2 - Chronic atrial fibrillation (7) Brain aneurysm Code(s): I67.1 - CEREBRAL ANEURYSM, NONRUPTURED (9) Atrial fibrillation with normal ventricular rate Code(s): I48.91 - UNSPECIFIED ATRIAL FIBRILLATION (10) Atypical chest pain Code(s): R07.89 - OTHER CHEST PAIN (11) Bipolar I disorder with depression Code(s): F31.9 - BIPOLAR DISORDER, UNSPECIFIED (12) Arteriosclerosis of coronary artery in patient with history of myocardial infarction Code(s): I25.10 - ATHSCL HEART DISEASE OF [place] CORONARY ARTERY W/O ANG PCTRS I25.2 - OLD MYOCARDIAL INFARCTION (13) Chronic bronchitis Code(s): J42 - UNSPECIFIED CHRONIC BRONCHITIS Qualifiers: Chronic bronchitis type: unspecified Qualified Code(s): J42 - Unspecified chronic bronchitis (14) HLD (hyperlipidemia) Code(s): E78.5 - HYPERLIPIDEMIA, UNSPECIFIED (15) HTN (hypertension) Code(s): I10 - ESSENTIAL (PRIMARY) HYPERTENSION Qualifiers: Hypertension type: essential hypertension Qualified Code(s): I10 - Essential (primary) hypertension (16) Neurogenic bladder Code(s): N31.9 - NEUROMUSCULAR DYSFUNCTION OF BLADDER, UNSPECIFIED (17) Obesity Code(s): E66.9 - OBESITY, UNSPECIFIED Qualifiers: Obesity type: due to excess calories Obesity severity: non-morbid Qualified Code(s): E66.09 - Other obesity due to excess calories (18) COPD (chronic obstructive pulmonary disease) Code(s): J44.9 - CHRONIC OBSTRUCTIVE PULMONARY DISEASE, UNSPECIFIED OBJECTIVE: ASSESSMENT AND PLAN: Problem List - Problems (1) Acute on chronic systolic (congestive) heart failure Code(s): I50.23 - ACUTE ON CHRONIC SYSTOLIC (CONGESTIVE) HEART FAILURE (2) COPD exacerbation Code(s): J44.1 - CHRONIC OBSTRUCTIVE PULMONARY DISEASE W (ACUTE) EXACERBATION (3) Chest pain Code(s): R07.9 - CHEST PAIN, UNSPECIFIED Qualifiers: Chest pain type: unspecified Qualified Code(s): R07.9 - Chest pain, unspecified (4) Renal dysfunction Code(s): N28.9 - DISORDER OF KIDNEY AND URETER, UNSPECIFIED (5) AA (alcohol abuse) Code(s): F10.10 - ALCOHOL ABUSE, UNCOMPLICATED (6) Atrial fibrillation Code(s): I48.91 - UNSPECIFIED ATRIAL FIBRILLATION Qualifiers: Atrial fibrillation type: chronic Qualified Code(s): I48.2 - Chronic atrial fibrillation (7) Brain aneurysm Code(s): I67.1 - CEREBRAL ANEURYSM, NONRUPTURED (9) Atrial fibrillation with normal ventricular rate Code(s): I48.91 - UNSPECIFIED ATRIAL FIBRILLATION (10) Atypical chest pain Code(s): R07.89 - OTHER CHEST PAIN (11) Bipolar I disorder with depression Code(s): F31.9 - BIPOLAR DISORDER, UNSPECIFIED (12) Arteriosclerosis of coronary artery in patient with history of myocardial infarction Code(s): I25.10 - ATHSCL HEART DISEASE OF [place] CORONARY ARTERY W/O ANG PCTRS I25.2 - OLD MYOCARDIAL INFARCTION (13) Chronic bronchitis Code(s): J42 - UNSPECIFIED CHRONIC BRONCHITIS Qualifiers: Chronic bronchitis type: unspecified Qualified Code(s): J42 - Unspecified chronic bronchitis (14) HLD (hyperlipidemia) Code(s): E78.5 - HYPERLIPIDEMIA, UNSPECIFIED (15) HTN (hypertension) Code(s): I10 - ESSENTIAL (PRIMARY) HYPERTENSION Qualifiers: Hypertension type: essential hypertension Qualified Code(s): I10 - Essential (primary) hypertension (16) Neurogenic bladder Code(s): N31.9 - NEUROMUSCULAR DYSFUNCTION OF BLADDER, UNSPECIFIED (17) Obesity Code(s): E66.9 - OBESITY, UNSPECIFIED Qualifiers: Obesity type: due to excess calories Obesity severity: non-morbid Qualified Code(s): E66.09 - Other obesity due to excess calories (18) COPD (chronic obstructive pulmonary disease) Code(s): J44.9 - CHRONIC OBSTRUCTIVE PULMONARY DISEASE, UNSPECIFIED
--- NOTE | 2016-06-23 13:30 | PN ---
Progress Note, Physician History of Present Illness: The patient is a 70 year old black female, with a significant past medical history of cerebral aneurysm s/p bleed s/p repair (06/2015), HLD, HTN, DM, CAD s/ p MIs, diastolic CHF, pacemaker, Afib on asa and plavix, who presents to the emergency department from [facility] with SOB and cough for 2 weeks. She reports having tightness and soreness in her chest whenever she coughs. She denies any chest pain when she does not cough. She reports having decreased appetite. Patient also notes having chills and being weak since being symptomatic. She reports having a neb treatment with no significant improvement at her MI. She denies recent fevers, headache or dizziness. She denies recent nausea, vomit, diarrhea or constipation. She denies recent dysuria, frequency, urgency or hematuria. +sick contacts at [facility] - Current Medication List Current Medications: Active Medications Acetaminophen (Tylenol -) 650 mg PO Q6H PRN PRN Reason: FEVER OR PAIN Last Admin: 06/23/16 06:50 Dose: 650 mg Albuterol Sulfate (Ventolin 0.083% Nebulizer Soln -) 1 amp NEB Q4H PRN PRN Reason: SHORT OF BREATH/WHEEZING Last Admin: 06/20/16 21:43 Dose: 1 amp Artificial Tears (Artificial Tears) 1 drop OU QID PRN PRN Reason: DRY EYES Aspirin (Asa -) 81 mg PO DAILY [facility] Last Admin: 06/23/16 10:10 Dose: 81 mg Atorvastatin Calcium (Lipitor -) 20 mg PO HS [facility] Last Admin: 06/22/16 21:51 Dose: 20 mg Benzocaine/Menthol (Cepacol Lozenge -) 1 each MM Q4H PRN PRN Reason: SORE THROAT Last Admin: 06/17/16 05:45 Dose: 1 each Bisacodyl (Dulcolax -) 5 mg PO DAILY PRN PRN Reason: CONSTIPATION Last Admin: 06/23/16 10:22 Dose: 5 mg Budesonide/Formoterol Fumarate (Symbicort 160/4.5mcg -) 2 puff IH BID [facility] Last Admin: 06/23/16 10:13 Dose: 2 puff Carvedilol (Coreg -) 12.5 mg PO BID [facility] Last Admin: 06/23/16 10:11 Dose: 12.5 mg Clopidogrel Bisulfate (Plavix -) 75 mg PO DAILY [facility] Last Admin: 06/23/16 10:11 Dose: 75 mg Colchicine (Colcrys -) 0.6 mg PO DAILY [facility] Last Admin: 06/23/16 10:11 Dose: 0.6 mg Digoxin (Lanoxin -) 0.125 mg PO DAILY [facility] Last Admin: 06/23/16 10:11 Dose: 0.125 mg Divalproex Sodium (Depakote -) 500 mg PO BID [facility] Last Admin: 06/23/16 10:12 Dose: 500 mg Docusate Sodium (Colace -) 100 mg PO BID [facility] Last Admin: 06/23/16 10:12 Dose: 100 mg Enoxaparin Sodium (Lovenox -) 40 mg SQ DAILY [facility] Last Admin: 06/23/16 10:12 Dose: 40 mg Escitalopram Oxalate (Lexapro -) 20 mg PO DAILY [facility] Last Admin: 06/23/16 10:11 Dose: 20 mg Furosemide (Lasix -) 40 mg PO DAILY [facility] Last Admin: 06/23/16 10:11 Dose: 40 mg Glipizide (Glucotrol -) 5 mg PO ACBK [facility] Last Admin: 06/23/16 06:50 Dose: 5 mg Guaifenesin (Robitussin Dm -) 10 ml PO Q4H PRN PRN Reason: COUGH Last Admin: 06/23/16 06:50 Dose: 10 ml Insulin Aspart (Novolog Vial Sliding Scale -) 1 vial SQ TIDAC [facility] PRN Reason: Protocol Last Admin: 06/23/16 11:57 Dose: 6 units Insulin Detemir (Levemir Vial) 8 units SQ HS [facility] Last Admin: 06/22/16 21:49 Dose: 8 units Lisinopril (Prinivil) 5 mg PO DAILY [facility] Last Admin: 06/23/16 10:11 Dose: 5 mg Methylprednisolone Sodium Succinate (Solu-Medrol -) 40 mg IVPB BID [facility] Last Admin: 06/23/16 10:10 Dose: 40 mg Pantoprazole Sodium (Protonix -) 40 mg PO DAILY [facility] Last Admin: 06/23/16 10:11 Dose: 40 mg Polyethylene Glycol (Miralax (For Daily Use) -) 17 gm PO DAILY [facility] Last Admin: 06/23/16 10:17 Dose: Not Given Saliva Substitute (Mouthkote Solution -) 1 applic MM DAILY [facility] Last Admin: 06/23/16 10:17 Dose: 1 applic Sitagliptin Phosphate (Januvia -) 50 mg PO ACBK [facility] Last Admin: 06/23/16 06:50 Dose: 50 mg Spironolactone (Aldactone -) 25 mg PO DAILY [facility] Last Admin: 06/23/16 10:11 Dose: 25 mg Tiotropium [place] (Spiriva -) 1 puff IH DAILY [facility] Last Admin: 06/23/16 10:22 Dose: 1 puff Zolpidem Tartrate (Ambien -) 10 mg PO HS PRN PRN Reason: INSOMNIA Last Admin: 06/22/16 21:52 Dose: 10 mg - Objective Vital Signs: Vital Signs Temperature 98.6 F 06/23/16 09:54 Pulse Rate 74 06/23/16 10:11 Respiratory Rate 24 06/23/16 09:54 Blood Pressure 140/75 06/23/16 09:54 O2 Sat by Pulse Oximetry (%) 97 06/22/16 21:00 Eyes: Yes: WNL, Conjunctiva Clear, EOM Intact HENT: Yes: WNL, Atraumatic, Normocephalic Neck: Yes: WNL, Supple, Trachea Midline Cardiovascular: Yes: WNL, Regular Rate and Rhythm Respiratory: Yes: WNL, Regular, CTA Bilaterally Gastrointestinal: Yes: WNL, Normal Bowel Sounds Genitourinary: Yes: WNL Musculoskeletal: Yes: WNL Extremities: Yes: WNL Edema: No Integumentary: Yes: WNL Neurological: Yes: WNL, Alert, Oriented ...Motor Strength: WNL Psychiatric: Yes: WNL Labs: CBC, BMP 06/17/16 05:35 06/17/16 05:35 INR, PTT INR 1.22 (0.82-1.09) H 06/13/16 16:31 Assessment/Plan - Problems (1) COPD exacerbation Assessment/Plan: bronchodilators, steroids, and O2 per tin recovery worker. Code(s): J44.1 - CHRONIC OBSTRUCTIVE PULMONARY DISEASE W (ACUTE) EXACERBATION (2) Chest pain Assessment/Plan: non-obstructive CAD on most recent coronary angiogram. Continue anti-ischemic/CHF medications. On ASA and clopidogrel. Physical rehabilitaion. Code(s): R07.9 - CHEST PAIN, UNSPECIFIED Qualifiers: Chest pain type: unspecified Qualified Code(s): R07.9 - Chest pain, unspecified (3) Renal dysfunction Assessment/Plan: avoid dehydration (would discontinue furosemide); f/u BUN/Cr. Code(s): N28.9 - DISORDER OF KIDNEY AND URETER, UNSPECIFIED (4) Subconjunctival hemorrhage of left eye Code(s): H11.32 - CONJUNCTIVAL HEMORRHAGE, LEFT EYE (5) AA (alcohol abuse) Code(s): F10.10 - ALCOHOL ABUSE, UNCOMPLICATED (6) Atrial fibrillation Assessment/Plan: On carvedilol for AF HR control (as well as for severe systolic LV dysfunction and HTN). On ASA and clopidogrel (CAD and PAD); off systemic anticoagulant due to hx cerebral bleed. Code(s): I48.91 - UNSPECIFIED ATRIAL FIBRILLATION Qualifiers: Atrial fibrillation type: chronic Qualified Code(s): I48.2 - Chronic atrial fibrillation (7) Bipolar I disorder with depression Code(s): F31.9 - BIPOLAR DISORDER, UNSPECIFIED (8) Acute on chronic systolic (congestive) heart failure Assessment/Plan: Continue Coreg, lisinopril, Aldactone. On digoxin; keep level 0.5-1.0 (presently 0.7) Would discontinue furosemide (no JVD; CXR without acute changes; rising BUN). F/u K+ (presently 4.8); pt is on ACEI and spironolactone. Code(s): I50.23 - ACUTE ON CHRONIC SYSTOLIC (CONGESTIVE) HEART FAILURE
[2016-06-23] MEDS: INSULIN DETEMIR 100 UNITS/ML MDV SQ SCH (23:13)
[2016-06-23] MEDS: ATORVASTATIN CA 20 MG TABLET (FP) PO SCH (23:13)
[2016-06-23] MEDS: ZOLPIDEM TARTRATE 5 MG TABLET PO PRN (23:16)
[2016-06-24] MEDS: sitaGLIPtin PHOSPHATE 50 MG TABLET PO SCH (06:52)
[2016-06-24] MEDS: glipiZIDE 5 MG TABLET (FP) PO SCH (06:52)
[2016-06-24] MEDS: INSULIN SLIDING SCALE (NOVOLOG) 1 VIAL SQ SCH ×3 (06:54→17:54)
[2016-06-24] MEDS ORDERED: PT OWN MED DRAWER 7, Y5N ONE ×4 (10:01→20:54)
[2016-06-24] MEDS: DOCUSATE SODIUM 100 MG CAPSULE (FP) PO SCH ×2 (10:29→21:28)
[2016-06-24] MEDS: LISINOPRIL 5 MG TABLET (FP) PO SCH (10:29)
[2016-06-24] MEDS: CARVEDILOL 12.5 MG TABLET (FP) PO SCH ×2 (10:29→21:28)
[2016-06-24] MEDS: ENOXAPARIN NA (PORCINE) 40 MG/0.4 ML DISP.SYRIN SQ SCH (10:29)
[2016-06-24] MEDS: FUROSEMIDE 40 MG TABLET (FP) PO SCH (10:29)
[2016-06-24] MEDS: COLCHICINE 0.6 MG TABLET (FP) PO SCH (10:29)
[2016-06-24] MEDS: BISACODYL 5 MG TABLET.DR (FP) PO PRN (10:29)
[2016-06-24] MEDS: ESCITALOPRAM OXALATE 20 MG TABLET (FP) PO SCH (10:29)
[2016-06-24] MEDS: CLOPIDOGREL BISULFATE 75 MG TABLET (FP) PO SCH (10:30)
[2016-06-24] MEDS: ASPIRIN 81 MG CHEWABLE TABLETS PO SCH (10:30)
[2016-06-24] MEDS: PANTOPRAZOLE 40 MG TABLET (FP) PO SCH (10:30)
[2016-06-24] MEDS: SPIRONOLACTONE 25 MG TABLET (FP) PO SCH (10:30)
[2016-06-24] MEDS: DIGOXIN 0.125 MG TABLET (FP) PO SCH (10:30)
[2016-06-24] MEDS: methylPREDNISolone NA SUCC 40 MG/1 ML VIAL IVPB SCH (10:30)
[2016-06-24] MEDS: LYTES/YERBA SANTA 240 ML BOTTLE MM SCH (10:31)
[2016-06-24] MEDS: POLYETHYLENE GLYCOL 3350 119 GM BTL PO SCH (10:31)
[2016-06-24] MEDS: DIVALPROEX SODIUM 500 MG TABLET E.C. PO SCH ×2 (10:31→21:29)
[2016-06-24] MEDS: TIOTROPIUM BROMIDE 18 MCG/INH (DEVICE W/ 5 CAPSULES) IH SCH (10:32)
[2016-06-24] MEDS: BUDESONIDE/FORMETEROL FUMARATE 160/4.5 mcg INHALER IH SCH ×2 (10:32→21:37)
[2016-06-24] MEDS: ACETAMINOPHEN 325 MG TABLET (FP) PO PRN ×2 (10:51→21:30)
[2016-06-24] MEDS: guaiFENesin/D-METHORPHAN HB 10 ML UNIT-DOSE CUPS PO PRN ×3 (10:52→21:30)
--- NOTE | 2016-06-24 11:11 | PN ---
Progress Note (short form) - Note Progress Note: Feels much better Coughing is less Vital Signs - 24 hr 06/23/16 06/23/16 06/23/16 18:12 21:00 22:00 Temperature 98.2 F Pulse Rate 63 66 Respiratory 20 20 Rate Blood Pressure 116/55 109/52 O2 Sat by Pulse 96 Oximetry (%) 06/24/16 06/24/16 06/24/16 06:00 09:00 10:00 Temperature 98.0 F Pulse Rate 82 80 Respiratory 20 20 Rate Blood Pressure 124/52 128/68 O2 Sat by Pulse 96 Oximetry (%) 06/24/16 06/24/16 10:30 15:28 Temperature 98.2 F Pulse Rate 80 94 H Respiratory 20 Rate Blood Pressure 123/42 O2 Sat by Pulse Oximetry (%) Current Medications Generic Name Dose Route Start Last Admin Trade Name Freq PRN Reason Stop Dose Admin Acetaminophen 650 mg 06/14/16 01:07 06/24/16 10:51 Tylenol - PO 650 mg Q6H PRN Administration FEVER OR PAIN Artificial Tears 1 drop 06/22/16 11:11 Artificial Tears OU QID PRN DRY EYES Aspirin 81 mg 06/14/16 10:00 06/24/16 10:30 Asa - PO 81 mg DAILY [facility] Administration Atorvastatin Calcium 20 mg 06/13/16 22:00 06/23/16 23:13 Lipitor - PO 20 mg HS [facility] Administration Benzocaine/Menthol 1 each 06/16/16 09:27 06/17/16 05:45 Cepacol Lozenge - MM 1 each Q4H PRN Administration SORE THROAT Bisacodyl 5 mg 06/22/16 11:10 06/24/16 10:29 Dulcolax - PO 5 mg DAILY PRN Administration CONSTIPATION Budesonide/Formoterol Fumarate 2 puff 06/17/16 11:30 06/24/16 10:32 Symbicort 160/4.5mcg - IH 2 puff BID [facility] Administration Carvedilol 12.5 mg 06/13/16 22:00 06/24/16 10:29 Coreg - PO 12.5 mg BID [facility] Administration Clopidogrel Bisulfate 75 mg 06/14/16 10:00 06/24/16 10:30 Plavix - PO 75 mg DAILY [facility] Administration Colchicine 0.6 mg 06/14/16 10:00 06/24/16 10:29 Colcrys - PO 0.6 mg DAILY [facility] Administration Digoxin 0.125 mg 06/14/16 10:00 06/24/16 10:30 Lanoxin - PO 0.125 mg DAILY [facility] Administration Divalproex Sodium 500 mg 06/13/16 22:00 06/24/16 10:31 Depakote - PO 500 mg BID [facility] Administration Docusate Sodium 100 mg 06/13/16 22:00 06/24/16 10:29 Colace - PO 100 mg BID [facility] Administration Enoxaparin Sodium 40 mg 06/21/16 10:00 06/24/16 10:29 Lovenox - SQ 40 mg DAILY [facility] Administration Escitalopram Oxalate 20 mg 06/14/16 10:00 06/24/16 10:29 Lexapro - PO 20 mg DAILY [facility] Administration Furosemide 40 mg 06/14/16 10:00 06/24/16 10:29 Lasix - PO 40 mg DAILY [facility] Administration Glipizide 5 mg 06/14/16 07:00 06/24/16 06:52 Glucotrol - PO 5 mg ACBK [facility] Administration Guaifenesin 10 ml 06/17/16 10:07 06/24/16 15:06 Robitussin Dm - PO 10 ml Q4H PRN Administration COUGH Insulin Aspart 1 vial 06/14/16 07:00 06/24/16 11:27 Novolog Vial Sliding Scale - SQ 6 units TIDAC [facility] Administration Protocol Insulin Detemir 8 units 06/16/16 22:00 06/23/16 23:13 Levemir Vial SQ 8 units HS [facility] Administration Lisinopril 5 mg 06/14/16 10:00 06/24/16 10:29 Prinivil PO 5 mg DAILY [facility] Administration Pantoprazole Sodium 40 mg 06/14/16 10:00 06/24/16 10:30 Protonix - PO 40 mg DAILY [facility] Administration Polyethylene Glycol 17 gm 06/14/16 10:30 06/24/16 10:31 Miralax (For Daily Use) - PO Not Given DAILY [facility] Prednisone 40 mg 06/24/16 22:00 Deltasone - PO BID [facility] Saliva Substitute 1 applic 06/17/16 13:30 06/24/16 10:31 Mouthkote Solution - MM 1 applic DAILY [facility] Administration Sitagliptin Phosphate 50 mg 06/14/16 07:00 06/24/16 06:52 Januvia - PO 50 mg ACBK [facility] Administration Spironolactone 25 mg 06/14/16 10:00 06/24/16 10:30 Aldactone - PO 25 mg DAILY [facility] Administration Tiotropium [place] 1 puff 06/22/16 10:45 06/24/16 10:32 Spiriva - IH 1 puff DAILY [facility] Administration Zolpidem Tartrate 10 mg 06/22/16 21:15 06/23/16 23:16 Ambien - PO 10 mg HS PRN Administration INSOMNIA Laboratory Results - last 24 hr 06/23/16 06/24/16 06/24/16 17:46 06:54 11:21 POC Glucometer 139 270 299 S1 S2 RRR Lungs ronchi decreased Abd- soft, obese, NT, BS+ No edema awake and alert PLAN change Solumedrol to prednisone OOB daily Pt is ambulating without difficulty Continue with meds dc planning-- spoke with spring encaser-- pt is looking for a housing facility where she can stay in the community , she does not want to go for STR DVT prophylaxis-- Lovenox Problem List - Problems (1) COPD exacerbation Code(s): J44.1 - CHRONIC OBSTRUCTIVE PULMONARY DISEASE W (ACUTE) EXACERBATION (2) Chest pain Code(s): R07.9 - CHEST PAIN, UNSPECIFIED Qualifiers: Chest pain type: unspecified Qualified Code(s): R07.9 - Chest pain, unspecified (3) NSTEMI (non-ST elevated myocardial infarction) Code(s): I21.4 - NON-ST ELEVATION (NSTEMI) MYOCARDIAL INFARCTION (4) Atrial fibrillation Code(s): I48.91 - UNSPECIFIED ATRIAL FIBRILLATION Qualifiers: Atrial fibrillation type: chronic Qualified Code(s): I48.2 - Chronic atrial fibrillation
[2016-06-24] MEDS ORDERED: INSULIN (NOVOLOG) ASPART 100 UNITS/ML 10ML VIAL ONE (11:24)
--- NOTE | 2016-06-24 12:51 | PN ---
Progress Note, Physician History of Present Illness: PULMONARY ALERT,FEELING BETTER,LESS CONGESTED - Current Medication List Current Medications: Active Medications Acetaminophen (Tylenol -) 650 mg PO Q6H PRN PRN Reason: FEVER OR PAIN Last Admin: 06/24/16 10:51 Dose: 650 mg Artificial Tears (Artificial Tears) 1 drop OU QID PRN PRN Reason: DRY EYES Aspirin (Asa -) 81 mg PO DAILY [facility] Last Admin: 06/24/16 10:30 Dose: 81 mg Atorvastatin Calcium (Lipitor -) 20 mg PO HS [facility] Last Admin: 06/23/16 23:13 Dose: 20 mg Benzocaine/Menthol (Cepacol Lozenge -) 1 each MM Q4H PRN PRN Reason: SORE THROAT Last Admin: 06/17/16 05:45 Dose: 1 each Bisacodyl (Dulcolax -) 5 mg PO DAILY PRN PRN Reason: CONSTIPATION Last Admin: 06/24/16 10:29 Dose: 5 mg Budesonide/Formoterol Fumarate (Symbicort 160/4.5mcg -) 2 puff IH BID [facility] Last Admin: 06/24/16 10:32 Dose: 2 puff Carvedilol (Coreg -) 12.5 mg PO BID [facility] Last Admin: 06/24/16 10:29 Dose: 12.5 mg Clopidogrel Bisulfate (Plavix -) 75 mg PO DAILY [facility] Last Admin: 06/24/16 10:30 Dose: 75 mg Colchicine (Colcrys -) 0.6 mg PO DAILY [facility] Last Admin: 06/24/16 10:29 Dose: 0.6 mg Digoxin (Lanoxin -) 0.125 mg PO DAILY [facility] Last Admin: 06/24/16 10:30 Dose: 0.125 mg Divalproex Sodium (Depakote -) 500 mg PO BID [facility] Last Admin: 06/24/16 10:31 Dose: 500 mg Docusate Sodium (Colace -) 100 mg PO BID [facility] Last Admin: 06/24/16 10:29 Dose: 100 mg Enoxaparin Sodium (Lovenox -) 40 mg SQ DAILY [facility] Last Admin: 06/24/16 10:29 Dose: 40 mg Escitalopram Oxalate (Lexapro -) 20 mg PO DAILY [facility] Last Admin: 06/24/16 10:29 Dose: 20 mg Furosemide (Lasix -) 40 mg PO DAILY [facility] Last Admin: 06/24/16 10:29 Dose: 40 mg Glipizide (Glucotrol -) 5 mg PO ACBK [facility] Last Admin: 06/24/16 06:52 Dose: 5 mg Guaifenesin (Robitussin Dm -) 10 ml PO Q4H PRN PRN Reason: COUGH Last Admin: 06/24/16 10:52 Dose: 10 ml Insulin Aspart (Novolog Vial Sliding Scale -) 1 vial SQ TIDAC [facility] PRN Reason: Protocol Last Admin: 06/24/16 11:27 Dose: 6 units Insulin Detemir (Levemir Vial) 8 units SQ HS [facility] Last Admin: 06/23/16 23:13 Dose: 8 units Lisinopril (Prinivil) 5 mg PO DAILY [facility] Last Admin: 06/24/16 10:29 Dose: 5 mg Pantoprazole Sodium (Protonix -) 40 mg PO DAILY [facility] Last Admin: 06/24/16 10:30 Dose: 40 mg Polyethylene Glycol (Miralax (For Daily Use) -) 17 gm PO DAILY [facility] Last Admin: 06/24/16 10:31 Dose: Not Given Prednisone (Deltasone -) 40 mg PO BID [facility] Saliva Substitute (Mouthkote Solution -) 1 applic MM DAILY [facility] Last Admin: 06/24/16 10:31 Dose: 1 applic Sitagliptin Phosphate (Januvia -) [facility] Last Admin: 06/24/16 06:52 Dose: 50 mg Spironolactone (Aldactone -) 25 mg PO DAILY [facility] Last Admin: 06/24/16 10:30 Dose: 25 mg Tiotropium [place] (Spiriva -) 1 puff IH DAILY [facility] Last Admin: 06/24/16 10:32 Dose: 1 puff Zolpidem Tartrate (Ambien -) 10 mg PO HS PRN PRN Reason: INSOMNIA Last Admin: 06/23/16 23:16 Dose: 10 mg - Objective Vital Signs: Vital Signs Temperature 98.0 F 06/24/16 06:00 Pulse Rate 80 06/24/16 10:30 Respiratory Rate 20 06/24/16 06:00 Blood Pressure 124/52 06/24/16 06:00 O2 Sat by Pulse Oximetry (%) 96 06/23/16 21:00 Constitutional: Yes: Well Nourished, Calm Eyes: Yes: WNL HENT: Yes: WNL Neck: Yes: WNL Cardiovascular: Yes: Regular Rate and Rhythm, S1, S2 Respiratory: Yes: Wheezes (FEW WHEEEZES) Gastrointestinal: Yes: Normal Bowel Sounds, Soft Extremities: Yes: WNL Edema: Yes Labs: CBC, BMP Problem List - Problems (1) Acute on chronic systolic (congestive) heart failure Code(s): I50.23 - ACUTE ON CHRONIC SYSTOLIC (CONGESTIVE) HEART FAILURE (2) COPD exacerbation Code(s): J44.1 - CHRONIC OBSTRUCTIVE PULMONARY DISEASE W (ACUTE) EXACERBATION (3) Chest pain Code(s): R07.9 - CHEST PAIN, UNSPECIFIED Qualifiers: Chest pain type: unspecified Qualified Code(s): R07.9 - Chest pain, unspecified (4) Renal dysfunction Code(s): N28.9 - DISORDER OF KIDNEY AND URETER, UNSPECIFIED (5) AA (alcohol abuse) Code(s): F10.10 - ALCOHOL ABUSE, UNCOMPLICATED (6) Atrial fibrillation Code(s): I48.91 - UNSPECIFIED ATRIAL FIBRILLATION Qualifiers: Atrial fibrillation type: chronic Qualified Code(s): I48.2 - Chronic atrial fibrillation (7) Brain aneurysm Code(s): I67.1 - CEREBRAL ANEURYSM, NONRUPTURED (9) Atrial fibrillation with normal ventricular rate Code(s): I48.91 - UNSPECIFIED ATRIAL FIBRILLATION (10) Atypical chest pain Code(s): R07.89 - OTHER CHEST PAIN (11) Bipolar I disorder with depression Code(s): F31.9 - BIPOLAR DISORDER, UNSPECIFIED (12) Arteriosclerosis of coronary artery in patient with history of myocardial infarction Code(s): I25.10 - ATHSCL HEART DISEASE OF [place] CORONARY ARTERY W/O ANG PCTRS I25.2 - OLD MYOCARDIAL INFARCTION (13) Chronic bronchitis Code(s): J42 - UNSPECIFIED CHRONIC BRONCHITIS Qualifiers: Chronic bronchitis type: unspecified Qualified Code(s): J42 - Unspecified chronic bronchitis (14) HLD (hyperlipidemia) Code(s): E78.5 - HYPERLIPIDEMIA, UNSPECIFIED (15) HTN (hypertension) Code(s): I10 - ESSENTIAL (PRIMARY) HYPERTENSION Qualifiers: Hypertension type: essential hypertension Qualified Code(s): I10 - Essential (primary) hypertension (16) Neurogenic bladder Code(s): N31.9 - NEUROMUSCULAR DYSFUNCTION OF BLADDER, UNSPECIFIED (17) Obesity Code(s): E66.9 - OBESITY, UNSPECIFIED Qualifiers: Obesity type: due to excess calories Obesity severity: non-morbid Qualified Code(s): E66.09 - Other obesity due to excess calories (18) COPD (chronic obstructive pulmonary disease) Code(s): J44.9 - CHRONIC OBSTRUCTIVE PULMONARY DISEASE, UNSPECIFIED Assessment/Plan IMP COPD EXACERBATION IMPROVING CHF improvig SEVERE LV DYSFUNCTION S/P ICD ASHD S/P MO X 3 AFIB DM HTN HLD H/O SMOKING H/O CASHIER TICKET SELLING BLEED H/O ETOH BIPOLAR PLAN PREDNISONE INHALED BRONCHODILATORS NASAL O2 LASIX PFTS 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
--- NOTE | 2016-06-24 14:32 | PN ---
Physical Exam: SUBJECTIVE: Patient seen and examined Patient resting in bed NAD. No acute events overnight. Afebrile and hemodynamically stable. States she feels well. Ambulating down hallway without O2, no SOB. Uses NC rarely when coughing and at night. Deneis chest pain, f/c, n /c, abd pain, diarrhea or constipation. OBJECTIVE: Vital Signs Period Temp Pulse Resp BP Sys/Bernard Pulse Ox Last 24 Hr 98.0 F-98.9 F 63-82 20-20 109-124/52-55 96 GENERAL: The patient is awake, alert, and fully oriented, in no acute distress. HEAD: Normal with no signs of trauma. EYES: PERRL, extraocular movements intact, sclera anicteric, conjunctiva clear. ENT: moist mucous membranes. NECK: supple. LUNGS: bronchial ronchi, mild wheezing HEART: rate controlled, irregularly irregular, S1, S2 ABDOMEN: Soft, nontender, nondistended, normoactive bowel sounds EXTREMITIES: 2+ pulses, warm, well-perfused, no edema. NEUROLOGICAL: Cranial nerves II through XII grossly intact. Normal speech, gait not observed. PSYCH: Normal mood, normal affect. SKIN: Warm, dry Laboratory Results - last 24 hr 06/23/16 06/24/16 06/24/16 17:46 06:54 11:21 POC Glucometer 139 270 299 Active Medications Generic Name Dose Route Start Last Admin Trade Name Freq PRN Reason Stop Dose Admin Acetaminophen 650 mg 06/14/16 01:07 06/24/16 10:51 Tylenol - PO 650 mg Q6H PRN Administration FEVER OR PAIN Artificial Tears 1 drop 06/22/16 11:11 Artificial Tears OU QID PRN DRY EYES Aspirin 81 mg 06/14/16 10:00 06/24/16 10:30 Asa - PO 81 mg DAILY [facility] Administration Atorvastatin Calcium 20 mg 06/13/16 22:00 06/23/16 23:13 Lipitor - PO 20 mg HS [facility] Administration Benzocaine/Menthol 1 each 06/16/16 09:27 06/17/16 05:45 Cepacol Lozenge - MM 1 each Q4H PRN Administration SORE THROAT Bisacodyl 5 mg 06/22/16 11:10 06/24/16 10:29 Dulcolax - PO 5 mg DAILY PRN Administration CONSTIPATION Budesonide/Formoterol Fumarate 2 puff 06/17/16 11:30 06/24/16 10:32 Symbicort 160/4.5mcg - IH 2 puff BID [facility] Administration Carvedilol 12.5 mg 06/13/16 22:00 06/24/16 10:29 Coreg - PO 12.5 mg BID [facility] Administration Clopidogrel Bisulfate 75 mg 06/14/16 10:00 06/24/16 10:30 Plavix - PO 75 mg DAILY [facility] Administration Colchicine 0.6 mg 06/14/16 10:00 06/24/16 10:29 Colcrys - PO 0.6 mg DAILY [facility] Administration Digoxin 0.125 mg 06/14/16 10:00 06/24/16 10:30 Lanoxin - PO 0.125 mg DAILY [facility] Administration Divalproex Sodium 500 mg 06/13/16 22:00 06/24/16 10:31 Depakote - PO 500 mg BID [facility] Administration Docusate Sodium 100 mg 06/13/16 22:00 06/24/16 10:29 Colace - PO 100 mg BID [facility] Administration Enoxaparin Sodium 40 mg 06/21/16 10:00 06/24/16 10:29 Lovenox - SQ 40 mg DAILY [facility] Administration Escitalopram Oxalate 20 mg 06/14/16 10:00 06/24/16 10:29 Lexapro - PO 20 mg DAILY [facility] Administration Furosemide 40 mg 06/14/16 10:00 06/24/16 10:29 Lasix - PO 40 mg DAILY [facility] Administration Glipizide 5 mg 06/14/16 07:00 06/24/16 06:52 Glucotrol - PO 5 mg ACBK [facility] Administration Guaifenesin 10 ml 06/17/16 10:07 06/24/16 10:52 Robitussin Dm - PO 10 ml Q4H PRN Administration COUGH Insulin Aspart 1 vial 06/14/16 07:00 06/24/16 11:27 Novolog Vial Sliding Scale - SQ 6 units TIDAC [facility] Administration Protocol Insulin Detemir 8 units 06/16/16 22:00 06/23/16 23:13 Levemir Vial SQ 8 units HS [facility] Administration Lisinopril 5 mg 06/14/16 10:00 06/24/16 10:29 Prinivil PO 5 mg DAILY [facility] Administration Pantoprazole Sodium 40 mg 06/14/16 10:00 06/24/16 10:30 Protonix - PO 40 mg DAILY [facility] Administration Polyethylene Glycol 17 gm 06/14/16 10:30 06/24/16 10:31 Miralax (For Daily Use) - PO Not Given DAILY [facility] Prednisone 40 mg 06/24/16 22:00 Deltasone - PO BID [facility] Saliva Substitute 1 applic 06/17/16 13:30 06/24/16 10:31 Mouthkote Solution - MM 1 applic DAILY [facility] Administration Sitagliptin Phosphate 50 mg 06/14/16 07:00 06/24/16 06:52 Januvia - PO 50 mg ACBK [facility] Administration Spironolactone 25 mg 06/14/16 10:00 06/24/16 10:30 Aldactone - PO 25 mg DAILY [facility] Administration Tiotropium [place] 1 puff 06/22/16 10:45 06/24/16 10:32 Spiriva - IH 1 puff DAILY [facility] Administration Zolpidem Tartrate 10 mg 06/22/16 21:15 06/23/16 23:16 Ambien - PO 10 mg HS PRN Administration INSOMNIA ASSESSMENT/PLAN: Acute on Chronic COPD exacerbation -symptomatic improvement -CT chest no acute process -NC O2 as needed -symbicort, spiriva, albuterol -stop steroids -abx not indicated -pre/post exercise O2 measurement before d/c -outpatient sleep study systolic CHF -s/p ICD -stable Afib -rate controlled -continue plavix HTN -continue home meds HLD -continue home meds DM -tight glycemic control while on steroids Problem List - Problems (1) COPD (chronic obstructive pulmonary disease) Code(s): J44.9 - CHRONIC OBSTRUCTIVE PULMONARY DISEASE, UNSPECIFIED (2) COPD exacerbation Code(s): J44.1 - CHRONIC OBSTRUCTIVE PULMONARY DISEASE W (ACUTE) EXACERBATION (3) Atrial fibrillation Code(s): I48.91 - UNSPECIFIED ATRIAL FIBRILLATION Qualifiers: Atrial fibrillation type: chronic Qualified Code(s): I48.2 - Chronic atrial fibrillation (4) Atrial fibrillation with normal ventricular rate Code(s): I48.91 - UNSPECIFIED ATRIAL FIBRILLATION (5) Bipolar I disorder with depression Code(s): F31.9 - BIPOLAR DISORDER, UNSPECIFIED (6) DVT prophylaxis Code(s): [id number] - (7) Bipolar disorder Code(s): F31.9 - BIPOLAR DISORDER, UNSPECIFIED Qualifiers: Current episode severity: unspecified (8) Diabetes Code(s): E11.9 - TYPE 2 DIABETES MELLITUS WITHOUT COMPLICATIONS Qualifiers: Diabetes mellitus type: type 2 Diabetes mellitus complication status: with unspecified complications (9) HLD (hyperlipidemia) Code(s): E78.5 - HYPERLIPIDEMIA, UNSPECIFIED (10) HTN (hypertension) Code(s): I10 - ESSENTIAL (PRIMARY) HYPERTENSION Qualifiers: Hypertension type: essential hypertension Qualified Code(s): I10 - Essential (primary) hypertension (11) Obesity Code(s): E66.9 - OBESITY, UNSPECIFIED Qualifiers: Obesity type: due to excess calories Obesity severity: non-morbid Qualified Code(s): E66.09 - Other obesity due to excess calories (12) Systolic CHF Code(s): I50.20 - UNSPECIFIED SYSTOLIC (CONGESTIVE) HEART FAILURE Qualifiers: Congestive heart failure chronicity: unspecified congestive heart failure chronicity Qualified Code(s): I50.20 - Unspecified systolic (congestive) heart failure Visit type - Emergency Visit Emergency Visit: Yes ED Registration Date: 06/13/16 Care time: The patient presented to the Emergency Department on the above date and was hospitalized for further evaluation of their emergent condition. - New Patient This patient is new to me today: No - Critical Care Critical Care patient: No - Discharge Referral Referred to [facility] No
[2016-06-24] MEDS: predniSONE 20 MG TABLET (UD) PO SCH (21:28)
[2016-06-24] MEDS: ATORVASTATIN CA 20 MG TABLET (FP) PO SCH (21:29)
[2016-06-24] MEDS: ZOLPIDEM TARTRATE 5 MG TABLET PO PRN (21:29)
[2016-06-24] MEDS: INSULIN DETEMIR 100 UNITS/ML MDV SQ SCH (21:31)
--- NOTE | 2016-06-24 22:15 | PN ---
Progress Note, Physician Chief Complaint: Pt A&Ox3; denies chest pain or dyspnea. History of Present Illness: The patient is a 70 year old black female, with a significant past medical history of cerebral aneurysm s/p bleed s/p repair (06/2015), HLD, HTN, DM, CAD s/ p MIs, diastolic CHF, pacemaker, Afib on asa and plavix, who presents to the emergency department from [facility] with SOB and cough for 2 weeks. She reports having tightness and soreness in her chest whenever she coughs. She denies any chest pain when she does not cough. She reports having decreased appetite. Patient also notes having chills and being weak since being symptomatic. She reports having a neb treatment with no significant improvement at her HI. She denies recent fevers, headache or dizziness. She denies recent nausea, vomit, diarrhea or constipation. She denies recent dysuria, frequency, urgency or hematuria. +sick contacts at [facility] Allergies: NKA Social history: Former Smoker; ETOH abuse. PCP: CARDIO: - Current Medication List Current Medications: Active Medications Acetaminophen (Tylenol -) 650 mg PO Q6H PRN PRN Reason: FEVER OR PAIN Last Admin: 06/24/16 21:30 Dose: 650 mg Artificial Tears (Artificial Tears) 1 drop OU QID PRN PRN Reason: DRY EYES Aspirin (Asa -) 81 mg PO DAILY [facility] Last Admin: 06/24/16 10:30 Dose: 81 mg Atorvastatin Calcium (Lipitor -) 20 mg PO HS [facility] Last Admin: 06/24/16 21:29 Dose: 20 mg Benzocaine/Menthol (Cepacol Lozenge -) 1 each MM Q4H PRN PRN Reason: SORE THROAT Last Admin: 06/17/16 05:45 Dose: 1 each Bisacodyl (Dulcolax -) 5 mg PO DAILY PRN PRN Reason: CONSTIPATION Last Admin: 06/24/16 10:29 Dose: 5 mg Budesonide/Formoterol Fumarate (Symbicort 160/4.5mcg -) 2 puff IH BID [facility] Last Admin: 06/24/16 21:37 Dose: 2 puff Carvedilol (Coreg -) 12.5 mg PO BID [facility] Last Admin: 06/24/16 21:28 Dose: 12.5 mg Clopidogrel Bisulfate (Plavix -) 75 mg PO DAILY [facility] Last Admin: 06/24/16 10:30 Dose: 75 mg Colchicine (Colcrys -) 0.6 mg PO DAILY [facility] Last Admin: 06/24/16 10:29 Dose: 0.6 mg Digoxin (Lanoxin -) 0.125 mg PO DAILY [facility] Last Admin: 06/24/16 10:30 Dose: 0.125 mg Divalproex Sodium (Depakote -) 500 mg PO BID [facility] Last Admin: 06/24/16 21:29 Dose: 500 mg Docusate Sodium (Colace -) 100 mg PO BID [facility] Last Admin: 06/24/16 21:28 Dose: 100 mg Enoxaparin Sodium (Lovenox -) 40 mg SQ DAILY [facility] Last Admin: 06/24/16 10:29 Dose: 40 mg Escitalopram Oxalate (Lexapro -) 20 mg PO DAILY [facility] Last Admin: 06/24/16 10:29 Dose: 20 mg Furosemide (Lasix -) 40 mg PO DAILY [facility] Last Admin: 06/24/16 10:29 Dose: 40 mg Glipizide (Glucotrol -) 5 mg PO ACBK [facility] Last Admin: 06/24/16 06:52 Dose: 5 mg Guaifenesin (Robitussin Dm -) 10 ml PO Q4H PRN PRN Reason: COUGH Last Admin: 06/24/16 21:30 Dose: 10 ml Insulin Aspart (Novolog Vial Sliding Scale -) 1 vial SQ TIDAC [facility] PRN Reason: Protocol Last Admin: 06/24/16 17:54 Dose: 6 units Insulin Detemir (Levemir Vial) 8 units SQ HS [facility] Last Admin: 06/24/16 21:31 Dose: 8 units Lisinopril (Prinivil) 5 mg PO DAILY [facility] Last Admin: 06/24/16 10:29 Dose: 5 mg Pantoprazole Sodium (Protonix -) 40 mg PO DAILY [facility] Last Admin: 06/24/16 10:30 Dose: 40 mg Polyethylene Glycol (Miralax (For Daily Use) -) 17 gm PO DAILY [facility] Last Admin: 06/24/16 10:31 Dose: Not Given Prednisone (Deltasone -) 40 mg PO BID [facility] Last Admin: 06/24/16 21:28 Dose: 40 mg Saliva Substitute (Mouthkote Solution -) 1 applic MM DAILY [facility] Last Admin: 06/24/16 10:31 Dose: 1 applic Sitagliptin Phosphate (Januvia -) 50 mg PO ACBK [facility] Last Admin: 06/24/16 06:52 Dose: 50 mg Spironolactone (Aldactone -) 25 mg PO DAILY [facility] Last Admin: 06/24/16 10:30 Dose: 25 mg Tiotropium [place] (Spiriva -) 1 puff IH DAILY [facility] Last Admin: 06/24/16 10:32 Dose: 1 puff Zolpidem Tartrate (Ambien -) 10 mg PO HS PRN PRN Reason: INSOMNIA Last Admin: 06/24/16 21:29 Dose: 10 mg - Objective Vital Signs: Vital Signs Temperature 97.7 F 06/24/16 17:35 Pulse Rate 85 06/24/16 21:33 Respiratory Rate 20 06/24/16 21:33 Blood Pressure 111/50 06/24/16 21:33 O2 Sat by Pulse Oximetry (%) 96 06/24/16 09:00 Constitutional: Yes: No Distress Eyes: Yes: WNL HENT: Yes: WNL Neck: Yes: WNL Cardiovascular: Yes: Pulse Irregular Respiratory: Yes: Regular Gastrointestinal: Yes: Soft ...Rectal Exam: Yes: Deferred Genitourinary: No: Anuria Breast(s): Yes: WNL Extremities: Yes: WNL Edema: No Peripheral Pulses WNL: Yes Integumentary: Yes: WNL Neurological: Yes: WNL Psychiatric: Yes: Other Labs: CBC, BMP 06/17/16 05:35 06/17/16 05:35 INR, PTT INR 1.22 (0.82-1.09) H 06/13/16 16:31 Problem List - Problems (1) COPD exacerbation Assessment/Plan: bronchodilators, steroids, and O2 per carousel attendant. Code(s): J44.1 - CHRONIC OBSTRUCTIVE PULMONARY DISEASE W (ACUTE) EXACERBATION (2) Chest pain Assessment/Plan: non-obstructive CAD on most recent coronary angiogram. Continue anti-ischemic/CHF medications. On ASA and clopidogrel. Physical rehabilitaion. Code(s): R07.9 - CHEST PAIN, UNSPECIFIED Qualifiers: Chest pain type: unspecified Qualified Code(s): R07.9 - Chest pain, unspecified (3) Renal dysfunction Assessment/Plan: avoid dehydration (would discontinue furosemide); f/u BUN/Cr, Is and Os (also on aldactone). Code(s): N28.9 - DISORDER OF KIDNEY AND URETER, UNSPECIFIED (4) Subconjunctival hemorrhage of left eye Code(s): H11.32 - CONJUNCTIVAL HEMORRHAGE, LEFT EYE (5) AA (alcohol abuse) Code(s): F10.10 - ALCOHOL ABUSE, UNCOMPLICATED (6) Atrial fibrillation Assessment/Plan: On carvedilol for AF HR control (as well as for severe systolic LV dysfunction and HTN). On ASA and clopidogrel (CAD and PAD); off systemic anticoagulant due to hx cerebral bleed. Code(s): I48.91 - UNSPECIFIED ATRIAL FIBRILLATION Qualifiers: Atrial fibrillation type: chronic Qualified Code(s): I48.2 - Chronic atrial fibrillation (7) Bipolar I disorder with depression Code(s): F31.9 - BIPOLAR DISORDER, UNSPECIFIED (8) Acute on chronic systolic (congestive) heart failure Assessment/Plan: Continue Coreg, lisinopril, Aldactone. On digoxin; keep level 0.5-1.0 (presently 0.7) Would discontinue furosemide (no JVD; CXR without acute changes; CT chest without definite infiltrates; rising BUN). F/u K+; pt is on both ACEI and spironolactone. Code(s): I50.23 - ACUTE ON CHRONIC SYSTOLIC (CONGESTIVE) HEART FAILURE
[2016-06-25] MEDS ORDERED: PT OWN MED DRAWER 7, Y5N ONE ×3 (05:44→09:31)
[2016-06-25] MEDS: sitaGLIPtin PHOSPHATE 50 MG TABLET PO SCH (06:11)
[2016-06-25] MEDS: guaiFENesin/D-METHORPHAN HB 10 ML UNIT-DOSE CUPS PO PRN ×2 (06:11→16:20)
[2016-06-25] MEDS: glipiZIDE 5 MG TABLET (FP) PO SCH (06:11)
[2016-06-25] MEDS: INSULIN SLIDING SCALE (NOVOLOG) 1 VIAL SQ SCH ×2 (06:13→12:11)
[2016-06-25] MEDS ORDERED: INSULIN (NOVOLOG) ASPART 100 UNITS/ML 10ML VIAL ONE ×2 (06:46→12:08)
[2016-06-25 06:58] LABS: MCH 26.6 pg (25.7-33.7); MCHC 32.1 g/dl (32.0-36.0); MEAN PLT VOLUME 11.4 fl (7.5-11.1); PLATELET COUNT 167 K/MM3 (134-434); RDW 19.9 % (11.6-15.6); WHITE BLOOD COUNT 11.5 K/mm3 (4.0-10.0)
[2016-06-25 07:26] LABS: ALBUMIN 2.9 g/dl (3.4-5.0); ANION GAP 5 (8-16); CALCIUM 8.8 mg/dL (8.5-10.1); CO2 34 mmol/L (21-32); CREATININE 0.9 mg/dL (0.55-1.02); SGOT/AST 27 U/L (15-37); SGPT/ALT 50 U/L (12-78)
[2016-06-25 07:29] LABS: ALK PHOS 137 U/L (45-117); BILIRUBIN,TOTAL 0.5 mg/dL (0.2-1.0); TOT PROT 5.9 g/dl (6.4-8.2)
[2016-06-25 07:42] LABS: GLUCOSE,RANDOM 326 mg/dL (74-106)
[2016-06-25] MEDS: ASPIRIN 81 MG CHEWABLE TABLETS PO SCH (09:33)
[2016-06-25] MEDS: SPIRONOLACTONE 25 MG TABLET (FP) PO SCH (09:33)
[2016-06-25] MEDS: DOCUSATE SODIUM 100 MG CAPSULE (FP) PO SCH (09:33)
[2016-06-25] MEDS: COLCHICINE 0.6 MG TABLET (FP) PO SCH (09:34)
[2016-06-25] MEDS: CARVEDILOL 12.5 MG TABLET (FP) PO SCH (09:34)
[2016-06-25] MEDS: predniSONE 20 MG TABLET (UD) PO SCH (09:34)
[2016-06-25] MEDS: DIVALPROEX SODIUM 500 MG TABLET E.C. PO SCH (09:35)
[2016-06-25] MEDS: DIGOXIN 0.125 MG TABLET (FP) PO SCH (09:35)
[2016-06-25] MEDS: FUROSEMIDE 40 MG TABLET (FP) PO SCH (09:36)
[2016-06-25] MEDS: ESCITALOPRAM OXALATE 20 MG TABLET (FP) PO SCH (09:37)
[2016-06-25] MEDS: ENOXAPARIN NA (PORCINE) 40 MG/0.4 ML DISP.SYRIN SQ SCH (09:37)
[2016-06-25] MEDS: PANTOPRAZOLE 40 MG TABLET (FP) PO SCH (09:38)
[2016-06-25] MEDS: LISINOPRIL 5 MG TABLET (FP) PO SCH (09:38)
[2016-06-25] MEDS: CLOPIDOGREL BISULFATE 75 MG TABLET (FP) PO SCH (09:38)
[2016-06-25] MEDS: POLYETHYLENE GLYCOL 3350 119 GM BTL PO SCH (09:38)
[2016-06-25] MEDS: BUDESONIDE/FORMETEROL FUMARATE 160/4.5 mcg INHALER IH SCH (09:39)
[2016-06-25] MEDS: LYTES/YERBA SANTA 240 ML BOTTLE MM SCH (09:40)
[2016-06-25] MEDS: TIOTROPIUM BROMIDE 18 MCG/INH (DEVICE W/ 5 CAPSULES) IH SCH (09:41)
[2016-06-25] MEDS: ACETAMINOPHEN 325 MG TABLET (FP) PO PRN ×2 (10:04→16:20)
--- NOTE | 2016-06-25 10:27 | PN ---
[id number]: Active Medications Acetaminophen (Tylenol -) 650 mg PO Q6H PRN PRN Reason: FEVER OR PAIN Last Admin: 06/25/16 10:04 Dose: 650 mg Artificial Tears (Artificial Tears) 1 drop OU QID PRN PRN Reason: DRY EYES Aspirin (Asa -) 81 mg PO DAILY [facility] Last Admin: 06/25/16 09:33 Dose: 81 mg Atorvastatin Calcium (Lipitor -) 20 mg PO HS [facility] Last Admin: 06/24/16 21:29 Dose: 20 mg Benzocaine/Menthol (Cepacol Lozenge -) 1 each MM Q4H PRN PRN Reason: SORE THROAT Last Admin: 06/17/16 05:45 Dose: 1 each Bisacodyl (Dulcolax -) 5 mg PO DAILY PRN PRN Reason: CONSTIPATION Last Admin: 06/24/16 10:29 Dose: 5 mg Budesonide/Formoterol Fumarate (Symbicort 160/4.5mcg -) 2 puff IH BID [facility] Last Admin: 06/25/16 09:39 Dose: 2 puff Carvedilol (Coreg -) 12.5 mg PO BID [facility] Last Admin: 06/25/16 09:34 Dose: 12.5 mg Clopidogrel Bisulfate (Plavix -) 75 mg PO DAILY [facility] Last Admin: 06/25/16 09:38 Dose: 75 mg Colchicine (Colcrys -) 0.6 mg PO DAILY [facility] Last Admin: 06/25/16 09:34 Dose: 0.6 mg Digoxin (Lanoxin -) 0.125 mg PO DAILY [facility] Last Admin: 06/25/16 09:35 Dose: 0.125 mg Divalproex Sodium (Depakote -) 500 mg PO BID [facility] Last Admin: 06/25/16 09:35 Dose: 500 mg Docusate Sodium (Colace -) 100 mg PO BID [facility] Last Admin: 06/25/16 09:33 Dose: 100 mg Enoxaparin Sodium (Lovenox -) 40 mg SQ DAILY [facility] Last Admin: 06/25/16 09:37 Dose: 40 mg Escitalopram Oxalate (Lexapro -) 20 mg PO DAILY [facility] Last Admin: 06/25/16 09:37 Dose: 20 mg Furosemide (Lasix -) 40 mg PO DAILY [facility] Last Admin: 06/25/16 09:36 Dose: 40 mg Glipizide (Glucotrol -) 5 mg PO ACBK [facility] Last Admin: 06/25/16 06:11 Dose: 5 mg Guaifenesin (Robitussin Dm -) 10 ml PO Q4H PRN PRN Reason: COUGH Last Admin: 06/25/16 06:11 Dose: 10 ml Insulin Aspart (Novolog Vial Sliding Scale -) 1 vial SQ TIDAC [facility] PRN Reason: Protocol Last Admin: 06/25/16 06:13 Dose: 10 units Insulin Detemir (Levemir Vial) 8 units SQ HS [facility] Last Admin: 06/24/16 21:31 Dose: 8 units Lisinopril (Prinivil) 5 mg PO DAILY [facility] Last Admin: 06/25/16 09:38 Dose: 5 mg Pantoprazole Sodium (Protonix -) 40 mg PO DAILY [facility] Last Admin: 06/25/16 09:38 Dose: 40 mg Polyethylene Glycol (Miralax (For Daily Use) -) 17 gm PO DAILY [facility] Last Admin: 06/25/16 09:38 Dose: Not Given Prednisone (Deltasone -) 40 mg PO BID [facility] Last Admin: 06/25/16 09:34 Dose: 40 mg Saliva Substitute (Mouthkote Solution -) 1 applic MM DAILY [facility] Last Admin: 06/25/16 09:40 Dose: 1 applic Sitagliptin Phosphate (Januvia -) 50 mg PO [facility] Last Admin: 06/25/16 06:11 Dose: 50 mg Spironolactone (Aldactone -) 25 mg PO DAILY [facility] Last Admin: 06/25/16 09:33 Dose: 25 mg Tiotropium [place] (Spiriva -) 1 puff IH DAILY [facility] Last Admin: 06/25/16 09:41 Dose: 1 puff Zolpidem Tartrate (Ambien -) 10 mg PO HS PRN PRN Reason: INSOMNIA Last Admin: 06/24/16 21:29 Dose: 10 mg - Objective Vital Signs: Vital Signs Temperature 98.8 F 06/25/16 06:00 Pulse Rate 68 06/25/16 09:35 Respiratory Rate 20 06/25/16 06:00 Blood Pressure 136/74 06/25/16 06:00 O2 Sat by Pulse Oximetry (%) 97 06/24/16 21:00 Labs: CBC, BMP 06/25/16 05:55 06/25/16 05:55 INR, PTT INR 1.22 (0.82-1.09) H 06/13/16 16:31 Problem List - Problems (1) COPD exacerbation Code(s): J44.1 - CHRONIC OBSTRUCTIVE PULMONARY DISEASE W (ACUTE) EXACERBATION (2) Chest pain Code(s): R07.9 - CHEST PAIN, UNSPECIFIED Qualifiers: Chest pain type: unspecified Qualified Code(s): R07.9 - Chest pain, unspecified (3) NSTEMI (non-ST elevated myocardial infarction) Code(s): I21.4 - NON-ST ELEVATION (NSTEMI) MYOCARDIAL INFARCTION (4) Atrial fibrillation Code(s): I48.91 - UNSPECIFIED ATRIAL FIBRILLATION Qualifiers: Atrial fibrillation type: chronic Qualified Code(s): I48.2 - Chronic atrial fibrillation
--- NOTE | 2016-06-25 10:44 | PN ---
Physical Exam: SUBJECTIVE: Patient seen and examined OBJECTIVE: Vital Signs Period Temp Pulse Resp BP Sys/Bernard Pulse Ox Last 24 Hr 97.7 F-98.8 F 68-94 20-20 111-150/42-77 97 GENERAL: The patient is awake, alert, and fully oriented, in no acute distress. HEAD: Normal with no signs of trauma. EYES: PERRL, extraocular movements intact, sclera anicteric, conjunctiva clear. No ptosis. ENT: Ears normal, nares patent, oropharynx clear without exudates, moist mucous membranes. NECK: Trachea midline, full range of motion, supple. LUNGS: Breath sounds equal, clear to auscultation bilaterally, no wheezes, no crackles, no accessory muscle use. HEART: Regular rate and rhythm, S1, S2 without murmur, rub or gallop. ABDOMEN: Soft, nontender, nondistended, normoactive bowel sounds, no guarding, no rebound, no hepatosplenomegaly, no masses. EXTREMITIES: 2+ pulses, warm, well-perfused, no edema. NEUROLOGICAL: Cranial nerves II through XII grossly intact. Normal speech, gait not observed. PSYCH: Normal mood, normal affect. SKIN: Warm, dry, normal turgor, no rashes or lesions noted Laboratory Results - last 24 hr 06/24/16 06/24/16 06/25/16 11:21 17:38 05:55 WBC 11.5 H D RBC 4.37 Hgb 11.6 Hct 36.3 MCV 83.0 MCHC 32.1 RDW 19.9 H Plt Count 167 D MPV 11.4 H Sodium Potassium Chloride Carbon Dioxide Anion Gap BUN Creatinine Creat Clearance w eGFR POC Glucometer 299 292 Random Glucose Calcium Total Bilirubin AST ALT Alkaline Phosphatase Total Protein Albumin 06/25/16 06/25/16 05:55 06:13 WBC RBC Hgb Hct MCV MCHC RDW Plt Count MPV Sodium 139 Potassium 4.9 Chloride 100 Carbon Dioxide 34 H Anion Gap 5 L BUN 28 H Creatinine 0.9 Creat Clearance w eGFR > 60 POC Glucometer 356 Random Glucose 326 H* D Calcium 8.8 Total Bilirubin 0.5 AST 27 ALT 50 D Alkaline Phosphatase 137 H D Total Protein 5.9 L D Albumin 2.9 L Active Medications Generic Name Dose Route Start Last Admin Trade Name Freq PRN Reason Stop Dose Admin Acetaminophen 650 mg 06/14/16 01:07 06/25/16 10:04 Tylenol - PO 650 mg Q6H PRN Administration FEVER OR PAIN Artificial Tears 1 drop 06/22/16 11:11 Artificial Tears OU QID PRN DRY EYES Aspirin 81 mg 06/14/16 10:00 06/25/16 09:33 Asa - PO 81 mg DAILY [facility] Administration Atorvastatin Calcium 20 mg 06/13/16 22:00 06/24/16 21:29 Lipitor - PO 20 mg HS [facility] Administration Benzocaine/Menthol 1 each 06/16/16 09:27 06/17/16 05:45 Cepacol Lozenge - MM 1 each Q4H PRN Administration SORE THROAT Bisacodyl 5 mg 06/22/16 11:10 06/24/16 10:29 Dulcolax - PO 5 mg DAILY PRN Administration CONSTIPATION Budesonide/Formoterol Fumarate 2 puff 06/17/16 11:30 06/25/16 09:39 Symbicort 160/4.5mcg - IH 2 puff BID [facility] Administration Carvedilol 12.5 mg 06/13/16 22:00 06/25/16 09:34 Coreg - PO 12.5 mg BID [facility] Administration Clopidogrel Bisulfate 75 mg 06/14/16 10:00 06/25/16 09:38 Plavix - PO 75 mg DAILY [facility] Administration Colchicine 0.6 mg 06/14/16 10:00 06/25/16 09:34 Colcrys - PO 0.6 mg DAILY [facility] Administration Digoxin 0.125 mg 06/14/16 10:00 06/25/16 09:35 Lanoxin - PO 0.125 mg DAILY [facility] Administration Divalproex Sodium 500 mg 06/13/16 22:00 06/25/16 09:35 Depakote - PO 500 mg BID [facility] Administration Docusate Sodium 100 mg 06/13/16 22:00 06/25/16 09:33 Colace - PO 100 mg BID [facility] Administration Enoxaparin Sodium 40 mg 06/21/16 10:00 06/25/16 09:37 Lovenox - SQ 40 mg DAILY [facility] Administration Escitalopram Oxalate 20 mg 06/14/16 10:00 06/25/16 09:37 Lexapro - PO 20 mg DAILY [facility] Administration Furosemide 40 mg 06/14/16 10:00 06/25/16 09:36 Lasix - PO 40 mg DAILY [facility] Administration Glipizide 5 mg 06/14/16 07:00 06/25/16 06:11 Glucotrol - PO 5 mg ACBK [facility] Administration Guaifenesin 10 ml 06/17/16 10:07 06/25/16 06:11 Robitussin Dm - PO 10 ml Q4H PRN Administration COUGH Insulin Aspart 1 vial 06/14/16 07:00 06/25/16 06:13 Novolog Vial Sliding Scale - SQ 10 units TIDAC [facility] Administration Protocol Insulin Detemir 8 units 06/16/16 22:00 06/24/16 21:31 Levemir Vial SQ 8 units HS [facility] Administration Lisinopril 5 mg 06/14/16 10:00 06/25/16 09:38 Prinivil PO 5 mg DAILY [facility] Administration Pantoprazole Sodium 40 mg 06/14/16 10:00 06/25/16 09:38 Protonix - PO 40 mg DAILY [facility] Administration Polyethylene Glycol 17 gm 06/14/16 10:30 06/25/16 09:38 Miralax (For Daily Use) - PO Not Given DAILY [facility] Prednisone 40 mg 06/24/16 22:00 06/25/16 09:34 Deltasone - PO 40 mg BID [facility] Administration Saliva Substitute 1 applic 06/17/16 13:30 06/25/16 09:40 Mouthkote Solution - MM 1 applic DAILY [facility] Administration Sitagliptin Phosphate 50 mg 06/14/16 07:00 06/25/16 06:11 Januvia - PO 50 mg ACBK [facility] Administration Spironolactone 25 mg 06/14/16 10:00 06/25/16 09:33 Aldactone - PO 25 mg DAILY [facility] Administration Tiotropium [place] 1 puff 06/22/16 10:45 06/25/16 09:41 Spiriva - IH 1 puff DAILY [facility] Administration Zolpidem Tartrate 10 mg 06/22/16 21:15 06/24/16 21:29 Ambien - PO 10 mg HS PRN Administration INSOMNIA ASSESSMENT/PLAN: Problem List - Problems (1) COPD (chronic obstructive pulmonary disease) Code(s): J44.9 - CHRONIC OBSTRUCTIVE PULMONARY DISEASE, UNSPECIFIED (2) COPD exacerbation Code(s): J44.1 - CHRONIC OBSTRUCTIVE PULMONARY DISEASE W (ACUTE) EXACERBATION (3) Atrial fibrillation Code(s): I48.91 - UNSPECIFIED ATRIAL FIBRILLATION Qualifiers: Atrial fibrillation type: chronic Qualified Code(s): I48.2 - Chronic atrial fibrillation (4) Atrial fibrillation with normal ventricular rate Code(s): I48.91 - UNSPECIFIED ATRIAL FIBRILLATION (5) Bipolar I disorder with depression Code(s): F31.9 - BIPOLAR DISORDER, UNSPECIFIED (6) DVT prophylaxis Code(s): [id number] - (7) Bipolar disorder Code(s): F31.9 - BIPOLAR DISORDER, UNSPECIFIED Qualifiers: Current episode severity: unspecified (8) Diabetes Code(s): E11.9 - TYPE 2 DIABETES MELLITUS WITHOUT COMPLICATIONS Qualifiers: Diabetes mellitus type: type 2 Diabetes mellitus complication status: with unspecified complications (9) HLD (hyperlipidemia) Code(s): E78.5 - HYPERLIPIDEMIA, UNSPECIFIED (10) HTN (hypertension) Code(s): I10 - ESSENTIAL (PRIMARY) HYPERTENSION Qualifiers: Hypertension type: essential hypertension Qualified Code(s): I10 - Essential (primary) hypertension (11) Obesity Code(s): E66.9 - OBESITY, UNSPECIFIED Qualifiers: Obesity type: due to excess calories Obesity severity: non-morbid Qualified Code(s): E66.09 - Other obesity due to excess calories (12) Systolic CHF Code(s): I50.20 - UNSPECIFIED SYSTOLIC (CONGESTIVE) HEART FAILURE Qualifiers: Congestive heart failure chronicity: unspecified congestive heart failure chronicity Qualified Code(s): I50.20 - Unspecified systolic (congestive) heart failure
--- NOTE | 2016-06-25 11:19 | DS ---
[id number] Rate 20 06/25/16 10:00 Blood Pressure 159/86 06/25/16 10:00 O2 Sat by Pulse Oximetry (%) 97 06/24/16 21:00 Constitutional: Yes: No Distress, Calm Cardiovascular: Yes: Pulse Irregular Respiratory: Yes: Diminished, Rhonchi Gastrointestinal: Yes: Normal Bowel Sounds, Soft. No: Distention, Tenderness Edema: No Psychiatric: Yes: Alert, Oriented Labs: CBC, BMP 06/25/16 05:55 06/25/16 05:55 Discharge Summary Reason For Visit: OBSTRUCTIVE CHRONIC BRONCHITIS WITH EXACERBATION Current Active Problems Acute on chronic systolic (congestive) heart failure (Acute) COPD (chronic obstructive pulmonary disease) (Acute) COPD exacerbation (Acute) Chest pain (Acute) NSTEMI (non-ST elevated myocardial infarction) (Acute) Renal dysfunction (Acute) Subconjunctival hemorrhage of left eye (Acute) AA (alcohol abuse) (Chronic) Alcohol dependence (Chronic) Atrial fibrillation (Chronic) Hospital Course: Admitted for COPD exacerbation and LV systolic dysfunction Seen by Cardiology and Pulmonary She was started on Solumedrol , antibiotics and IV Lasix Has Afib-- s/p AICD-- not on anticoagulation due to the fact that she is an alcoholic and had multiple falls in the past Seen by me today Breath sounds are better Ronchi decreased She will be transferred to [facility] for dc Condition: Stable - Instructions Referrals: Lynette Cárdenas [Primary Care Provider] - [facility] - Home Medications Comprehensive Discharge Medication List: Ambulatory Orders Aspirin [ASA -] 81 mg PO DAILY 01/29/16 Clopidogrel Bisulfate [Plavix -] 75 mg PO DAILY 01/29/16 Colchicine 0.6 mg PO DAILY 01/29/16 Digoxin [Lanoxin -] 0.125 mg PO DAILY 01/29/16 Divalproex [Depakote -] 500 mg PO BID 01/29/16 Docusate Sodium [Colace -] 100 mg PO BID 01/29/16 Ferrous Sulfate 325 mg PO DAILY 01/29/16 Furosemide [Lasix -] 40 mg PO DAILY 01/29/16 Glipizide [Glucotrol] 5 mg PO DAILY 01/29/16 Linaclotide [Linzess] 290 mcg PO DAILY 01/29/16 Lisinopril [Prinivil] 5 mg PO DAILY 01/29/16 Sitagliptin Phosphate [Januvia -] 50 mg PO DAILY 01/29/16 Carvedilol 12.5 mg PO BID #30 tablet 02/27/16 Escitalopram Oxalate [Lexapro -] 20 mg PO DAILY #30 tablet 02/27/16 Ranitidine [Zantac -] 150 mg PO HS #30 tablet 02/27/16 Simvastatin 40 mg PO HS #30 tablet 02/27/16 Spironolactone 25 mg PO DAILY #30 tablet 02/27/16 Zolpidem Tartrate [Ambien] 10 mg PO HS PRN #30 tablet MDD 1 02/27/16 Insulin Sliding Scale [Novolog Vial Sliding Scale -] 0 vial SQ ACHS 03/06/16 Folic Acid - 1 mg PO DAILY tablet 03/11/16 Levofloxacin [Levaquin] 250 mg PO DAILY #1 tablet 03/12/16 Prednisone [Deltasone -] 40 mg PO DAILY #3 tablet 03/12/16
--- NOTE | 2016-06-25 12:50 | PN ---
Progress Note, Physician History of Present Illness: The patient is a 70 year old black female, with a significant past medical history of cerebral aneurysm s/p bleed s/p repair (06/2015), HLD, HTN, DM, CAD s/ p MIs, diastolic CHF, pacemaker, Afib on asa and plavix, who presents to the emergency department from [facility] with SOB and cough for 2 weeks. She reports having tightness and soreness in her chest whenever she coughs. She denies any chest pain when she does not cough. She reports having decreased appetite. Patient also notes having chills and being weak since being symptomatic. She reports having a neb treatment with no significant improvement at her [place]. She denies recent fevers, headache or dizziness. She denies recent nausea, vomit, diarrhea or constipation. She denies recent dysuria, frequency, urgency or hematuria. +sick contacts at [facility] - Current Medication List Current Medications: Active Medications Acetaminophen (Tylenol -) 650 mg PO Q6H PRN PRN Reason: FEVER OR PAIN Last Admin: 06/25/16 10:04 Dose: 650 mg Artificial Tears (Artificial Tears) 1 drop OU QID PRN PRN Reason: DRY EYES Aspirin (Asa -) 81 mg PO DAILY [facility] Last Admin: 06/25/16 09:33 Dose: 81 mg Atorvastatin Calcium (Lipitor -) 20 mg PO HS [facility] Last Admin: 06/24/16 21:29 Dose: 20 mg Benzocaine/Menthol (Cepacol Lozenge -) 1 each MM Q4H PRN PRN Reason: SORE THROAT Last Admin: 06/17/16 05:45 Dose: 1 each Bisacodyl (Dulcolax -) 5 mg PO DAILY PRN PRN Reason: CONSTIPATION Last Admin: 06/24/16 10:29 Dose: 5 mg Budesonide/Formoterol Fumarate (Symbicort 160/4.5mcg -) 2 puff IH BID [facility] Last Admin: 06/25/16 09:39 Dose: 2 puff Carvedilol (Coreg -) 12.5 mg PO BID [facility] Last Admin: 06/25/16 09:34 Dose: 12.5 mg Clopidogrel Bisulfate (Plavix -) 75 mg PO DAILY [facility] Last Admin: 06/25/16 09:38 Dose: 75 mg Colchicine (Colcrys -) 0.6 mg PO DAILY [facility] Last Admin: 06/25/16 09:34 Dose: 0.6 mg Digoxin (Lanoxin -) 0.125 mg PO DAILY [facility] Last Admin: 06/25/16 09:35 Dose: 0.125 mg Divalproex Sodium (Depakote -) 500 mg PO BID [facility] Last Admin: 06/25/16 09:35 Dose: 500 mg Docusate Sodium (Colace -) 100 mg PO BID [facility] Last Admin: 06/25/16 09:33 Dose: 100 mg Enoxaparin Sodium (Lovenox -) 40 mg SQ DAILY [facility] Last Admin: 06/25/16 09:37 Dose: 40 mg Escitalopram Oxalate (Lexapro -) 20 mg PO DAILY [facility] Last Admin: 06/25/16 09:37 Dose: 20 mg Furosemide (Lasix -) 40 mg PO DAILY [facility] Last Admin: 06/25/16 09:36 Dose: 40 mg [facility] -) [facility] Last Admin: 06/25/16 06:11 Dose: 5 mg Guaifenesin (Robitussin Dm -) 10 ml PO Q4H PRN PRN Reason: COUGH Last Admin: 06/25/16 06:11 Dose: 10 ml Insulin Aspart (Novolog Vial Sliding Scale -) 1 vial SQ TIDAC [facility] PRN Reason: Protocol Last Admin: 06/25/16 12:11 Dose: 2 units Insulin Detemir (Levemir Vial) 8 units SQ HS [facility] Last Admin: 06/24/16 21:31 Dose: 8 units Lisinopril (Prinivil) 5 mg PO DAILY [facility] Last Admin: 06/25/16 09:38 Dose: 5 mg Pantoprazole Sodium (Protonix -) 40 mg PO DAILY [facility] Last Admin: 06/25/16 09:38 Dose: 40 mg Polyethylene Glycol (Miralax (For Daily Use) -) 17 gm PO DAILY [facility] Last Admin: 06/25/16 09:38 Dose: Not Given Prednisone (Deltasone -) 40 mg PO BID [facility] Last Admin: 06/25/16 09:34 Dose: 40 mg Saliva Substitute (Mouthkote Solution -) 1 applic MM DAILY [facility] Last Admin: 06/25/16 09:40 Dose: 1 applic Sitagliptin Phosphate (Januvia -) 50 mg PO ACBK [facility] Last Admin: 06/25/16 06:11 Dose: 50 mg Spironolactone (Aldactone -) 25 mg PO DAILY [facility] Last Admin: 06/25/16 09:33 Dose: 25 mg Tiotropium Cocoa (Spiriva -) 1 puff IH DAILY [facility] Last Admin: 06/25/16 09:41 Dose: 1 puff Zolpidem Tartrate (Ambien -) 10 mg PO HS PRN PRN Reason: INSOMNIA Last Admin: 06/24/16 21:29 Dose: 10 mg - Objective Vital Signs: Vital Signs Temperature 98.3 F 06/25/16 10:00 Pulse Rate 68 06/25/16 10:00 Respiratory Rate 20 06/25/16 10:00 Blood Pressure 159/86 06/25/16 10:00 O2 Sat by Pulse Oximetry (%) 96 06/25/16 09:00 Eyes: Yes: WNL, Conjunctiva Clear, EOM Intact HENT: Yes: WNL, Atraumatic, Normocephalic Neck: Yes: WNL, Supple, Trachea Midline Cardiovascular: Yes: WNL, Regular Rate and Rhythm Respiratory: Yes: WNL, Regular, CTA Bilaterally Gastrointestinal: Yes: WNL, Normal Bowel Sounds Genitourinary: Yes: WNL Musculoskeletal: Yes: WNL Extremities: Yes: WNL Edema: No Integumentary: Yes: WNL Neurological: Yes: WNL, Alert, Oriented ...Motor Strength: WNL Psychiatric: Yes: WNL Labs: CBC, BMP 06/25/16 05:55 06/25/16 05:55 INR, PTT INR 1.22 (0.82-1.09) H 06/13/16 16:31 Assessment/Plan - Problems (1) COPD exacerbation Assessment/Plan: bronchodilators, steroids, and O2 per zoology professor. Code(s): J44.1 - CHRONIC OBSTRUCTIVE PULMONARY DISEASE W (ACUTE) EXACERBATION (2) Chest pain Assessment/Plan: non-obstructive CAD on most recent coronary angiogram. Continue anti-ischemic/CHF medications. On ASA and clopidogrel. Physical rehabilitaion. Code(s): R07.9 - CHEST PAIN, UNSPECIFIED Qualifiers: Chest pain type: unspecified Qualified Code(s): R07.9 - Chest pain, unspecified (3) Renal dysfunction Assessment/Plan: avoid dehydration (would discontinue furosemide); f/u BUN/Cr, Is and Os (also on aldactone). Code(s): N28.9 - DISORDER OF KIDNEY AND URETER, UNSPECIFIED (4) Subconjunctival hemorrhage of left eye Code(s): H11.32 - CONJUNCTIVAL HEMORRHAGE, LEFT EYE (5) AA (alcohol abuse) Code(s): F10.10 - ALCOHOL ABUSE, UNCOMPLICATED (6) Atrial fibrillation Assessment/Plan: On carvedilol for AF HR control (as well as for severe systolic LV dysfunction and HTN). On ASA and clopidogrel (CAD and PAD); off systemic anticoagulant due to hx cerebral bleed. Code(s): I48.91 - UNSPECIFIED ATRIAL FIBRILLATION Qualifiers: Atrial fibrillation type: chronic Qualified Code(s): I48.2 - Chronic atrial fibrillation (7) Bipolar I disorder with depression Code(s): F31.9 - BIPOLAR DISORDER, UNSPECIFIED (8) Acute on chronic systolic (congestive) heart failure Assessment/Plan: Continue Coreg, lisinopril, Aldactone. On digoxin; keep level 0.5-1.0 (presently 0.7) Would discontinue furosemide (no JVD; CXR without acute changes; CT chest without definite infiltrates; rising BUN). F/u K+; pt is on both ACEI and spironolactone. Code(s): I50.23 - ACUTE ON CHRONIC SYSTOLIC (CONGESTIVE) HEART FAILURE
[2016-06-25 14:44] VITALS: BP 126/62; PULSE 91; TEMP 98.5
== END 2016-06-25 17:47 | DRG 190 ==
LOC: JER 15:33 → JERBED 19:33 → J4W 23:56 → J5S 06-18 18:54
PROVIDERS: ADMIT Internal Medicine; ATTEND Internal Medicine
DX: J44.1 Chronic obstructive pulmonary disease with (acute) exacerbation (principal); I50.23 Acute on chronic systolic (congestive) heart failure; F31.89 Other bipolar disorder; I11.0 Hypertensive heart disease with heart failure; E78.5 Hyperlipidemia, unspecified; E11.9 Type 2 diabetes mellitus without complications; I25.10 Atherosclerotic heart disease of native coronary artery without angina pectoris; I25.2 Old myocardial infarction; I48.91 Unspecified atrial fibrillation; N28.9 Disorder of kidney and ureter, unspecified; N31.9 Neuromuscular dysfunction of bladder, unspecified; H11.32 Conjunctival hemorrhage, left eye; F10.10 Alcohol abuse, uncomplicated; E66.8 Other obesity; Z68.35 Body mass index [BMI] 35.0-35.9, adult; Z71.3 Dietary counseling and surveillance; Z95.0 Presence of cardiac pacemaker; Z95.5 Presence of coronary angioplasty implant and graft; Z87.891 Personal history of nicotine dependence
CPT/HCPCS: 36415; 71010-TC; 71250-TC; 80053; 80162; 80164; 82550; 82553; 83605; 83880; 84484; 85025; 85027; 85610; 87040; 87254; 87804; 93005; 93010; 93306-TC; 94010; 94640; 97116-GP; 97161-GP; 99284-25